=== PATIENT | male | born 1955 | race Caucasian/White ===

== ENCOUNTER 2020-05-11 09:32 | Inpatient (IN) | payer MEDICARE, OTHER, SELFPAY ==
[2020-05-11] VITALS (15 sets, daily range): BP systolic 107–150; BP diastolic 61–78; PULSE 89–100; RESP 11–37; TEMP 36.2–36.6; O2SAT 80–97; BMI 34.5
--- NOTE | ~2020-05-11 | XR_ITS ---
EXAMINATION: XR chest 1V portable EXAM DATE: 05/11/2020 10:25 INDICATION: Shortness of breath, chest tightness. TECHNIQUE: Portable AP frontal chest x-ray was obtained. Comparison is made to prior examination from 06/08/2017. FINDINGS: Mild cardiomegaly. Pulmonary vascular congestion. Bibasilar subsegmental atelectasis. There is indistinct reticulation with a bibasal predominance which may indicate pulmonary edema. No sizabl e pleural effusion. No pneumothorax. Mild bony degenerative changes. IMPRESSION: 1. Findings consistent with mild CHF exacerbation. 2. Bibasilar subsegmental atelectasis. Reviewed, dictated and finalized at location B. ROENTEROLOGY NURSE
--- NOTE | ~2020-05-11 | US_ITS ---
EXAMINATION:US venous doppler LE BI INDICATION:Calf pain and edema TECHNIQUE: Multiple grayscale, color flow and Doppler images of the right and left lower extremity de ep venous systems were obtained and reviewed. COMPARISON: No prior studies for comparison. FINDINGS: The common femoral, superficial femoral and popliteal veins demonstrate normal respiratory variation, augmentation and compressibility. Color flow is also seen within the posterior tibial, pe roneal, greater saphenous and profunda veins. Right peroneal vein not well visualized. IMPRESSION: 1: No lower extremity deep venous thrombosis. Reviewed, dictated and finalized at location A. EDIENT SPECIALIST
--- NOTE | 2020-05-11 10:06 | ECG_ITS ---
Measurements Intervals [place] Rate: 98 P: 58 MO: 165 QRS: 60 QRSD: 93 T: 41 QT: 311 QTc: 397 Interpretive Statements SINUS RHYTHM DELAYED PRECORDIAL R/S TRANSITION BASELINE ARTIFACT- I, II, III, AVR, AVL, AVF, V5-V6 BORDERLINE ECG Electronically Signed On 05-11-2020 10:29:16 [employer]SE BUILDER by Marlon Andrade D.O.
[2020-05-11 10:21] LABS: Hemoglobin 14.8 g/dL (14.0-18.0); Immature Platelet Fraction Pct 7.3 % (0.9-11.2); Mean Corpuscular HGB Conc 30.2 g/dl (32-36); Mean Corpuscular Hemoglobin 27.7 pg (26-34); Mean Corpuscular Volume 91.8 fl (80-100); Mean Platelet Volume 11.6 fl (7.4-10.4); Platelet Count Result 235 k/mm3 (150-375); Red Blood Count 5.34 M/mm3 (4.6-6.20); Red Cell Distribution Width 15.4 % (11.5-14.5); White Blood Count 12.3 K/mm3 (4.5-10.0)
[2020-05-11 10:23] LABS: Alveolar/Arterial O2 Gradient 66.1 mmHg; Base Excess ABG 5.3 mEq/l (+/-2.0); Device NASAL CANNULA; Fractional Inspired Oxygen 28 %; HCO3 ABG 32.2 mEq/l (22.0-26.0); Modified Allen's Test Pass; Oxygen Content ABG 18.7 %vol (16.0-22.0); Oxygen Saturation ABG 92.7 % (95.0-100.0); Oxyhemoglobin 91.6 % THb (90.0-100.0); PO2 ABG 67.5 mmHg (80.0-100.0); PO2 FiO2 Ratio Arterial Blood 2.41 %; Site Drawn LEFT RADIAL; Total Hemoglobin 14.5 g/dL (12.0-18.0); pH ABG 7.377 (7.350-7.450)
[2020-05-11 10:37] LABS: Lymphocytes Absolute Manual 1.59 K/mm3 (1.1-4.5); Monocytes Absolute Manual 0.86 K/mm3 (0.1-0.90); Monocytes Percent Manual 7 % (3-9); Neutrophils Percent Manual 80 % (46-73); Platelet Estimate Adequate (Adequate); Total Cells Counted 100
[2020-05-11 10:38] LABS: Hypochromasia 1+ (NORMAL); Stomatocytes 1+ (NORMAL)
[2020-05-11 10:39] LABS: Ovalocytes 1+ (NORMAL)
[2020-05-11 10:42] LABS: Partial Thromboplastin Time 21.3 SECONDS (22.3-36.8)
[2020-05-11 10:43] LABS: INR 0.8; Prothrombin Time 11.9 Seconds (11.1-14.7)
[2020-05-11 10:44] LABS: Alanine Aminotransferase 18 U/L (4-50); Albumin Level 4.4 g/dL (3.5-5.1); Alkaline Phosphatase 67 U/L (38-126); Anion Gap 8 mmol/L (8-16); Aspartate Amino Transferase 34 U/L (17-59); Bilirubin,Total 0.7 mg/dL (0.2-1.3); Blood Urea Nitrogen 20 mg/dL (9-20); Calcium 9.6 mg/dL (8.4-10.2); Carbon Dioxide 36 mmol/L (22-30); Chloride 97 mmol/L (98-107); Estimated CRCL calculation 107 ml/min; Estimated Glomerular Filt Rate > 60; Glucose 191 mg/dL (75-110); Magnesium 1.8 mg/dL (1.6-2.3); Potassium 5.1 mmol/L (3.4-5.0); Sodium 141 mmol/L (137-145)
[2020-05-11 10:55] LABS: NT Pro B Type Natriuretic Pept 728 PG/ML (5-100); Troponin I 0.031 ng/mL (0.000-0.034)
--- NOTE | 2020-05-11 11:01 | ED.GENADULT ---
HPI - General Adult General Chief complaint: Shortness of Breath/Dyspnea Stated complaint: Low Oxygen x4 days Time Seen by Provider: 05/11/20 10:06 Source: patient, family and old records reviewed Mode of arrival: ambulatory Limitations: no limitations History of Present Illness HPI narrative: Patient is a 64-year-old male who presents from home for evaluation of described COPD exacerbation for the last 2 to 3 days patient notes feeling short of breath with his oxygenation in the seventies and eighties at home worse with minimal activity patient has not been seen for this complaint notes that he has had similar occurrence in the past patient does note productive cough and rhinorrhea and congestion over the last 2 days as well patient denies fever chest pain abdominal pain vomiting diarrhea sick contacts. Patient has been using his inhalers and nebulizer at home with no improvement. On arrival patient tachypneic with hypoxemia does not appear to be distressed or uncomfortable. Patient with history of tobacco abuse and was a former smoker. Patient lives at home with his . Patient on arrival denies any pain Related Data Home Medications Medication Instructions Recorded Confirmed amlodipine 05/11/20 amlodipine 05/11/20 05/11/20 atorvastatin 05/11/20 azithromycin 05/11/20 fluticasone propion-salmeterol INHALATION 05/11/20 fluticasone propion-salmeterol INHALATION 05/11/20 [Advair Diskus] furosemide 05/11/20 metformin mg 05/11/20 prednisone 05/11/20 ramipril mg 05/11/20 Allergies Allergy/AdvReac Type Severity Reaction Status Date / Time naproxen Allergy Unknown Hives / Verified 06/08/17 13:57 Red Face Review of Systems Review of Systems: All systems reviewed & are unremarkable except as noted in HPI and below [facility] Past Medical History Medical History (Updated 05/11/20 @ 12:59 by Agustin Silva PA-C) COPD (chronic obstructive pulmonary disease) Diabetes mellitus type 2 in nonobese Hypertension Social History Social History (Updated 05/11/20 @ 11:03 by Agustin Silva PA-C) Smoking status: Former smoker Exam Narrative: Exam Narrative: GENERAL: Well-appearing, obese, and in no acute distress. HEAD: Normocephalic, atraumatic. EYES: PERRLA and EOMI. ENT: Nares clear, no rhinorrhea or epistaxis. Mucous membranes moist. NECK: Supple. No adenopathy or masses. CHEST: Diminished on auscultation. No respiratory distress. No wheezes rales or rhonchi HEART: Regular rate and rhythm. No murmur heard. Normal peripheral pulses. ABDOMEN: Soft, nontender, nondistended EXTREMITIES: Normal range of motion. No edema. SKIN: Warm, dry, no rash. NEURO: No focal deficits. Alert and oriented x3. Cranial nerves II through XII grossly intact PSYCH: Normal mood and affect. Course Course Emergency Course: Patient is a 64-year-old male who presented with hypoxemia and URI symptoms will be placed in hospital for further evaluation was given Lasix given the congestive findings on chest x-ray coupled with his BMP. Patient resting comfortably in the room in no distress will be swabbed for Covid given his URI symptoms. Patient will also be managed as a COPD exacerbation given his similar occurrence in the past Consultations Consultation #1: Discussed case with hospitalist who has agreed to accept the patient would like the patient to be placed on medical floor Date: 05/11/20 Time: 12:59 Vital Signs Vital signs: Vital Signs Temperature 97.9 F 05/11/20 09:35 Pulse Rate 98 05/11/20 09:35 Respiratory Rate 26 H 05/11/20 09:35 Blood Pressure 112/67 05/11/20 09:35 Pulse Oximetry 80 L 05/11/20 09:35 Temperature 97.9 F 05/11/20 09:35 Pulse Rate 100 05/11/20 12:32 Respiratory Rate 21 H 05/11/20 12:32 Blood Pressure 130/69 05/11/20 12:32 Pulse Oximetry 95 05/11/20 12:32 Medical Decision Making MDM Narrative Medical decision making narrative: Patient evaluated the nahomy
[2020-05-11 11:02] LABS: Add Urine Microscopic? NO; Appearance Urine Clear (Clear); Bilirubin Urine Negative (Negative); Blood Urine Negative (Negative); Color Urine Straw (Yellow); Glucose Urine UA Negative (Negative); Ketones Urine Negative (Negative); Leukocyte Esterase Ur Negative LEU/UL (Negative); Mucus Urine Rare /lpf; Nitrate Urine Negative (Negative); Protein Urine Negative (Negative); RBC Urine 0-2 /hpf (0-2); Specific Grav Ur 1.011 (1.001-1.035); Urobilinogen Urine Negative mg/dL (<2.0); WBC Urine 0-3 /hpf
[2020-05-11] MEDS: FUROSEMIDE INJ 40 MG/4 ML VIAL IV PUSH (11:45)
--- NOTE | 2020-05-11 14:01 | PC.NURSE ---
This patient, Fadi Greenwood, was admitted to [facility] Surg Room 329-01. Patient/family oriented to hospital policies and general routines including ID bracelet, bed and alarms, visiting hours, pain management, procedures, bathroom and other care routines, personal items, smoking policy, room service/diet, and visiting hours. Information on how to activate the Rapid Response Team has been discussed. Patient/Family are encouraged to report perceived risks to care and to ask questions if they do not understand what they are told or what they should do.
--- NOTE | 2020-05-11 15:00 | PM.IMHP ---
H&P: HPI History of Present Illness Date/Time: 05/11/20 15:00 Chief Complaint: Shortness of breath. Narrative: This is a 64-year-old male, former smoker, with COPD, chronic respiratory failure on nocturnal oxygen, type 2 diabetes mellitus, hypertension, and hyperlipidemia who presented to the emergency department earlier today from home with complaints of shortness of breath. He began feeling short of breath about 3 days ago reports progressive dyspnea on lesser and lesser exertion as well as a cough occasionally productive of yellow sputum. This typically happens to him once a year around this time, and he was prescribed a prednisone burst and azithromycin 2 days ago by his primary care provider. Unfortunately he continues to feel poorly and reports wheezing more than usual and despite using his inhalers and nebulizers. Sometime during the middle of the night he awoke suddenly with shortness of breath with reports of an SpO2 in the 70s and 80s at home, prompting his visit to the emergency department today. Chest x-ray done today showed evidence of pulmonary vascular congestion and mild cardiomegaly, and with further questioning he denies having history of congestive heart failure however he does see a form block maker and has a yearly echocardiogram, most recently taken just 2 weeks ago at [facility] in [place]. Prior to last night, he was not experiencing orthopnea or PND. He does have occasional lower extremity edema but nothing significant. He has not had fever, chills, or sweats. No anosmia or dysgeusia. No chest pain or pleuritic pain. He denies history of venous thromboembolism. No calf pain or tenderness. No known exposure to those positive for COVID-19. Review of Systems Review of Systems: Narrative: Twelve systems were reviewed with pertinent positives and negatives as per HPI. No headache. She has he has had some mild sinus congestion. No otalgia or odynophagia. He denies exertional chest pain and pleuritic pain. No nausea, vomiting, or diarrhea. Except as documented, all other systems were reviewed and are negative. [facility] Past Medical History Medical History (Updated 05/11/20 @ 20:41 by Ciara Stoddard PA-C) Anxiety Chronic obstructive pulmonary disease Chronic respiratory failure with hypoxia, on home oxygen therapy Patient wears 2 L nasal cannula at nighttime. Diabetic peripheral neuropathy Former smoker Patient smoked anywhere from 0.5 to 2 packs of cigarettes per day. Hyperlipidemia Hypertension Type 2 diabetes mellitus Surgical History Surgical History (Updated 05/11/20 @ 14:12 by Ciara Stoddard PA-C) History of abdominal surgery As an infant. Patient is a poor historian regarding this surgery but does have a midline abdominal scar. History of colonoscopy with polypectomy Family History Family History Father Acute myocardial infarction, Onset Age: 50 Social History Social History (Updated 05/11/20 @ 20:37 by Ciara Stoddard PA-C) Social History: The patient is and lives with his in [place]. He retired from [employer]. Smoked 0.5 to 2 packs of cigarettes per day for many years and quit about 5 years ago. 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 No illicit substance use. He designates his Arlene as his surrogate decision maker and he wishes to be a full code. Smoking packs per day: 1 Smoking cigarettes per day: 20.0 Smoking status: Former smoker Tobacco type: cigarettes Second hand tobacco smoke exposure: No Alcohol intake: former Substance use: former Gender identity (if verbalized by the patient): Male Sexual Orientation (if Verbalized by the Patient): Straight or Heterosexual Spiritual care concerns: No Meds Home Medications and Allergies Home Medications Medication Instructions Recorded Confirmed
[2020-05-11 17:39] LABS: Potassium 4.8 mmol/L (3.4-5.0)
[2020-05-11 18:38] LABS: Hemoglobin A1C 6.7 % (<5.7)
[2020-05-11] MEDS: INSULIN ASPART (*BKC) 100 UNITS/ML SUB-Q ×2 (19:06→22:35)
[2020-05-11] MEDS: FUROSEMIDE INJ 40 MG/4 ML VIAL 20 MG IV PUSH (19:08)
[2020-05-11 19:09] LABS: Glucose Point of Care 240 (65-105)
--- NOTE | 2020-05-11 20:28 | ECG_ITS ---
Measurements Intervals [place] Rate: 84 P: 55 GA: 174 QRS: 64 QRSD: 94 T: 56 QT: 354 QTc: 420 Interpretive Statements SINUS RHYTHM BASELINE ARTIFACT- I, II, III, AVR, AVF NORMAL ECG Electronically Signed On 05-12-2020 7:08:48 [employer] BARREL FINISHER by Marlon Andrade D.O.
[2020-05-11] MEDS: guaiFENesin 12 HR 600 MG TABCR PO (20:37)
[2020-05-11 21:06] LABS: SARS-CoV-2 RNA PCR Negative
[2020-05-11 21:16] LABS: Glucose Point of Care 284 (65-105)
[2020-05-11] MEDS: metFORMIN HCL 500 MG TABLET 1000 MG PO (22:34)
[2020-05-11] MEDS: FLUTICASONE/SALMETEROL 115-21 MCG INHALER 1 PUFF 2 PUFF INHALATION (22:50)
[2020-05-12] VITALS (17 sets, daily range): BP systolic 110–142; BP diastolic 57–68; PULSE 59–97; RESP 18–20; TEMP 36.5–36.6; O2SAT 86–94
[2020-05-12 00:19] LABS: Glucose Point of Care 101 (65-105)
[2020-05-12 06:16] LABS: Hematocrit 49.5 % (42.0-52.0); Hemoglobin 14.6 g/dL (14.0-18.0); Mean Corpuscular HGB Conc 29.5 g/dl (32-36); Mean Corpuscular Hemoglobin 27.5 pg (26-34); Mean Corpuscular Volume 93.2 fl (80-100); Mean Platelet Volume 9.5 fl (7.4-10.4); Platelet Count Result 249 k/mm3 (150-375); Red Blood Count 5.31 M/mm3 (4.6-6.20); Red Cell Distribution Width 15.3 % (11.5-14.5); White Blood Count 9.4 K/mm3 (4.5-10.0)
[2020-05-12 06:49] LABS: Blood Urea Nitrogen 21 mg/dL (9-20); Calcium 9.3 mg/dL (8.4-10.2); Carbon Dioxide > 40 mmol/L (22-30); Chloride 95 mmol/L (98-107); Estimated CRCL calculation 96 ml/min; Estimated Glomerular Filt Rate > 60; Glucose 105 mg/dL (75-110); Magnesium 1.9 mg/dL (1.6-2.3); Potassium 4.6 mmol/L (3.4-5.0); Sodium 140 mmol/L (137-145)
[2020-05-12] MEDS: ENOXAPARIN 40 MG/0.4 ML SYRINGE SUB-Q (10:16)
[2020-05-12] MEDS: guaiFENesin 12 HR 600 MG TABCR PO ×2 (10:16→21:46)
[2020-05-12] MEDS: predniSONE 20 MG TABLET 40 MG PO (10:16)
[2020-05-12] MEDS: ramipriL 5 MG CAPSULE 20 MG PO (10:18)
[2020-05-12] MEDS: FUROSEMIDE 20 MG TABLET PO (10:18)
[2020-05-12] MEDS: AZITHROMYCIN 250 MG TABLET 500 MG PO (10:18)
[2020-05-12] MEDS: ATORVASTATIN 20 MG TABLET PO (10:19)
[2020-05-12] MEDS: metFORMIN HCL 500 MG TABLET 1000 MG PO (10:19)
[2020-05-12] MEDS: amLODIPine BESYLATE 5 MG TABLET 10 MG PO (10:19)
[2020-05-12 12:16] LABS: Glucose Point of Care 236 (65-105)
[2020-05-12] MEDS: FLUTICASONE/SALMETEROL 115-21 MCG INHALER 1 PUFF 2 PUFF INHALATION ×2 (12:48→21:46)
--- NOTE | 2020-05-12 14:14 | PCRCNOTE ---
HOME O2 EVAL DONE, PT REQUIRES 2 L REST AND 4 L WITH EXERTION. SET UP WITH [facility] AND THEY WILL BRING UP TANK FOR D/C HOME
--- NOTE | 2020-05-12 14:20 | HOMEO2EVAL ---
Home Oxygen Evaluation RC: Home Oxygen (O2) Evaluation Start: 05/11/20 17:15 Freq: ONCE Status: Active Protocol: RPE Activity Type Activity Date Activity User E-Sign Co-Sign Detail Recorded Client Recorded Date Recorded By Document 05/12/20 11:00 [email or web address] [email or web address] 05/12/20 14:20 ELIZA Document 05/12/20 11:03 ELIZA [email or web address] 05/12/20 14:20 ELIZA Document 05/12/20 11:05 ELIZA [email or web address] 05/12/20 14:20 ELIZA Document 05/12/20 11:10 [email or web address] [email or web address] 05/12/20 14:20 ELIZA Document 05/12/20 11:13 ELIZA [email or web address] 05/12/20 14:20 ELIZA Document 05/12/20 11:15 ELIZA [email or web address] 05/12/20 14:20 ELIZA Document 05/12/20 11:25 ELIZA [email or web address] 05/12/20 14:20 ELIZA 05/12/20 05/12/20 05/12/20 11:00 11:03 11:05 Home O2 Evaluation Test Phase Resting Resting Resting Oxygen Delivery Room Air Nasal Cannula Nasal Cannula Oxygen Flow Rate (L/min) 1 2 Pulse Oximetry (90-100 %) 86 L 87 L 91 Home Oxygen Evaluation Comments Treatment Charges O2 Evaluation - Inpatient 05/12/20 05/12/20 05/12/20 11:10 11:13 11:15 Home O2 Evaluation Test Phase Exercise Exercise Exercise Oxygen Delivery Nasal Cannula Nasal Cannula Nasal Cannula Oxygen Flow Rate (L/min) 2 3 4 Pulse Oximetry (90-100 %) 86 L 87 L 90 Home Oxygen Evaluation Comments Treatment Charges 05/12/20 11:25 Home O2 Evaluation Test Phase Resting Oxygen Delivery Nasal Cannula Oxygen Flow Rate (L/min) 2 Pulse Oximetry (90-100 %) 93 Home Oxygen Evaluation Comments PT REQUIRES 2 L REST AND 4 L WITH ACTIVITY Treatment Charges
--- NOTE | 2020-05-12 16:56 | PM.IMPN ---
Progress Note: A&P Assessment and Plan (1) Acute on chronic respiratory failure with hypoxia and hypercapnia: Code(s): J96.21 - Acute and chronic respiratory failure with hypoxia; J96.22 - Acute and chronic respiratory failure with hypercapnia Status: Acute Assessment and Plan: On supplemental oxygen 2 L by NC Systemic steroids Breathing treatments Levofloxacin (2) Acute exacerbation of chronic obstructive airways disease: Code(s): J44.1 - Chronic obstructive pulmonary disease with (acute) exacerbation Status: Acute Assessment and Plan: States that this usually happens once a year as his PCP treats him with Z-pack and oral steroids but did not work this time Changed in sputum quality (3) Former smoker: Code(s): Z87.891 - Personal history of nicotine dependence Status: Acute Assessment and Plan: Quit 4 years ago. (4) Hypertension: Code(s): I10 - Essential (primary) hypertension Status: Acute Assessment and Plan: Continue home meds (5) Diabetic peripheral neuropathy: Code(s): E11.42 - Type 2 diabetes mellitus with diabetic polyneuropathy Status: Inactive Assessment and Plan: Continue home meds (6) Chronic respiratory failure with hypoxia, on home oxygen therapy: Code(s): J96.11 - Chronic respiratory failure with hypoxia; Z99.81 - Dependence on supplemental oxygen Status: Inactive Assessment and Plan: Exacerbated Continue breathing treatments. Subjective Date/time seen: 05/12/20 16:56 I feel better Review of Systems Review of Systems: Narrative: worsening sob. Constitutional: Comments: no fevers, no rigors, no chills. ENT: Comments: no throat pain, no nasal congestion. Cardiovascular: Comments: no pnd, no orthopnea. Respiratory: Comments: change in sputum quality from clear to green. Gastrointestinal: Comments: no n/v/abdominal pain/diarrhea. Musculoskeletal: Comments: no joint enlargement. Integumentary/Breasts: Comments: no rashes Neurologic: Comments: no sensory motor deficit Exam Narrative: Exam Narrative: Sitting by the edge of the bed. Const: General: comfortable, no acute distress, alert, awake and Physically active Nutritional Appearance: well nourished Orientation/consciousness: patient oriented x3 HENMT: Head: normal to inspection and normocephalic Ears: hearing grossly normal bilaterally General nose exam: Normal external nose present Face and sinus: normal facial exam Eyes: General: appearance normal, both eyes and all related structures Pupils: Equal, round and reactive pupils present EOM: EOMs intact bilaterally Neck: Neck: no lymphadenopathy, supple and no JVD Resp: Auscultation: wheezes and diminished lung sounds Cardio: Rate: regular rate Rhythm: regular rhythm GI: GI Palp: Yes Soft to palpation and Yes No hepatosplenomegaly present Skin: Rashes: no rashes Neuro: General: patient oriented x3 and CN's II-XI intact bilaterally Cranial nerves: Yes CN's II-XII intact bilaterally and Yes Equal, round and reactive pupils present Cognition (Neuro): normal cognition Speech: normal speech Gait exam (Neuro): Normal gait present Motor exam (neuro): 5/5 motor strength present throughout Extrem: General: no pedal edema Objective Data Vital Signs Vital Signs: Vital Signs - 24 hr 05/11/20 20:00 05/11/20 21:00 05/12/20 00:00 Temperature 97.1 F L Pulse Rate 91 74 Respiratory Rate 18 Blood Pressure 145/64 H Pulse Oximetry 91 93 05/12/20 04:00 05/12/20 06:00 05/12/20 06:22 Temperature 97.7 F Pulse Rate 97 93 Respiratory Rate 20 Blood Pressure 110/67 Pulse Oximetry 90 90 05/12/20 08:00 05/12/20 11:00 05/12/20 11:03 Temperature Pulse Rate 86 Respiratory Rate Blood Pressure Pulse Oximetry 86 L 87 L 05/12/20 11:05 05/12/20 11:10 05/12/20 11:13 Temperature Pulse Rate Respiratory Rate Blood Pressure
[2020-05-12 17:10] LABS: Glucose Point of Care 160 (65-105)
[2020-05-12] MEDS: methylPREDNISolone SOD SUCC 40 MG VIAL IV PUSH ×2 (18:29→23:56)
[2020-05-12 21:27] LABS: Glucose Point of Care 318 (65-105)
[2020-05-12 21:27] LABS: Glucose Point of Care 189 (65-105)
[2020-05-13] VITALS (8 sets, daily range): BP systolic 123–136; BP diastolic 58–73; PULSE 82–95; RESP 16–20; TEMP 36.4–36.7; O2SAT 87–99
[2020-05-13] MEDS: methylPREDNISolone SOD SUCC 40 MG VIAL IV PUSH ×4 (06:02→23:35)
[2020-05-13] MEDS: amLODIPine BESYLATE 5 MG TABLET 10 MG PO (08:46)
[2020-05-13] MEDS: ATORVASTATIN 20 MG TABLET PO (08:47)
[2020-05-13] MEDS: ramipriL 5 MG CAPSULE 20 MG PO (08:48)
[2020-05-13] MEDS: guaiFENesin 12 HR 600 MG TABCR PO ×2 (08:48→21:05)
[2020-05-13] MEDS: FLUTICASONE/SALMETEROL 115-21 MCG INHALER 1 PUFF 2 PUFF INHALATION ×2 (08:49→21:05)
[2020-05-13] MEDS: ENOXAPARIN 40 MG/0.4 ML SYRINGE SUB-Q (08:49)
[2020-05-13 08:56] LABS: Glucose Point of Care 195 (65-105)
[2020-05-13] MEDS: INSULIN ASPART (*BKC) 100 UNITS/ML SUB-Q ×2 (12:31→17:39)
[2020-05-13 12:41] LABS: Glucose Point of Care 354 (65-105)
--- NOTE | 2020-05-13 16:03 | PM.IMPN ---
Progress Note: A&P Assessment and Plan (1) Acute on chronic respiratory failure with hypoxia and hypercapnia: Code(s): J96.21 - Acute and chronic respiratory failure with hypoxia; J96.22 - Acute and chronic respiratory failure with hypercapnia Status: Acute Assessment and Plan: On supplemental O2 Normally on oxygen at night time Improved Will wean off of Oxygen as needed (2) Acute exacerbation of chronic obstructive airways disease: Code(s): J44.1 - Chronic obstructive pulmonary disease with (acute) exacerbation Status: Acute Assessment and Plan: Systemic steroids Breathing treatments Supplemental O2 (3) Suspected COVID-19 virus infection: Code(s): Z20.822 - Contact with and (suspected) exposure to COVID-19 Status: Acute Assessment and Plan: Ruled out. (4) Former smoker: Code(s): Z87.891 - Personal history of nicotine dependence Status: Acute Assessment and Plan: History of Tobacco use Quit 4 years ago (5) Hypertension: Code(s): I10 - Essential (primary) hypertension Status: Acute Assessment and Plan: Continue to monitor Continue home meds Subjective Date/time seen: 05/13/20 16:03 Patient states that he feels like he usually feels. No events overnight. Review of Systems Review of Systems: Narrative: Patient denies any issues. Constitutional: Comments: no fevers, no rigors, no chills. Cardiovascular: Comments: no chest pain. Respiratory: Comments: some sob. Gastrointestinal: Comments: no n/v/abdominal pain Musculoskeletal: Comments: no joint enlargement Neurologic: Comments: no sensory motor deficit Exam Narrative: Exam Narrative: Sitting by the edge of the bed. Const: General: comfortable, no acute distress, alert, awake and Physically active Nutritional Appearance: average body habitus Orientation/consciousness: patient oriented x3 HENMT: Head: normocephalic Ears: hearing grossly normal bilaterally Face and sinus: normal facial exam Eyes: General: appearance normal, both eyes and all related structures Pupils: Equal, round and reactive pupils present EOM: EOMs intact bilaterally Neck: Neck: no lymphadenopathy, supple and no JVD Resp: Auscultation: clear to auscultation bilaterally and diminished lung sounds Cardio: Jugular venous distension: no JVD Rate: regular rate Rhythm: regular rhythm GI: GI Palp: Yes Soft to palpation and Yes No hepatosplenomegaly present Skin: Wounds: no wounds Neuro: General: patient oriented x3 and CN's II-XI intact bilaterally Cranial nerves: Yes CN's II-XII intact bilaterally and Yes Equal, round and reactive pupils present Cognition (Neuro): normal cognition Motor exam (neuro): 5/5 motor strength present throughout Extrem: General: pedal edema bilaterally (ankle.) Objective Data Vital Signs Vital Signs: Vital Signs - 24 hr 05/12/20 20:00 05/12/20 22:00 05/12/20 22:04 Temperature 97.8 F Pulse Rate 89 Respiratory Rate 20 Blood Pressure 133/68 Pulse Oximetry 94 94 94 05/13/20 06:00 05/13/20 08:39 05/13/20 13:08 Temperature 97.8 F Pulse Rate 91 82 Respiratory Rate 18 16 Blood Pressure 123/73 136/63 Pulse Oximetry 92 99 87 L 05/13/20 13:10 05/13/20 13:17 05/13/20 14:00 Temperature 98.0 F Pulse Rate 95 Respiratory Rate 18 Blood Pressure 132/62 Pulse Oximetry 92 92 99 Intake/Output Intake/Output: Intake & Output 05/10/20 05/11/20 05/12/20 05/13/20 23:59 23:59 23:59 23:59 Intake Total 290 2000 790 Output Total 1000 1700 1400 Balance -710 300 -610 Meds/Results Medications: Active Medications Generic Name Dose Route Start Last Admin Trade Name Freq PRN Reason Stop Dose Admin Acetaminophen 650 mg 05/11/20 13:01 Acetaminophen 325 Mg Tablet PO Q4H PRN Mild Pain (1-3) Albuterol 2.5 mg 05/11/20 21:15 Albuterol Sulfate Neb 2.5 Mg/0.5 Ml Inh INHALATION Q4HRT PRN SOB
[2020-05-13 17:13] LABS: Glucose Point of Care 216 (65-105)
[2020-05-13 21:41] LABS: Glucose Point of Care 320 (65-105)
[2020-05-14] VITALS (7 sets, daily range): BP systolic 106–142; BP diastolic 60–70; PULSE 82–84; RESP 20; TEMP 36.3–36.4; O2SAT 93–100
[2020-05-14] MEDS: methylPREDNISolone SOD SUCC 40 MG VIAL IV PUSH ×3 (05:12→17:36)
[2020-05-14 06:42] LABS: Basophils Percent Auto 0.1 % (0.2-1.2); Hematocrit 45.4 % (42.0-52.0); Hemoglobin 13.6 g/dL (14.0-18.0); Immature Granulocyte Absolute 0.06 K/mm3 (0.00-0.031); Immature Granulocyte Percent A 0.5 % (0-0.5); Lymphocytes Absolute Auto 0.46 K/mm3 (0.9-3.2); Lymphocytes Percent Auto 3.8 % (18.3-44.2); Mean Corpuscular Hemoglobin 26.8 pg (26-34); Mean Corpuscular Volume 89.5 fl (80-100); Mean Platelet Volume 9.8 fl (7.4-10.4); Monocytes Absolute Auto 0.6 K/mm3 (0.1-0.6); Monocytes Percent Auto 4.5 % (2.6-8.5); Neutrophils Absolute Auto 11.1 K/mm3 (1.3-6.7); Neutrophils Percent Auto 91.1 % (45.5-73.1); Platelet Count Result 261 k/mm3 (150-375); Red Blood Count 5.07 M/mm3 (4.6-6.20); Red Cell Distribution Width 14.5 % (11.5-14.5); White Blood Count 12.2 K/mm3 (4.5-10.0)
[2020-05-14 07:02] LABS: Blood Urea Nitrogen 29 mg/dL (9-20); Calcium 8.6 mg/dL (8.4-10.2); Carbon Dioxide > 40 mmol/L (22-30); Chloride 96 mmol/L (98-107); Estimated CRCL calculation 96 ml/min; Estimated Glomerular Filt Rate > 60; Glucose 221 mg/dL (75-110); Potassium 4.9 mmol/L (3.4-5.0); Sodium 137 mmol/L (137-145)
[2020-05-14 08:08] LABS: Glucose Point of Care 194 (65-105)
[2020-05-14] MEDS: guaiFENesin 12 HR 600 MG TABCR PO ×2 (08:12→20:30)
[2020-05-14] MEDS: amLODIPine BESYLATE 5 MG TABLET 10 MG PO (08:12)
[2020-05-14] MEDS: ENOXAPARIN 40 MG/0.4 ML SYRINGE SUB-Q (08:12)
[2020-05-14] MEDS: ATORVASTATIN 20 MG TABLET PO (08:13)
[2020-05-14] MEDS: ramipriL 5 MG CAPSULE 20 MG PO (08:13)
[2020-05-14] MEDS: FLUTICASONE/SALMETEROL 115-21 MCG INHALER 1 PUFF 2 PUFF INHALATION ×2 (08:16→20:32)
[2020-05-14 11:21] LABS: Glucose Point of Care 479 (65-105)
[2020-05-14 11:21] LABS: Glucose Point of Care > 500 (65-105)
[2020-05-14] MEDS: INSULIN ASPART (*BKC) 100 UNITS/ML 6 UNITS SUB-Q (12:10)
[2020-05-14] MEDS: INSULIN ASPART (*BKC) 100 UNITS/ML SUB-Q ×2 (12:10→17:33)
--- NOTE | 2020-05-14 15:00 | PM.IMPN ---
Progress Note: A&P Assessment and Plan (1) Acute exacerbation of chronic obstructive airways disease: Code(s): J44.1 - Chronic obstructive pulmonary disease with (acute) exacerbation Status: Acute Assessment and Plan: Improved Systemic steroids Breathing treatments Levofloxacin (2) Acute on chronic respiratory failure with hypoxia and hypercapnia: Code(s): J96.21 - Acute and chronic respiratory failure with hypoxia; J96.22 - Acute and chronic respiratory failure with hypercapnia Status: Acute Assessment and Plan: Likely secondary to COPD exacerbation. Improved (3) Pulmonary vascular congestion: Code(s): R09.89 - Other specified symptoms and signs involving the circulatory and respiratory systems Status: Acute Assessment and Plan: Gentle diuresis (4) Former smoker: Code(s): Z87.891 - Personal history of nicotine dependence Status: Acute Assessment and Plan: Likely has emphysema (5) Hypertension: Code(s): I10 - Essential (primary) hypertension Status: Acute Assessment and Plan: Continue home meds Continue to monitor Subjective Date/time seen: 05/14/20 15:00 I feel better. Review of Systems Review of Systems: Narrative: Patient denies any complains at this time. No new issues overnight. Constitutional: Comments: no fevers, no rigors, no chills. Cardiovascular: Comments: no chest pain, no orthopnea, leg swelling. Respiratory: Comments: worsening sob. Gastrointestinal: Comments: no n/v/abdominal pain. Musculoskeletal: Comments: no joint pain. Integumentary/Breasts: Comments: no rashes Neurologic: Comments: no sensory motor deficit Exam Narrative: Exam Narrative: Sitting by the edge of the bed. Const: General: cooperative, comfortable, no acute distress, alert, awake and Physically active Nutritional Appearance: average body habitus Orientation/consciousness: patient oriented x3 HENMT: Head: normocephalic Ears: hearing grossly normal bilaterally General nose exam: Normal external nose present Face and sinus: normal facial exam Eyes: General: appearance normal, both eyes and all related structures Pupils: Equal, round and reactive pupils present EOM: EOMs intact bilaterally Neck: Neck: no lymphadenopathy, supple and no JVD Resp: Effort & Inspection: able to speak in complete sentences Auscultation: clear to auscultation bilaterally and diminished lung sounds Cardio: Jugular venous distension: no JVD Rate: regular rate Rhythm: regular rhythm GI: GI Palp: Yes Soft to palpation and Yes No hepatosplenomegaly present Skin: Lesions: no lesions Rashes: no rashes Wounds: no wounds Neuro: General: patient oriented x3 and CN's II-XI intact bilaterally Cranial nerves: Yes CN's II-XII intact bilaterally and Yes Equal, round and reactive pupils present Cognition (Neuro): normal cognition Speech: normal speech Motor exam (neuro): 5/5 motor strength present throughout Extrem: General: edema bilateral (1+) Objective Data Vital Signs Vital Signs: Vital Signs - 24 hr 05/13/20 20:00 05/13/20 22:00 05/14/20 06:00 Temperature 97.6 F 97.5 F L Pulse Rate 83 83 Respiratory Rate 20 20 Blood Pressure 134/58 L 142/60 H Pulse Oximetry 96 96 93 05/14/20 08:15 05/14/20 10:50 05/14/20 14:00 Temperature 97.3 F L Pulse Rate 84 Respiratory Rate 20 Blood Pressure 110/70 Pulse Oximetry 93 95 100 Intake/Output Intake/Output: Intake & Output 05/11/20 05/12/20 05/13/20 05/14/20 23:59 23:59 23:59 23:59 Intake Total 290 2000 1460 990 Output Total 1000 1700 2325 400 Balance -710 300 -865 590 Meds/Results Medications: Active Medications Generic Name Dose Route Start Last Admin Trade Name Freq PRN Reason Stop Dose Admin Acetaminophen 650 mg 05/11/20 13:01 Acetaminophen 325 Mg Tablet PO Q4H PRN Mild Pain (1-3) Albuterol 2.5 mg 05/11/20 21:15 Albuterol Sulfate
[2020-05-14] MEDS: FUROSEMIDE INJ 40 MG/4 ML VIAL IV PUSH (17:35)
[2020-05-14 18:16] LABS: Glucose Point of Care 235 (65-105)
[2020-05-14] MEDS: INSULIN ASPART (*BKC) 100 UNITS/ML 12 UNITS SUB-Q (21:11)
[2020-05-14 21:15] LABS: Glucose Point of Care 414 (65-105)
[2020-05-14 21:54] LABS: Hemoglobin A1C 6.8 % (<5.7)
[2020-05-15] MEDS: methylPREDNISolone SOD SUCC 40 MG VIAL IV PUSH ×2 (01:03→05:39)
[2020-05-15 01:26] LABS: Glucose Point of Care 140 (65-105)
[2020-05-15 06:00] VITALS: BP 131/72; PULSE 90; RESP 16; TEMP 36.2; O2SAT 95
[2020-05-15 08:00] VITALS: O2SAT 95
[2020-05-15] MEDS: ATORVASTATIN 20 MG TABLET PO (08:10)
[2020-05-15] MEDS: guaiFENesin 12 HR 600 MG TABCR PO (08:11)
[2020-05-15] MEDS: FUROSEMIDE INJ 40 MG/4 ML VIAL IV PUSH (08:11)
[2020-05-15] MEDS: amLODIPine BESYLATE 5 MG TABLET 10 MG PO (08:11)
[2020-05-15] MEDS: ENOXAPARIN 40 MG/0.4 ML SYRINGE SUB-Q (08:11)
[2020-05-15] MEDS: ramipriL 5 MG CAPSULE 20 MG PO (08:12)
[2020-05-15 09:28] LABS: Glucose Point of Care 190 (65-105)
--- NOTE | 2020-05-15 10:02 | PM.DS ---
DS: Admitting Diagnosis Admitting Diagnosis Admitting Diagnosis: (1) Acute on chronic respiratory failure with hypoxia and hypercapnia: (2) Pulmonary vascular congestion: (3) Type 2 diabetes mellitus: (4) Hypertension: (5) Hyperlipidemia: (6) Suspected COVID-19 virus infection: DS: Discharge Diagnosis Discharge Diagnosis (1) Acute exacerbation of chronic obstructive airways disease: Code(s): J44.1 - Chronic obstructive pulmonary disease with (acute) exacerbation Status: Acute Assessment and Plan: Resolved (2) Acute on chronic respiratory failure with hypoxia and hypercapnia: Code(s): J96.21 - Acute and chronic respiratory failure with hypoxia; J96.22 - Acute and chronic respiratory failure with hypercapnia Status: Acute Assessment and Plan: Resolved (3) Former smoker: Code(s): Z87.891 - Personal history of nicotine dependence Status: Acute Assessment and Plan: Continue (4) Suspected COVID-19 virus infection: Code(s): Z20.822 - Contact with and (suspected) exposure to COVID-19 Status: Acute Assessment and Plan: Ruled out (5) Hypertension: Code(s): I10 - Essential (primary) hypertension Status: Acute Assessment and Plan: Continue home meds (6) Hyperkalemia: Code(s): E87.5 - Hyperkalemia Status: Acute Assessment and Plan: Resolved DS: Summary Hospital Course Hospital Course: This is a 64-year-old male, former smoker, with COPD, chronic respiratory failure on nocturnal oxygen, type 2 diabetes mellitus, hypertension, and hyperlipidemia who presented to the emergency department from home with complaints of shortness of breath. He began feeling short of breath about 3 days ago reports progressive dyspnea with minimal exertion as well as a cough occasionally productive of yellow sputum. This typically happens to him once a year around this time, and he was prescribed a Z-pack and prednisone by his primary care provider. But did not resolve and continues to have wheezing more than usual and despite using his inhalers and nebulizers. Sometime during the middle of the night he awoke suddenly with shortness of breath with reports of an SpO2 in the 70s and 80s at home, prompting his visit to the emergency department today. Chest x-ray done at presentation showed evidence of pulmonary vascular congestion and mild cardiomegaly, and with further questioning he denies having history of congestive heart failure however he does see a business operations director and has a yearly echocardiogram, most recently taken just 2 weeks prior at [facility] in [place]. He has had pedal edema to the ankles. Patient was placed on systemic steroids, antibiotics and was gently diuresed he did well and was evaluated for home O2 during day time which he qualified for. Patient was discharged home with follow up with his PCP No consults were obtained Status at Discharge Functional status at discharge: independent ambulation Overall status at discharge: patient is back to baseline Time Spent with Patient Time attestation: Total time spent providing and/or coordinating discharge services: Exam Const: General: cooperative, comfortable, no acute distress, well developed, alert, awake and Physically active Nutritional Appearance: average body habitus Orientation/consciousness: patient oriented x3 HENMT: Head: normal to inspection and atraumatic Ears: hearing grossly normal bilaterally General nose exam: Normal external nose present Face and sinus: normal facial exam Eyes: General: appearance normal, both eyes and all related structures Pupils: Equal, round and reactive pupils present EOM: EOMs intact bilaterally Neck: Neck: no lymphadenopathy and no JVD Resp: Effort & Inspection: normal respiratory effort Auscultation: diminished lung sounds Cardio: Jugular venous distension: no JVD Rate: regular rate Rhythm:
--- NOTE | 2020-05-15 10:21 | WPDCDIQUERY2 ---
CDI Query Clarification Request -Pulmonary vascular congestion has been documented -CXR impression: findings c/w mild CHF exacerbation, bibasilar subsegmental atelectasis -Furosemide 40mg IV BID ordered Please clarify if there is a known cause, probably cause for the pulmonary vascular congestion.
== END 2020-05-15 11:05 | disposition home or self-care (01) | DRG 190 ==
LOC: ANHED 12:59 → ANH3MEDSUR 13:52
PROVIDERS: Emergency Medicine Emergency Medical Services; Internal Medicine; Physician Assistant; Admitting Provider Internal Medicine; Emergency Provider Emergency Medicine; Visit Provider Internal Medicine
DX: J44.1 Chronic obstructive pulmonary disease with (acute) exacerbation (principal); J96.21 Acute and chronic respiratory failure with hypoxia; J96.22 Acute and chronic respiratory failure with hypercapnia; I27.20 Pulmonary hypertension, unspecified; Z99.81 Dependence on supplemental oxygen; Z20.822 Contact with and (suspected) exposure to COVID-19; E87.70 Fluid overload, unspecified; I51.7 Cardiomegaly; E78.5 Hyperlipidemia, unspecified; E11.42 Type 2 diabetes mellitus with diabetic polyneuropathy; I10 Essential (primary) hypertension; E87.5 Hyperkalemia; Z87.891 Personal history of nicotine dependence; Z79.899 Other long term (current) drug therapy
CPT/HCPCS: 36415; 36600; 71045; 80048; 80053; 81003; 82805; 82948; 83036; 83735; 83880; 84132; 84484; 85025; 85027; 85055; 85610; 85730; 93005; 93970; 94618; 94640; 94667; 94668; 96372; 96374; 96376; 99285; A9270; C9803; G0378; J1650; J1815; J1940; J2920; J7512; U0003; U0005

== ENCOUNTER 2020-06-23 12:34 | Outpatient (CLI) | payer MEDICARE, OTHER, SELFPAY ==
--- NOTE | ~2020-06-23 | CT_ITS ---
EXAMINATION: CT lung screening DATE: 06/23/2020 13:40 INDICATION: Z87.891 - Personal history of nicotine dependence TECHNIQUE: Computed tomography (CT) of the chest was performed without intravenous contrast. Addition al 3D reconstructions utilizing coronal maximum intensity projection (MIP) were performed. Automated exposure control and iterative reconstruction technique were employed. The dose-length product was 38 1.36 mGy-cm. COMPARISON: None FINDINGS: Linear band of discoid atelectasis/scarring in the anterior segment of the right upper lobe along the minor fissure. Additional mild atelectasis at the posterior sulcus of the right lower lobe. There ar e couple small calcified nodules at the lingula along with calcified mediastinal and left hilar lymph nodes and multiple small hepatic and splenic calcifications, all consistent with old granulomatous d isease. No other suspicious pulmonary nodules, pneumonia or other pulmonary infiltrates, pulmonary ed annabella or pleural effusion. Heart size is normal. No pericardial effusion. Atherosclerotic coronary owen ry calcifications. Dense aortic valve and mitral annular calcifications. No pathologically enlarged t horacic lymphadenopathy. Enlargement of the central pulmonary arteries consistent with pulmonary owen rial hypertension. Extensive atherosclerotic calcification along the normal caliber thoracic and uppe r abdominal aorta and the major branches arising from the aorta and the chest and upper abdomen. Mild scattered degenerative skeletal changes. Partially calcified gallstones at the neck of the otherwise normal gallbladder. IMPRESSION: 1. . Lung-RADS category 1: Negative. Continue annual screening with noncontrast low-dose chest CT in 12 months. Reviewed, dictated and finalized at location B.
[2020-06-23 13:00] VITALS: PULSE 90; O2SAT 91
[2020-06-23 13:05] VITALS: PULSE 130; O2SAT 86
[2020-06-23 13:07] VITALS: PULSE 133; O2SAT 87
[2020-06-23 13:10] VITALS: O2SAT 90
[2020-06-23 13:15] VITALS: PULSE 90; O2SAT 92
--- NOTE | 2020-06-23 13:41 | HOMEO2EVAL ---
Home Oxygen Evaluation RC: Home Oxygen (O2) Evaluation Start: 06/23/20 13:33 Freq: Status: Active Protocol: RPE Activity Type Activity Date Activity User E-Sign Co-Sign Detail Recorded Client Recorded Date Recorded By Document 06/23/20 13:00 ELIZA [email or web address] 06/23/20 13:40 ELIZA Document 06/23/20 13:05 ELIZA [email or web address] 06/23/20 13:40 ELIZA Document 06/23/20 13:07 ELIZA [email or web address] 06/23/20 13:40 ELIZA Document 06/23/20 13:10 ELIZA [id number] 06/23/20 13:40 ELIZA Document 06/23/20 13:15 ELIZA [email or web address] 06/23/20 13:40 ELIZA 06/23/20 06/23/20 06/23/20 13:00 13:05 13:07 Home O2 Evaluation Test Phase Resting Exercise Exercise Oxygen Delivery Room Air Room Air Nasal Cannula Oxygen Flow Rate (L/min) 1 Pulse Oximetry (90-100 %) 91 86 L 87 L Pulse Rate (60-100 beats/min) 90 130 H 133 H Ambulation Distance (feet) Home Oxygen Evaluation Comments Treatment Charges O2 Evaluation - Outpatient 06/23/20 06/23/20 13:10 13:15 Home O2 Evaluation Test Phase Exercise Resting Oxygen Delivery Nasal Cannula Room Air Oxygen Flow Rate (L/min) 2 Pulse Oximetry (90-100 %) 90 92 Pulse Rate (60-100 beats/min) 90 Ambulation Distance (feet) 400 Home Oxygen Evaluation Comments HOME O2 NEEDED AT 2 L WITH EXERTION Treatment Charges
--- NOTE | 2020-06-23 13:45 | PCRCNOTE ---
HOME O2 EVAL COMPLETED. FAXED TO OFFICE STAFF
== END 2020-06-23 12:35 | disposition home or self-care (01) ==
PROVIDERS: Visit Provider Internal Medicine Pulmonary Disease
DX: Z12.2 Encounter for screening for malignant neoplasm of respiratory organs (principal); Z87.891 Personal history of nicotine dependence
CPT/HCPCS: 71271; 94618

== ENCOUNTER 2020-08-06 10:25 | Inpatient (IN) | payer MEDICARE, OTHER, SELFPAY ==
[2020-08-06] VITALS (18 sets, daily range): BP systolic 88–116; BP diastolic 52–70; PULSE 80–116; RESP 15–28; TEMP 36.3–36.7; O2SAT 90–99; BMI 32.9
--- NOTE | ~2020-08-06 | US_ITS ---
EXAMINATION: US art doppler w press LE BI DATE: 08/07/2020 15:53 INDICATION: Claudication. TECHNIQUE: Segmental pressures and plethysmographic and Doppler waveforms of the brachial and lower e xtremity arteries were obtained. COMPARISON: None. FINDINGS: Right and left brachial artery pressures of 129 mm Hg and 138 mm Hg, respectively, are concordant (no rmal difference <= 30 mmHg). The right high-thigh pressure index could not be measured due to inability to cuff occlude the arteri es (normal > 1.2). The right ankle-brachial index (JERSON) is 0.63 (normal >= 0.9-1.0). The right great toe-brachial index (TBI) is 0.56 (normal >= 0.65). Arterial Doppler waveforms are biphasic from commo n femoral artery to the ankle. The left high-thigh pressure index could not be measured due to inability to cuff occlude the arterie s. The left JERSON is 0.85. The left TBI is 0.68. Arterial Doppler waveforms are biphasic from common f emoral artery to the ankle. IMPRESSION: 1. Moderately decreased right JERSON and mildly decreased left JERSON, consistent with arterial occlusive d isease. Reviewed, dictated and finalized at location A. IMPRESSION: 1. Moderately decreased right JERSON and mildly decreased left JERSON, consistent wit h arterial occlusive disease.
--- NOTE | ~2020-08-06 | XR_ITS ---
EXAMINATION: XR chest 1V portable INDICATION: Cough and pneumonia TECHNIQUE: Portable AP chest at 1300 hours COMPARISON: 08/06/2020 FINDINGS: Patchy opacities persist in the right mid and lower lung zones with slight interval improve ment. There is no pleural effusion or pneumothorax. The cardiomediastinal silhouette is normal. IMPRESSION: 1. Persistent but improved opacities of the right mid and lower lung zones, consistent with resolving pneumonia. Reviewed, dictated and finalized at location A. IMPRESSION: 1. Persistent but improved opacities of the right mid and lower lung zones, con sistent with resolving pneumonia.
--- NOTE | ~2020-08-06 | CT_ITS ---
EXAMINATION: CTA chest PE protocol DATE: 08/06/2020 12:06 INDICATION: Hypoxia TECHNIQUE: Computed tomography angiography (CTA) of the chest was performed with 100 mL Omnipaque-350 intravenous contrast timed to evaluate the pulmonary arteries. Coronal maximum intensity projection 3D-reconstructions were created by the technologist. Automated exposure control and iterative reconst ruction technique were employed. Exam dose: 1020.98 mGy-cm total exam DLP. COMPARISON: 06/23/2020 CT lung screening portable AP chest FINDINGS: There is diagnostic contrast enhancement of the pulmonary arteries and no evidence of pulmo nary embolism. There is thoracic aortic and great vessel and extensive coronary artery calcification. No thoracic ao rtic aneurysm. There are hilar and mediastinal calcified nodes and numerous hepatic and splenic calcified granulomas , consistent with old granulomatous disease. No hilar or mediastinal mass lesion or lymphadenopathy. Trace pericardial fluid. No pleural effusion. There are patchy right upper, middle and lower lobe infiltrates and minimal atelectasis at the left l joi base. IMPRESSION: Patchy right upper, middle and lower lobe infiltrates suggesting pneumonia Minimal atelectasis at the left lower lob No evidence of pulmonary embolism Old granulomatous disease Reviewed, dictated and finalized at Location A. Reviewed, dictated and finalized at location A. IMPRESSION: Patchy right upper, middle and lower lobe infiltrates suggesting p neumonia Minimal atelectasis at the left lower lob No evidence of pulmonary embolism Old granulomatous disease
--- NOTE | ~2020-08-06 | XR_ITS ---
XR chest 1V portable DATE: 08/06/2020 11:01 INDICATION: Shortness of breath TECHNIQUE: Portable AP chest on 08/06/2020 1105 hours COMPARISON: 06/23/2020 CT lung screening 05/11/2020 portable AP chest FINDINGS: Limited single portable rotated chest radiograph. There are patchy infiltrates in the right mid and both lower lung zones, right greater than left. No pleural effusion or pneumothorax is evident. Calcified subcarinal nodes consistent with old granuloma tous disease. Heart size appears within normal range. Aortic calcification. Diffuse osteopenia. IMPRESSION: Patchy right mid and bilateral lower lung infiltrates, suggesting pneumonia or aspiration pneumonitis Reviewed, dictated and finalized at location A. IMPRESSION: Patchy right mid and bilateral lower lung infiltrates, suggesting p neumonia or aspiration pneumonitis
--- NOTE | 2020-08-06 10:41 | ECG_ITS ---
Measurements Intervals Swiss Rate: 104 P: -39 IA: 124 QRS: 60 QRSD: 94 T: 61 QT: 309 QTc: 407 Interpretive Statements SINUS TACHYCARDIA POSSIBLE LEFT ATRIAL ENLARGEMENT ST ELEVATIONN IN ANT/INF LEADS- PROBABLY EARLY REPOLARIZATION BASELINE ARTIFACT- I, II, III, AVR, AVL, AVF, V2-V6 BORDERLINE ECG Electronically Signed On 08-06-2020 19:27:07 CDT by Marlon Andrade D.O.
[2020-08-06 10:59] LABS: Basophils Absolute Auto 0.1 K/mm3 (0.0-0.1); Basophils Percent Auto 0.3 % (0.2-1.2); Eosinophils Percent Auto 0.2 % (0-4.4); Hematocrit 45.1 % (42.0-52.0); Immature Granulocyte Absolute 0.12 K/mm3 (0.00-0.031); Immature Granulocyte Percent A 0.6 % (0-0.5); Lymphocytes Absolute Auto 1.03 K/mm3 (0.9-3.2); Mean Corpuscular Hemoglobin 27.7 pg (26-34); Mean Corpuscular Volume 89.1 fl (80-100); Mean Platelet Volume 10.1 fl (7.4-10.4); Monocytes Absolute Auto 1.7 K/mm3 (0.1-0.6); Monocytes Percent Auto 8.2 % (2.6-8.5); Neutrophils Absolute Auto 17.6 K/mm3 (1.3-6.7); Neutrophils Percent Auto 85.7 % (45.5-73.1); Platelet Count Result 262 k/mm3 (150-375); Red Blood Count 5.06 M/mm3 (4.6-6.20); Red Cell Distribution Width 14.5 % (11.5-14.5); White Blood Count 20.6 K/mm3 (4.5-10.0)
[2020-08-06 11:09] LABS: Anion Gap 9 mmol/L (8-16); Blood Urea Nitrogen 24 mg/dL (9-20); Calcium 10.1 mg/dL (8.4-10.2); Carbon Dioxide 31 mmol/L (22-30); Chloride 98 mmol/L (98-107); Estimated CRCL calculation 77 ml/min; Estimated Glomerular Filt Rate > 60; Glucose 244 mg/dL (75-110); Potassium 4.7 mmol/L (3.4-5.0); Sodium 138 mmol/L (137-145)
[2020-08-06 11:10] LABS: Lactic Acid Reflex 3.1 mmol/L (0.7-2.1)
[2020-08-06 11:14] LABS: Ovalocytes 1+ (NORMAL); Platelet Estimate Adequate (Adequate)
--- NOTE | 2020-08-06 11:47 | ED.GENADULT ---
HPI - General Adult General Chief complaint: Shortness of Breath/Dyspnea Stated complaint: sob Time Seen by Provider: 08/06/20 10:44 Source: patient Mode of arrival: ambulatory Limitations: no limitations History of Present Illness HPI narrative: Patient presents for evaluation of shortness of breath. States he woke from sleep with o'clock this morning to use a restroom. Upon getting back to bed he checked his saturations on room air with a reading in the 70s. He states that his heart rate was in the 110s to 120s at that time. He has underlying COPD and wears 4 L of oxygen per nasal cannula at home, always during the day and sometimes at night. Denies any fever, chills, chest pain, cough, left leg swelling. He has an underlying hx of DM, HTN, hyperlipidemia, COPD, and anxiety. He reports some pain in right calf, which is not new. Initially he denied history of DVT/PE but later states that he had a clot in RLE. He states he has never been anticoagulated. No recent sick contacts. No hx of COVID. He has not received COVID vaccination. Related Data Home Medications Medication Instructions Recorded Confirmed amlodipine 10 mg PO DAILY 05/11/20 06/14/20 atorvastatin 20 mg DAILY 05/11/20 06/14/20 fluticasone propion-salmeterol 2 inh INHALATION DAILY 05/11/20 06/14/20 [Advair Diskus] furosemide 20 mg DAILY 05/11/20 06/14/20 ipratropium-albuterol 3 ml INHALATION Q4H PRN 05/11/20 06/14/20 metformin 1,000 mg PO BID 05/11/20 06/14/20 ramipril 20 mg PO DAILY 05/11/20 06/14/20 aspirin 81 mg PO EVERY OTHER DAY 08/06/20 Allergies Allergy/AdvReac Type Severity Reaction Status Date / Time naproxen Allergy Unknown Hives / Verified 08/06/20 10:40 Red Face Review of Systems Review of Systems: Narrative: CONSTITUTIONAL: Denies fever, chills, or sweats. EYES: Denies visual changes, redness, or discharge. ENT: Denies rhinorrhea, congestion, sore throat, or otalgia. CARDIOVASCULAR: Denies chest pain, palpitations, or edema. RESPIRATORY: Report SOB. Denies cough. GASTROINTESTINAL: Denies abdominal pain, nausea, vomiting, or diarrhea. GENITOURINARY: Denies dysuria or hematuria. SKIN: Denies rash or itching. MUSCULOSKELETAL: Denies back pain, joint pain, or myalgia. NEUROLOGIC: Denies headache, numbness, dizziness, or weakness. PSYCHIATRIC: Denies anxiety or depression. [facility] Past Medical History Medical History Anxiety Chronic obstructive pulmonary disease Chronic respiratory failure with hypoxia, on home oxygen therapy Patient wears 2 L nasal cannula at nighttime. Diabetic peripheral neuropathy Former smoker Patient smoked anywhere from 0.5 to 2 packs of cigarettes per day. Hyperlipidemia Hypertension Type 2 diabetes mellitus Surgical History Surgical History History of abdominal surgery As an infant. Patient is a poor historian regarding this surgery but does have a midline abdominal scar. History of colonoscopy with polypectomy Family History Family History Father Acute myocardial infarction, Onset Age: 50 Social History Social History Social History: The patient is and lives with his in [place]. He retired from [employer]. Smoked 0.5 to 2 packs of cigarettes per day for many years and quit about 5 years ago. 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 No illicit substance use. He designates his Arlene as his surrogate decision maker and he wishes to be a full code. Smoking packs per day: 1 Smoking cigarettes per day: 20.0 Smoking status: Former smoker Tobacco type: cigarettes Second hand tobacco smoke exposure: No Alcohol intake: former Substance use: former Gende
[2020-08-06 12:00] LABS: Alanine Aminotransferase 18 U/L (4-50); Albumin Level 4.6 g/dL (3.5-5.1); Alkaline Phosphatase 69 U/L (38-126); Aspartate Amino Transferase 32 U/L (17-59); Bilirubin,Total 0.6 mg/dL (0.2-1.3)
[2020-08-06 12:05] LABS: INR 0.9; Prothrombin Time 12.8 Seconds (11.1-14.7)
[2020-08-06] MEDS: AMPICILLIN SULB 3 GM/NS 100 ML 3 GM/100 ML VIAL IVPB (12:07)
[2020-08-06] MEDS: SODIUM CHLORIDE 0.9% IV 1,000 ML 999 ML IV CONT ×2 (12:07→13:20)
[2020-08-06 12:13] LABS: NT Pro B Type Natriuretic Pept 425 pg/mL (5-100); Troponin I < 0.012 ng/mL (0.000-0.034)
[2020-08-06 13:34] LABS: Lactic Acid Reflex 1.7 mmol/L (0.7-2.1)
[2020-08-06 13:47] LABS: Troponin I < 0.012 ng/mL (0.000-0.034)
[2020-08-06 13:56] LABS: Reflex Lactic Acid Yes or No Add Lactic
[2020-08-06 14:06] LABS: Alveolar/Arterial O2 Gradient 118.5 mmHg; Base Excess ABG 3.4 mEq/l (+/-2.0); Device NASAL CANNULA; Fractional Inspired Oxygen 36 %; HCO3 ABG 29.9 mEq/l (22.0-26.0); Oxygen Content ABG 18.6 %vol (16.0-22.0); Oxygen Saturation ABG 94.8 % (95.0-100.0); Oxyhemoglobin 94.4 % THb (90.0-100.0); PCO2 ABG 53.1 mmHg (35.0-45.0); PO2 ABG 76.6 mmHg (80.0-100.0); PO2 FiO2 Ratio Arterial Blood 2.13 %; Site Drawn LEFT BRACHIAL; pH ABG 7.368 (7.350-7.450)
--- NOTE | 2020-08-06 16:11 | ADMGEN ---
This patient, Fadi Greenwood, was admitted to IMU Room 211-01. Patient/family oriented to hospital policies and general routines including ID bracelet, bed and alarms, visiting hours, pain management, procedures, bathroom and other care routines, personal items, smoking policy, room service/diet, and visiting hours. Information on how to activate the Rapid Response Team has been discussed. Patient/Family are encouraged to report perceived risks to care and to ask questions if they do not understand what they are told or what they should do.
--- NOTE | 2020-08-06 16:20 | PM.IMHP ---
H&P: HPI History of Present Illness Date/Time: 08/06/20 18:45 Chief Complaint: Shortness of breath. Narrative: This is a 64-year-old male, former smoker, with COPD, chronic respiratory failure on oxygen, type 2 diabetes mellitus, hypertension, and hyperlipidemia who presented to the emergency department earlier today from home with complaints of shortness of breath. He was in his usual state of health when he went to bed last night and when he got out of bed to use the bathroom early this morning he developed sudden onset of shortness of breath when walking back to his bedroom. He does remove his oxygen when he ambulates to the bathroom but he never has shortness of breath like he had today. His rescue inhaler and a nebulizer provided him with no relief and when a similar instance occurred while once again getting up to go to the bathroom, he decided to come in for evaluation. Chest x-ray and chest CTA showed findings of patchy infiltrates suspicious for pneumonia or even aspiration pneumonitis. There was no evidence of pulmonary embolism. With further questioning he denies dysphagia and concerns for aspiration. No recent episodes of emesis. No fever, chills, sweats, cold or flu symptoms, chest pain, pleuritic pain, palpitations, orthopnea, PND, or significant lower extremity edema. No diarrhea. He denies sick contacts and exposure to those positive for COVID-19. He has not been vaccinated for COVID-19 yet. At the time my evaluation he tells me he feels great and he has no complaints. Review of Systems Review of Systems: Narrative: Twelve systems were reviewed with pertinent positives and negatives as per HPI. He denies lightheadedness and dizziness. No syncope or near syncope. He believes his diabetes is fairly well controlled. No blurry vision, polydipsia, or polyuria. Weight has remained stable. He denies sleep apnea however it has been documented in his chart and he does not use a CPAP. The patient has claudication in his right leg when walking on his treadmill and saw a vascular surgeon a couple of years ago and was told he has ?minimal blockage in of vessel? and he has not been re-evaluated since. Except as documented, all other systems were reviewed and are negative. [facility] Past Medical History Medical History (Updated 08/06/20 @ 16:34 by Ciara Stoddard PA-C) Anxiety Chronic obstructive pulmonary disease Chronic respiratory failure with hypoxia, on home oxygen therapy Patient wears 4 L nasal cannula during the day. Diabetic peripheral neuropathy Former smoker Patient smoked anywhere from 0.5 to 2 packs of cigarettes per day. Hyperlipidemia Hypertension Type 2 diabetes mellitus Hemoglobin A1c was 6.8% on 05/14/2020. Surgical History Surgical History History of abdominal surgery As an . Patient is a poor historian regarding this surgery but does have a midline abdominal scar. History of colonoscopy with polypectomy Family History Family History Father Acute myocardial infarction, Onset Age: 50 Social History Social History (Updated 08/06/20 @ 16:30 by Ciara Stoddard PA-C) Social History: The patient is and lives with his in [place]. Retired from [employer]. He smoked 0.5 to 2 packs of cigarettes per day for many years and quit about 5 years ago. 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 No illicit substance use. He designates his Arlene as his surrogate decision maker and he wishes to be a full code. Meds Home Medications and Allergies Home Medications Medication Instructions Recorded Confirmed Type amlodipine 10 mg PO DAILY 05/11/20 08/06/20 History atorvastatin 20 mg DAILY 05/11/20 08/06/20 History fluticasone propion-salmeterol 2 inh INHALATION DAILY 05/11/20 08/06/20 History
[2020-08-06 16:24] LABS: Glucose Point of Care 116 (65-105)
[2020-08-06 17:29] LABS: Troponin I < 0.012 ng/mL (0.000-0.034)
[2020-08-06 17:36] LABS: Hemoglobin A1C 7.3 % (<5.7)
[2020-08-06] MEDS: SODIUM CHLORIDE 0.9% IV 1,000 ML 75 ML IV CONT (17:41)
[2020-08-06] MEDS: IPRATROPIUM BR 0.02% INH SOLN 0.5 MG/2.5 ML VIAL INHALATION (20:47)
[2020-08-06] MEDS: ALBUTEROL SULFATE NEB 2.5 MG/0.5 ML INH 5 MG INHALATION (20:47)
[2020-08-06 21:35] LABS: Glucose Point of Care 102 (65-105)
[2020-08-06] MEDS: SODIUM CHLORIDE 0.9% IV 1,000 ML 500 ML IV CONT (23:46)
[2020-08-07] VITALS (24 sets, daily range): BP systolic 85–158; BP diastolic 51–73; PULSE 82–104; RESP 12–22; TEMP 35.6–36.3; O2SAT 91–97
[2020-08-07] MEDS: IPRATROPIUM BR 0.02% INH SOLN 0.5 MG/2.5 ML VIAL INHALATION ×4 (02:14→20:39)
[2020-08-07] MEDS: ALBUTEROL SULFATE NEB 2.5 MG/0.5 ML INH 5 MG INHALATION ×4 (02:14→20:39)
[2020-08-07 04:59] LABS: Hematocrit 38.8 % (42.0-52.0); Hemoglobin 11.7 g/dL (14.0-18.0); Mean Corpuscular HGB Conc 30.2 g/dl (32-36); Mean Corpuscular Hemoglobin 27.7 pg (26-34); Mean Corpuscular Volume 91.7 fl (80-100); Platelet Count Result 204 k/mm3 (150-375); Red Blood Count 4.23 M/mm3 (4.6-6.20); Red Cell Distribution Width 14.8 % (11.5-14.5); White Blood Count 10.4 K/mm3 (4.5-10.0)
[2020-08-07 05:38] LABS: Anion Gap 2 mmol/L (8-16); Blood Urea Nitrogen 16 mg/dL (9-20); Calcium 8.6 mg/dL (8.4-10.2); Carbon Dioxide 35 mmol/L (22-30); Chloride 104 mmol/L (98-107); Estimated CRCL calculation 95 ml/min; Estimated Glomerular Filt Rate > 60; Glucose 133 mg/dL (75-110); Magnesium 1.5 mg/dL (1.6-2.3); Potassium 3.8 mmol/L (3.4-5.0); Sodium 141 mmol/L (137-145)
[2020-08-07] MEDS: FLUTICASONE/SALMETEROL 115-21 MCG (*SP) INHALER 2 PUFF INHALATION ×2 (08:00→20:42)
[2020-08-07 08:06] LABS: Glucose Point of Care 136 (65-105)
[2020-08-07] MEDS: FLUTICASONE/SALMETEROL 115-21 MCG INHALER 1 PUFF 2 PUFF INHALATION (08:09)
[2020-08-07] MEDS: ENOXAPARIN 40 MG/0.4 ML SYRINGE SUB-Q (08:26)
[2020-08-07] MEDS: ASPIRIN 81 MG ENTERIC TABLET PO (08:26)
[2020-08-07] MEDS: ATORVASTATIN 20 MG TABLET BY MOUTH (08:26)
[2020-08-07] MEDS: MAGNESIUM SULF 2 GM/WATER 50ML 2 GM/50 ML BAG IVPB (10:20)
[2020-08-07 11:51] LABS: Glucose Point of Care 182 (65-105)
[2020-08-07 13:55] LABS: SARS-CoV-2 RNA PCR Negative
--- NOTE | 2020-08-07 17:31 | PM.IMPN ---
Progress Note: A&P Assessment and Plan (1) Sepsis: Qualifiers: Sepsis acute organ dysfunction status: without acute organ dysfunction Sepsis type: sepsis due to unspecified organism Qualified Code(s): A41.9 - Sepsis, unspecified organism Code(s): A41.9 - Sepsis, unspecified organism Status: Acute Assessment and Plan: Upon arrival patient was tachycardia and tachypnic with elevated white counts, possibly source of infection pneumonia, however lactic acid is normal, continue to monitor 08/07/20 17:31 patient is 64-year-old male with history of COPD and chronic respiratory failure on home oxygen 4 L per nasal cannula apparently patient woke up to go to the bathroom was not wearing his oxygen and check pulse ox and was read 70% at room air patient presented emergency depart for further evaluation, patient had a CTA of the chest was negative for PE, showed Patchy right upper, middle and lower lobe infiltrates suggesting pneumonia Minimal atelectasis at the left lower lob concerning for aspiration pneumonia patient is being treated with the Unasyn and azithromycin, there is also concern the patient may have COVID-19 was isolated and tested but it is negative, currently patient states is feeling much better denies any cough shortness of breath fever or chills, will continue present management will have a PT OT evaluate the further recommendation to follow. (2) Community acquired pneumonia: Qualifiers: Laterality: unspecified laterality Qualified Code(s): J18.9 - Pneumonia, unspecified organism Code(s): J18.9 - Pneumonia, unspecified organism Status: Acute Assessment and Plan: Plan is above (3) Chronic respiratory failure with hypoxia, on home oxygen therapy: Code(s): J96.11 - Chronic respiratory failure with hypoxia; Z99.81 - Dependence on supplemental oxygen Status: Chronic Assessment and Plan: will continue home regimen and monitor (4) Chronic obstructive pulmonary disease: Code(s): J44.9 - Chronic obstructive pulmonary disease, unspecified Status: Chronic Assessment and Plan: Patient with history of chronic COPD will continue home regimen and monitor (5) Type 2 diabetes mellitus: Code(s): E11.9 - Type 2 diabetes mellitus without complications Status: Chronic Assessment and Plan: Will continue home regimen and monitor with sliding scale (6) Person under investigation for COVID-19: Code(s): Z20.822 - Contact with and (suspected) exposure to COVID-19 Status: Acute Additional Plan The patient presents today with pretty sudden onset shortness of breath while ambulating from the bathroom although he was not wearing his oxygen at that time. Imaging today shows findings of pneumonia, possible aspiration pneumonitis according to the radiology read however less likely by history. Technically he meets sepsis criteria with elevated lactic acid level, leukocytosis, and hypotension. He received IV fluid boluses with normalization of his lactic acid level. Blood cultures have been obtained and are pending. Blood pressures initially improved with IV fluids but reportedly dropped again however I am wondering if he may have subclavian steal given his exam findings and I will ask the nurses to check blood pressures in both arms to evaluate for possible discrepancy. He has been started on antibiotics for community-acquired pneumonia. At this time he will remain in isolation pending SARS-CoV-2 by PCR. He has very mild expiratory wheezing which I think is probably pretty common for him and he does not appear to have an acute COPD exacerbation at this time thus will hold on steroids for now. Initiate sliding scale insulin, Accu-Cheks, and hypoglycemic protocol. Check hemoglobin A1c. His home medications will be reviewed and resumed as appropriate. Subjective Date/time seen: 08/07/20 17:31 patient is 64-year-old male with history of CO
[2020-08-07 20:20] LABS: Glucose Point of Care 175 (65-105)
[2020-08-08] VITALS (23 sets, daily range): BP systolic 132–141; BP diastolic 55–74; PULSE 72–114; RESP 14–22; TEMP 35.9–36.4; O2SAT 92–99
[2020-08-08] MEDS: IPRATROPIUM BR 0.02% INH SOLN 0.5 MG/2.5 ML VIAL INHALATION ×4 (02:22→22:04)
[2020-08-08] MEDS: ALBUTEROL SULFATE NEB 2.5 MG/0.5 ML INH 5 MG INHALATION ×4 (02:22→22:03)
[2020-08-08 04:17] LABS: Glucose Point of Care 109 (65-105)
[2020-08-08 05:10] LABS: Basophils Percent Auto 0.5 % (0.2-1.2); Eosinophils Absolute Auto 0.2 K/mm3 (0-0.3); Eosinophils Percent Auto 2.2 % (0-4.4); Hematocrit 38.3 % (42.0-52.0); Hemoglobin 11.5 g/dL (14.0-18.0); Immature Granulocyte Absolute 0.04 K/mm3 (0.00-0.031); Immature Granulocyte Percent A 0.5 % (0-0.5); Lymphocytes Absolute Auto 1.31 K/mm3 (0.9-3.2); Lymphocytes Percent Auto 16.3 % (18.3-44.2); Mean Corpuscular Hemoglobin 27.6 pg (26-34); Mean Corpuscular Volume 91.8 fl (80-100); Monocytes Absolute Auto 0.9 K/mm3 (0.1-0.6); Monocytes Percent Auto 10.9 % (2.6-8.5); Neutrophils Absolute Auto 5.6 K/mm3 (1.3-6.7); Neutrophils Percent Auto 69.6 % (45.5-73.1); Platelet Count Result 207 k/mm3 (150-375); Red Blood Count 4.17 M/mm3 (4.6-6.20); Red Cell Distribution Width 14.8 % (11.5-14.5); White Blood Count 8.1 K/mm3 (4.5-10.0)
[2020-08-08 05:27] LABS: Alanine Aminotransferase 13 U/L (4-50); Albumin Level 3.8 g/dL (3.5-5.1); Alkaline Phosphatase 54 U/L (38-126); Anion Gap 2 mmol/L (8-16); Aspartate Amino Transferase 25 U/L (17-59); Bilirubin,Total 0.3 mg/dL (0.2-1.3); Blood Urea Nitrogen 11 mg/dL (9-20); CRP 4.8 mg/dL (<1.0); Carbon Dioxide 36 mmol/L (22-30); Chloride 103 mmol/L (98-107); Estimated CRCL calculation 120 ml/min; Estimated Glomerular Filt Rate > 60; Glucose 129 mg/dL (75-110); Magnesium 1.6 mg/dL (1.6-2.3); Potassium 4.2 mmol/L (3.4-5.0); Sodium 141 mmol/L (137-145)
[2020-08-08] MEDS: FLUTICASONE/SALMETEROL 115-21 MCG (*SP) INHALER 2 PUFF INHALATION ×2 (07:56→22:04)
[2020-08-08 08:09] LABS: Glucose Point of Care 114 (65-105)
[2020-08-08] MEDS: ENOXAPARIN 40 MG/0.4 ML SYRINGE SUB-Q (08:13)
[2020-08-08] MEDS: ATORVASTATIN 20 MG TABLET BY MOUTH (08:14)
[2020-08-08] MEDS: MAGNESIUM OXIDE 400 MG TABLET PO (08:14)
[2020-08-08 12:03] LABS: Glucose Point of Care 169 (65-105)
--- NOTE | 2020-08-08 15:04 | PM.IMPN ---
Progress Note: A&P Assessment and Plan (1) Sepsis: Qualifiers: Sepsis acute organ dysfunction status: without acute organ dysfunction Sepsis type: sepsis due to unspecified organism Qualified Code(s): A41.9 - Sepsis, unspecified organism Code(s): A41.9 - Sepsis, unspecified organism Status: Acute Assessment and Plan: Upon arrival patient was tachycardia and tachypnic with elevated white counts, possibly source of infection pneumonia, however lactic acid is normal, continue to monitor 08/08/20 15:04 patient is 64-year-old male with history of COPD and chronic respiratory failure on home oxygen 4 L per nasal cannula apparently patient woke up to go to the bathroom was not wearing his oxygen and check pulse ox and was read 70% at room air patient presented emergency depart for further evaluation, patient had a CTA of the chest was negative for PE, showed Patchy right upper, middle and lower lobe infiltrates suggesting pneumonia Minimal atelectasis at the left lower lob concerning for aspiration pneumonia patient is being treated with the Unasyn and azithromycin, there is also concern the patient may have COVID-19 was isolated and tested but it is negative, currently patient states is feeling much better denies any cough shortness of breath fever or chills, will continue present management will have a PT OT evaluate the further recommendation to follow. 08/08 patient still complains of shortness of breath and cough and requiring oxygen, no fever or chills, will continue present management with azithromycin and Rocephin, sputum and blood culture so far no growth, repeat chest x-ray tomorrow and reassess and further recommendation to (2) Community acquired pneumonia: Qualifiers: Laterality: unspecified laterality Qualified Code(s): J18.9 - Pneumonia, unspecified organism Code(s): J18.9 - Pneumonia, unspecified organism Status: Acute Assessment and Plan: Plan is above (3) Chronic respiratory failure with hypoxia, on home oxygen therapy: Code(s): J96.11 - Chronic respiratory failure with hypoxia; Z99.81 - Dependence on supplemental oxygen Status: Chronic Assessment and Plan: will continue home regimen and monitor (4) Chronic obstructive pulmonary disease: Code(s): J44.9 - Chronic obstructive pulmonary disease, unspecified Status: Chronic Assessment and Plan: Patient with history of chronic COPD will continue home regimen and monitor (5) Type 2 diabetes mellitus: Code(s): E11.9 - Type 2 diabetes mellitus without complications Status: Chronic Assessment and Plan: Will continue home regimen and monitor with sliding scale (6) Person under investigation for COVID-19: Code(s): Z20.822 - Contact with and (suspected) exposure to COVID-19 Status: Acute Additional Plan The patient presents today with pretty sudden onset shortness of breath while ambulating from the bathroom although he was not wearing his oxygen at that time. Imaging today shows findings of pneumonia, possible aspiration pneumonitis according to the radiology read however less likely by history. Technically he meets sepsis criteria with elevated lactic acid level, leukocytosis, and hypotension. He received IV fluid boluses with normalization of his lactic acid level. Blood cultures have been obtained and are pending. Blood pressures initially improved with IV fluids but reportedly dropped again however I am wondering if he may have subclavian steal given his exam findings and I will ask the nurses to check blood pressures in both arms to evaluate for possible discrepancy. He has been started on antibiotics for community-acquired pneumonia. At this time he will remain in isolation pending SARS-CoV-2 by PCR. He has very mild expiratory wheezing which I think is probably pretty common for him and he does not appear to have an acute COPD exacerbation at this time thus w
[2020-08-08 16:12] LABS: Glucose Point of Care 105 (65-105)
[2020-08-08 19:55] LABS: Glucose Point of Care 133 (65-105)
[2020-08-09] VITALS (26 sets, daily range): BP systolic 131–146; BP diastolic 56–74; PULSE 80–108; RESP 16–22; TEMP 36.2–36.5; O2SAT 90–98
[2020-08-09] MEDS: ALBUTEROL SULFATE NEB 2.5 MG/0.5 ML INH 5 MG INHALATION ×4 (03:05→20:16)
[2020-08-09] MEDS: IPRATROPIUM BR 0.02% INH SOLN 0.5 MG/2.5 ML VIAL INHALATION ×4 (03:05→20:17)
[2020-08-09 05:00] LABS: Basophils Percent Auto 0.4 % (0.2-1.2); Eosinophils Absolute Auto 0.3 K/mm3 (0-0.3); Eosinophils Percent Auto 3.1 % (0-4.4); Hematocrit 37.6 % (42.0-52.0); Hemoglobin 11.7 g/dL (14.0-18.0); Immature Granulocyte Absolute 0.04 K/mm3 (0.00-0.031); Immature Granulocyte Percent A 0.4 % (0-0.5); Lymphocytes Absolute Auto 1.34 K/mm3 (0.9-3.2); Lymphocytes Percent Auto 14.7 % (18.3-44.2); Mean Corpuscular HGB Conc 31.1 g/dl (32-36); Mean Corpuscular Hemoglobin 27.5 pg (26-34); Mean Corpuscular Volume 88.5 fl (80-100); Mean Platelet Volume 9.8 fl (7.4-10.4); Monocytes Absolute Auto 1.1 K/mm3 (0.1-0.6); Monocytes Percent Auto 11.9 % (2.6-8.5); Neutrophils Absolute Auto 6.4 K/mm3 (1.3-6.7); Neutrophils Percent Auto 69.5 % (45.5-73.1); Platelet Count Result 219 k/mm3 (150-375); Red Blood Count 4.25 M/mm3 (4.6-6.20); Red Cell Distribution Width 14.6 % (11.5-14.5); White Blood Count 9.1 K/mm3 (4.5-10.0)
[2020-08-09 05:17] LABS: Alanine Aminotransferase 15 U/L (4-50); Albumin Level 3.8 g/dL (3.5-5.1); Alkaline Phosphatase 60 U/L (38-126); Anion Gap 1 mmol/L (8-16); Aspartate Amino Transferase 23 U/L (17-59); Bilirubin,Total 0.4 mg/dL (0.2-1.3); Blood Urea Nitrogen 9 mg/dL (9-20); Calcium 9.1 mg/dL (8.4-10.2); Carbon Dioxide 36 mmol/L (22-30); Chloride 102 mmol/L (98-107); Estimated CRCL calculation 106 ml/min; Estimated Glomerular Filt Rate > 60; Glucose 119 mg/dL (75-110); Potassium 4.4 mmol/L (3.4-5.0); Sodium 139 mmol/L (137-145)
[2020-08-09 07:51] LABS: Glucose Point of Care 115 (65-105)
[2020-08-09] MEDS: FLUTICASONE/SALMETEROL 115-21 MCG (*SP) INHALER 2 PUFF INHALATION ×2 (08:20→20:16)
[2020-08-09] MEDS: ATORVASTATIN 20 MG TABLET BY MOUTH (08:24)
[2020-08-09] MEDS: ASPIRIN 81 MG ENTERIC TABLET PO (08:24)
[2020-08-09] MEDS: ENOXAPARIN 40 MG/0.4 ML SYRINGE SUB-Q (08:24)
[2020-08-09] MEDS: MAGNESIUM OXIDE 400 MG TABLET PO (08:24)
--- NOTE | 2020-08-09 11:58 | PM.IMPN ---
Progress Note: A&P Assessment and Plan (1) Sepsis: Qualifiers: Sepsis acute organ dysfunction status: without acute organ dysfunction Sepsis type: sepsis due to unspecified organism Qualified Code(s): A41.9 - Sepsis, unspecified organism Code(s): A41.9 - Sepsis, unspecified organism Status: Acute (2) Community acquired pneumonia: Qualifiers: Laterality: unspecified laterality Qualified Code(s): J18.9 - Pneumonia, unspecified organism Code(s): J18.9 - Pneumonia, unspecified organism Status: Acute (3) Chronic respiratory failure with hypoxia, on home oxygen therapy: Code(s): J96.11 - Chronic respiratory failure with hypoxia; Z99.81 - Dependence on supplemental oxygen Status: Chronic (4) Chronic obstructive pulmonary disease: Code(s): J44.9 - Chronic obstructive pulmonary disease, unspecified Status: Chronic (5) Type 2 diabetes mellitus: Code(s): E11.9 - Type 2 diabetes mellitus without complications Status: Chronic (6) Person under investigation for COVID-19: Code(s): Z20.822 - Contact with and (suspected) exposure to COVID-19 Status: Acute Additional Plan 07/07/20 The patient presents today with pretty sudden onset shortness of breath while ambulating from the bathroom although he was not wearing his oxygen at that time. Imaging today shows findings of pneumonia, possible aspiration pneumonitis according to the radiology read however less likely by history. Technically he meets sepsis criteria with elevated lactic acid level, leukocytosis, and hypotension. He received IV fluid boluses with normalization of his lactic acid level. Blood cultures have been obtained and are pending. Blood pressures initially improved with IV fluids but reportedly dropped again however I am wondering if he may have subclavian steal given his exam findings and I will ask the nurses to check blood pressures in both arms to evaluate for possible discrepancy. He has been started on antibiotics for community-acquired pneumonia. At this time he will remain in isolation pending SARS-CoV-2 by PCR. He has very mild expiratory wheezing which I think is probably pretty common for him and he does not appear to have an acute COPD exacerbation at this time thus will hold on steroids for now. Initiate sliding scale insulin, Accu-Cheks, and hypoglycemic protocol. Check hemoglobin A1c. His home medications will be reviewed and resumed as appropriate. 08/07/20 15:04 patient is 64-year-old male with history of COPD and chronic respiratory failure on home oxygen 4 L per nasal cannula apparently patient woke up to go to the bathroom was not wearing his oxygen and check pulse ox and was read 70% at room air patient presented emergency depart for further evaluation, patient had a CTA of the chest was negative for PE, showed Patchy right upper, middle and lower lobe infiltrates suggesting pneumonia Minimal atelectasis at the left lower lob concerning for aspiration pneumonia patient is being treated with the Unasyn and azithromycin, there is also concern the patient may have COVID-19 was isolated and tested but it is negative, currently patient states is feeling much better denies any cough shortness of breath fever or chills, will continue present management will have a PT OT evaluate the further recommendation to follow. 08/08 patient still complains of shortness of breath and cough and requiring oxygen, no fever or chills, will continue present management with azithromycin and Rocephin, sputum and blood culture so far no growth, repeat chest x-ray tomorrow and reassess and further recommendation to continue to monitor 08/09/20 patient noted to be hypoxic without awareness. He is placed back on 2 L nasal cannula. Baseline is 4 L only at night. I have ordered a repeat chest x-ray to ensure that no new findings are present. Physical exam findings are without wheezing rhonchi or rales. cont cu
[2020-08-09 12:20] LABS: Glucose Point of Care 116 (65-105)
[2020-08-09 16:09] LABS: Glucose Point of Care 110 (65-105)
[2020-08-09 19:32] LABS: Glucose Point of Care 225 (65-105)
[2020-08-09 23:58] LABS: Pneumococcal Antigen Urine Not Detected (Not Detected)
[2020-08-10] VITALS (21 sets, daily range): BP systolic 126–138; BP diastolic 67–71; PULSE 77–97; RESP 18–22; TEMP 35.3–36.3; O2SAT 87–96
[2020-08-10] MEDS: ALBUTEROL SULFATE NEB 2.5 MG/0.5 ML INH 5 MG INHALATION ×3 (01:59→13:43)
[2020-08-10] MEDS: IPRATROPIUM BR 0.02% INH SOLN 0.5 MG/2.5 ML VIAL INHALATION ×3 (01:59→13:43)
[2020-08-10 04:23] LABS: Legionella pneumophila Ag Ur Not Detected (Not Detected)
[2020-08-10 05:19] LABS: Basophils Absolute Auto 0.1 K/mm3 (0.0-0.1); Basophils Percent Auto 0.6 % (0.2-1.2); Eosinophils Absolute Auto 0.2 K/mm3 (0-0.3); Eosinophils Percent Auto 2.8 % (0-4.4); Hematocrit 38.6 % (42.0-52.0); Hemoglobin 11.9 g/dL (14.0-18.0); Immature Granulocyte Absolute 0.03 K/mm3 (0.00-0.031); Immature Granulocyte Percent A 0.3 % (0-0.5); Lymphocytes Absolute Auto 1.58 K/mm3 (0.9-3.2); Lymphocytes Percent Auto 18.4 % (18.3-44.2); Mean Corpuscular HGB Conc 30.8 g/dl (32-36); Mean Corpuscular Hemoglobin 27.4 pg (26-34); Mean Corpuscular Volume 88.7 fl (80-100); Mean Platelet Volume 10.1 fl (7.4-10.4); Monocytes Absolute Auto 1.1 K/mm3 (0.1-0.6); Monocytes Percent Auto 12.3 % (2.6-8.5); Neutrophils Absolute Auto 5.7 K/mm3 (1.3-6.7); Neutrophils Percent Auto 65.6 % (45.5-73.1); Platelet Count Result 250 k/mm3 (150-375); Red Blood Count 4.35 M/mm3 (4.6-6.20); Red Cell Distribution Width 14.5 % (11.5-14.5); White Blood Count 8.6 K/mm3 (4.5-10.0)
[2020-08-10 05:41] LABS: Alanine Aminotransferase 16 U/L (4-50); Albumin Level 3.9 g/dL (3.5-5.1); Alkaline Phosphatase 66 U/L (38-126); Anion Gap 2 mmol/L (8-16); Aspartate Amino Transferase 23 U/L (17-59); Bilirubin,Total 0.4 mg/dL (0.2-1.3); Blood Urea Nitrogen 11 mg/dL (9-20); Calcium 9.4 mg/dL (8.4-10.2); Carbon Dioxide 37 mmol/L (22-30); Chloride 101 mmol/L (98-107); Estimated CRCL calculation 107 ml/min; Estimated Glomerular Filt Rate > 60; Glucose 109 mg/dL (75-110); Magnesium 1.7 mg/dL (1.6-2.3); Potassium 4.4 mmol/L (3.4-5.0); Sodium 140 mmol/L (137-145)
[2020-08-10 07:48] LABS: Glucose Point of Care 104 (65-105)
[2020-08-10] MEDS: FLUTICASONE/SALMETEROL 115-21 MCG (*SP) INHALER 2 PUFF INHALATION (08:17)
[2020-08-10] MEDS: MAGNESIUM OXIDE 400 MG TABLET PO (09:31)
[2020-08-10] MEDS: ramipriL 5 MG CAPSULE 20 MG PO (09:31)
[2020-08-10] MEDS: amLODIPine BESYLATE 5 MG TABLET 10 MG PO (09:31)
[2020-08-10] MEDS: ENOXAPARIN 40 MG/0.4 ML SYRINGE SUB-Q (09:31)
[2020-08-10] MEDS: ATORVASTATIN 20 MG TABLET BY MOUTH (09:32)
[2020-08-10] MEDS: FUROSEMIDE 20 MG TABLET BY MOUTH (09:32)
[2020-08-10 11:49] LABS: Glucose Point of Care 121 (65-105)
--- NOTE | 2020-08-10 13:08 | PM.DS ---
DS: Admitting Diagnosis Admitting Diagnosis Admitting Diagnosis: (1) Sepsis: Qualifiers: Sepsis acute organ dysfunction status: without acute organ dysfunction Sepsis type: sepsis due to unspecified organism Qualified Code(s): A41.9 - Sepsis, unspecified organism Code(s): A41.9 - Sepsis, unspecified organism Status: Acute (2) Community acquired pneumonia: Qualifiers: Laterality: unspecified laterality Qualified Code(s): J18.9 - Pneumonia, unspecified organism Code(s): J18.9 - Pneumonia, unspecified organism Status: Acute (3) Chronic respiratory failure with hypoxia, on home oxygen therapy: Code(s): J96.11 - Chronic respiratory failure with hypoxia; Z99.81 - Dependence on supplemental oxygen Status: Chronic (4) Chronic obstructive pulmonary disease: Code(s): J44.9 - Chronic obstructive pulmonary disease, unspecified Status: Chronic (5) Type 2 diabetes mellitus: Code(s): E11.9 - Type 2 diabetes mellitus without complications Status: Chronic (6) Person under investigation for COVID-19: Code(s): Z20.822 - Contact with and (suspected) exposure to COVID-19 Status: Acute DS: Discharge Diagnosis Discharge Diagnosis (1) Person under investigation for COVID-19: Code(s): Z20.822 - Contact with and (suspected) exposure to COVID-19 Status: Acute (2) Type 2 diabetes mellitus: Code(s): E11.9 - Type 2 diabetes mellitus without complications Status: Chronic (3) Chronic obstructive pulmonary disease: Code(s): J44.9 - Chronic obstructive pulmonary disease, unspecified Status: Chronic (4) Chronic respiratory failure with hypoxia, on home oxygen therapy: Code(s): J96.11 - Chronic respiratory failure with hypoxia; Z99.81 - Dependence on supplemental oxygen Status: Chronic (5) Sepsis: Qualifiers: Sepsis acute organ dysfunction status: without acute organ dysfunction Sepsis type: sepsis due to unspecified organism Qualified Code(s): A41.9 - Sepsis, unspecified organism Code(s): A41.9 - Sepsis, unspecified organism Status: Acute (6) Community acquired pneumonia: Qualifiers: Laterality: unspecified laterality Qualified Code(s): J18.9 - Pneumonia, unspecified organism Code(s): J18.9 - Pneumonia, unspecified organism Status: Acute (7) Acute and chronic respiratory failure with hypoxia: Code(s): J96.21 - Acute and chronic respiratory failure with hypoxia Status: Acute (8) Sleep apnea, unspecified: Code(s): G47.30 - Sleep apnea, unspecified Status: Acute (9) COPD (chronic obstructive pulmonary disease): Code(s): J44.9 - Chronic obstructive pulmonary disease, unspecified Status: Acute (10) Hypertension: Code(s): I10 - Essential (primary) hypertension Status: Acute DS: Summary Hospital Course Reason for hospitalization: [facility] – [place] Hospital Course: 07/07/20 The patient presents today with pretty sudden onset shortness of breath while ambulating from the bathroom although he was not wearing his oxygen at that time. Imaging today shows findings of pneumonia, possible aspiration pneumonitis according to the radiology read however less likely by history. Technically he meets sepsis criteria with elevated lactic acid level, leukocytosis, and hypotension. He received IV fluid boluses with normalization of his lactic acid level. Blood cultures have been obtained and are pending. Blood pressures initially improved with IV fluids but reportedly dropped again however I am wondering if he may have subclavian steal given his exam findings and I will ask the nurses to check blood pressures in both arms to evaluate for possible discrepancy. He has been started on antibiotics for community-acquired pneumonia. At this time he will remain in isolation pending SARS-CoV-2 by PCR. He has very mild expiratory wheezing which I think
[2020-08-10 16:11] LABS: Glucose Point of Care 107 (65-105)
--- NOTE | 2020-08-10 16:15 | HOMEO2EVAL ---
Evaluation was performed at [facility] Home Oxygen Evaluation RC: Home Oxygen (O2) Evaluation Start: 08/10/20 13:14 Freq: ONCE Status: Active Protocol: RPE Activity Type Activity Date Activity User E-Sign Co-Sign Detail Recorded Client Recorded Date Recorded By Document 08/10/20 15:45 ELIZA [email or web address] 08/10/20 16:15 ELIZA Document 08/10/20 15:48 ELIZA [email or web address] 08/10/20 16:15 ELIZA Document 08/10/20 15:50 ELIZA [email or web address] 08/10/20 16:15 ELIZA Document 08/10/20 15:51 ELIZA [email or web address] 08/10/20 16:15 ELIZA Document 08/10/20 15:52 ELIZA [email or web address] 08/10/20 16:15 ELIZA Document 08/10/20 16:00 ELIZA [email or web address] 08/10/20 16:15 ELIZA 08/10/20 08/10/20 08/10/20 15:45 15:48 15:50 Home O2 Evaluation Test Phase Resting Resting Exercise Oxygen Delivery Room Air Nasal Cannula Nasal Cannula Oxygen Flow Rate (L/min) 1 1 Pulse Oximetry (90-100 %) 87 L 90 87 L Home Oxygen Evaluation Comments Treatment Charges O2 Evaluation - Inpatient 08/10/20 08/10/20 08/10/20 15:51 15:52 16:00 Home O2 Evaluation Test Phase Exercise Exercise Resting Oxygen Delivery Nasal Cannula Nasal Cannula Nasal Cannula Oxygen Flow Rate (L/min) 2 3 1 Pulse Oximetry (90-100 %) 87 L 92 90 Home Oxygen Evaluation Comments PT REQUIRES 1 L RESTING AND 3 L WITH ACTIVITY Treatment Charges
--- NOTE | 2020-08-10 16:16 | PCRCNOTE ---
HOME O2 EVAL DONE, PT REQUIRES 1 L AT REST AND 3 L WITH ACTIVITY, PT HAS HOME O2 WITH [facility], WILL BRING UP [facility] FOR TRANSPORT HOME, I WILL FAX EVAL OVER FOR UPDATE TO [facility]. RN AWARE
== END 2020-08-10 16:54 | disposition home or self-care (01) | DRG 871 ==
LOC: ANHED 14:49 → ANHIMU 08-07 13:08
PROVIDERS: Emergency Medicine; Family Medicine; Physician Assistant; Admitting Provider Internal Medicine; Emergency Provider Nurse Practitioner; PCP Family Medicine; Visit Provider Hospitalist
DX: A41.9 Sepsis, unspecified organism (principal); J18.9 Pneumonia, unspecified organism; J69.0 Pneumonitis due to inhalation of food and vomit; J96.21 Acute and chronic respiratory failure with hypoxia; J44.0 Chronic obstructive pulmonary disease with (acute) lower respiratory infection; Z20.822 Contact with and (suspected) exposure to COVID-19; I10 Essential (primary) hypertension; E78.5 Hyperlipidemia, unspecified; E11.42 Type 2 diabetes mellitus with diabetic polyneuropathy; F41.9 Anxiety disorder, unspecified; G47.30 Sleep apnea, unspecified; Z99.81 Dependence on supplemental oxygen; Z87.891 Personal history of nicotine dependence; E66.9 Obesity, unspecified; Z68.34 Body mass index [BMI] 34.0-34.9, adult
CPT/HCPCS: 36415; 36600; 71045; 71275; 80048; 80053; 80076; 82805; 82948; 83036; 83605; 83735; 83880; 84484; 85025; 85027; 85610; 85730; 86140; 87040; 87449; 87899; 93005; 93923; 94618; 94640; 96361; 96365; 97161; 97165; 99285; A9270; C9803; J0295; J0456; J0696; J1650; J3475; J7030; Q9967; U0003; U0005

== ENCOUNTER → 2020-10-12 08:53 | Outpatient (CLI) | payer MEDICARE, OTHER, SELFPAY ==
--- NOTE | 2020-10-30 10:28 | WPDSLEEPSTUD ---
Sleep Study Date of Study: 10/12/20 Ordering Provider: Tone Sanchez MD Interpreting Physician: Anusha Stern MD Sleep Study Type: Split Polysomnogram Height: 1.83 m Weight: 111.584 kg Body Mass Index: 33.3 Neck Circumference (inches): 19 [place]: 6 Reason for Sleep Study Nocturnal hypoxemia on O2 at 6L/min, COPD and chronic hypoxemic respiratory failure He uses oxygen 1 L at rest, 3 L with activity and 6 L with sleep Sleep History Fadi Greenwood is a 64 year old man with COPD on home O2. He denies typical symptoms of sleep apnea. He indicates that he does not awaken from sleep feeling short of breath, does not awaken at night with heartburn, belching or coughing. He denies snoring and says that other people do not complain that he snores loudly. He does not have trouble sleep with a cold, does not wake up gasping for breath at night, does not have breathing problems at night observed by others. He denies sweating excessively at night or noticing his heart pounding or beating irregularly at night. He does not fall asleep during the day, he does not fall asleep involuntarily and does not fall asleep while driving. He does not have loss of muscle tone was strong emotion. He does not have daytime difficulties due to excessive sleepiness. He does not feel paralyzed on waking or falling asleep and does not have vivid dreamlike scenes upon awakening or falling asleep. He does not feel afraid to go to sleep. He does not have nightmares. He does not remember his dreams. He occasionally has racing thoughts. He does not feel sad or depressed. He occasionally has anxiety. He does not have muscular tension. He denies noticing parts of his body jerking. He does not kick at night. He does not have crawling or aching feelings in his legs or any kind of leg pain at night. He denies morning jaw pain. He does not grind his teeth during sleep. He is not bothered by pain during the day or awakened by pain during the night. He occasionally wakes up feeling stiff in the morning with sore achy muscles and pain in the neck and spine. He has memory problems. Normal bedtime is 11:00 p.m. falling asleep within 15-30 minutes typically waking up 5 times during the night to urinate. He is able to return to sleep in 1-2 minutes. His normal wake up time is 6:00 a.m.. This is the same schedule on weekends. He estimates getting 5 hours of sleep at night. He takes naps in the afternoon or evening. A short 10 or 15 minute nap may be refreshing. Habits: Former smoker quit cigarettes years ago. No caffeine. Alcohol: drank beer in the past, and used marijuana 21 years ago. [facility] Past Medical History Medical History Anxiety Chronic obstructive pulmonary disease Chronic respiratory failure with hypoxia, on home oxygen therapy Patient wears 4 L nasal cannula during the day. Diabetic peripheral neuropathy Former smoker Patient smoked anywhere from 0.5 to 2 packs of cigarettes per day. Hyperlipidemia Hypertension Type 2 diabetes mellitus Hemoglobin A1c was 6.8% on 05/14/2020. Surgical History Surgical History History of abdominal surgery As an infant. Patient is a poor historian regarding this surgery but does have a midline abdominal scar. History of colonoscopy with polypectomy Family History Family History Father Acute myocardial infarction, Onset Age: 50 Social History Social History Social History: The patient is and lives with his in [place]. Retired from [employer]. He smoked 0.5 to 2 packs of cigarettes per day for many years and quit about 5 years ago. 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 No illicit substance use. He designates his Charlene
[2020-10-30 12:03] VITALS: BMI 33.3
== END ==
PROVIDERS: Visit Provider Internal Medicine Pulmonary Disease
DX: G47.30 Sleep apnea, unspecified (principal); G47.33 Obstructive sleep apnea (adult) (pediatric)
CPT/HCPCS: 95811

== ENCOUNTER 2020-12-31 08:55 | Emergency (ER) | payer MEDICARE, OTHER, SELFPAY ==
[2020-12-31] VITALS (26 sets, daily range): BP systolic 120–166; BP diastolic 49–74; PULSE 67–94; RESP 10–24; TEMP 36.7; O2SAT 88–99
--- NOTE | ~2020-12-31 | XR_ITS ---
EXAMINATION: XR chest 1V portable EXAM DATE: 12/31/2020 09:41 INDICATION: Left-sided chest pain. TECHNIQUE: Portable AP frontal chest x-ray was obtained. There is no prior study for comparison. FINDINGS: Again there is bibasilar airspace disease, which is nonspecific. Could be mild atelectasis, edema or pneumonia. Clinical correlation. Mild hyperinflation. Cardiomediastinal silhouette is bharath l. There is aortic arteriosclerosis. There is no pneumothorax suspected. There are no pleural effusio ns. Osseous IMPRESSION: Bibasilar opacities, atelectasis, edema and/or pneumonia. Reviewed, dictated and finalized at location A.
--- NOTE | 2020-12-31 09:04 | ECG_ITS ---
Measurements Intervals [place] Rate: 87 P: 67 NH: 169 QRS: 59 QRSD: 98 T: 58 QT: 325 QTc: 392 Interpretive Statements SINUS RHYTHM BASELINE ARTIFACT- I, II, III, AVR, AVL, AVF, V4-V6 NORMAL ECG Electronically Signed On 12-31-2020 11:14:30 CDT by Marlon Andrade D.O.
[2020-12-31] MEDS: ALBUTEROL SULFATE NEB 2.5 MG/0.5 ML INH 5 MG INHALATION ×2 (09:05→09:10)
[2020-12-31] MEDS: IPRATROPIUM BR 0.02% INH SOLN 0.5 MG/2.5 ML VIAL INHALATION ×2 (09:05→09:10)
--- NOTE | 2020-12-31 09:27 | ED.SOB ---
HPI - SOB/Dyspnea General Chief Complaint: Shortness of Breath/Dyspnea Stated Complaint: sob Time Seen by Provider: 12/31/20 08:58 History of Present Illness HPI Narrative: Patient presents with shortness of breath. Reports he was making out with his 2 days ago he noted he was short of breath rested because there did well for the rest of the day to his usual activity yesterday was feeling well this morning when he woke up to use the restroom he was short of breath walking to the restroom. He was concerned so he came to the ER for evaluation. He denies any focal areas of pain such as chest pain or abdominal pain. He has not really appreciated any new or different cough denies any fevers, nausea, vomiting, lightheadedness Related Data Home Medications Medication Instructions Recorded Confirmed amlodipine 10 mg PO DAILY 05/11/20 12/05/20 atorvastatin 20 mg DAILY 05/11/20 12/05/20 furosemide 20 mg DAILY 05/11/20 12/05/20 ipratropium-albuterol 3 ml INHALATION Q4H PRN 05/11/20 12/05/20 metformin 1,000 mg PO BID 05/11/20 12/05/20 ramipril 20 mg PO DAILY 05/11/20 12/05/20 aspirin 81 mg PO EVERY OTHER DAY 08/06/20 12/05/20 multivitamin 1 tablet PO DAILY 08/14/20 12/05/20 pyridoxine (vitamin B6) 250 mg 250 mg PO DAILY 08/14/20 12/05/20 tablet Allergies Allergy/AdvReac Type Severity Reaction Status Date / Time naproxen Allergy Unknown Hives / Verified 12/31/20 09:19 Red Face Review of Systems Review of Systems: CONSTITUTIONAL: Denies fever, chills, or sweats. EYES: Denies visual changes, redness, or discharge. ENT: Denies rhinorrhea, congestion, sore throat, or otalgia. CARDIOVASCULAR: Denies chest pain, palpitations, or edema. RESPIRATORY: Reports shortness of breath GASTROINTESTINAL: Denies abdominal pain, nausea, vomiting, or diarrhea. GENITOURINARY: Denies dysuria or hematuria. SKIN: Denies rash or itching. MUSCULOSKELETAL: Denies back pain, joint pain, or myalgia. NEUROLOGIC: Denies headache, numbness, dizziness, or weakness. PSYCHIATRIC: Denies anxiety or depression. All systems reviewed & are unremarkable except as noted in HPI and below PMFSH Past Medical History Medical History Anxiety Chronic obstructive pulmonary disease Chronic respiratory failure with hypoxia, on home oxygen therapy Patient wears 4 L nasal cannula during the day. Diabetic peripheral neuropathy Former smoker Patient smoked anywhere from 0.5 to 2 packs of cigarettes per day. Hyperlipidemia Hypertension Type 2 diabetes mellitus Hemoglobin A1c was 6.8% on 05/14/2020. Surgical History Surgical History History of abdominal surgery As an infant. Patient is a poor historian regarding this surgery but does have a midline abdominal scar. History of colonoscopy with polypectomy Family History Family History Father Acute myocardial infarction, Onset Age: 50 Social History Social History Social History: The patient is and lives with his in [place]. Retired from [employer]. He smoked 0.5 to 2 packs of cigarettes per day for many years and quit about 5 years ago. 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 No illicit substance use. He designates his Arlene as his surrogate decision maker and he wishes to be a full code. Smoking status: Former smoker Sexual Orientation (if Verbalized by the Patient): Straight or Heterosexual Exam Narrative: GENERAL: Well-appearing, well-nourished, and in no acute distress. HEAD: Normocephalic, atraumatic. EYES: PERRLA and EOMI. ENT: Nares clear, no rhinorrhea or epistaxis. Mucous membranes moist. NECK: Supple. No masses. No JVD CHEST: Diminished aeration in all lung nguyen with mi
[2020-12-31] MEDS: methylPREDNISolone SOD SUCC 125 MG VIAL IV PUSH (09:45)
[2020-12-31 09:55] LABS: Basophils Absolute Auto 0.1 K/mm3 (0.0-0.1); Basophils Percent Auto 0.3 % (0.2-1.2); Eosinophils Percent Auto 0.2 % (0-4.4); Hematocrit 41.1 % (42.0-52.0); Hemoglobin 12.9 g/dL (14.0-18.0); Immature Granulocyte Absolute 0.26 K/mm3 (0.00-0.031); Immature Granulocyte Percent A 1.4 % (0-0.5); Lymphocytes Absolute Auto 3.02 K/mm3 (0.9-3.2); Lymphocytes Percent Auto 15.7 % (18.3-44.2); Mean Corpuscular HGB Conc 31.4 g/dl (32-36); Mean Corpuscular Hemoglobin 28.9 pg (26-34); Mean Corpuscular Volume 92.2 fl (80-100); Mean Platelet Volume 9.7 fl (7.4-10.4); Monocytes Absolute Auto 1.7 K/mm3 (0.1-0.6); Monocytes Percent Auto 8.6 % (2.6-8.5); Neutrophils Absolute Auto 14.2 K/mm3 (1.3-6.7); Neutrophils Percent Auto 73.8 % (45.5-73.1); Platelet Count Result 309 k/mm3 (150-375); Red Blood Count 4.46 M/mm3 (4.6-6.20); Red Cell Distribution Width 13.1 % (11.5-14.5); White Blood Count 19.2 K/mm3 (4.5-10.0)
[2020-12-31 10:07] LABS: Alanine Aminotransferase 15 U/L (4-50); Albumin Level 4.4 g/dL (3.5-5.1); Alkaline Phosphatase 78 U/L (38-126); Anion Gap 6 mmol/L (8-16); Aspartate Amino Transferase 24 U/L (17-59); Bilirubin,Total 0.3 mg/dL (0.2-1.3); Blood Urea Nitrogen 28 mg/dL (9-20); Calcium 9.8 mg/dL (8.4-10.2); Carbon Dioxide 36 mmol/L (22-30); Chloride 100 mmol/L (98-107); Estimated CRCL calculation 92 ml/min; Estimated Glomerular Filt Rate > 60; Glucose 174 mg/dL (65-110); Sodium 142 mmol/L (137-145)
[2020-12-31 10:18] LABS: Troponin I < 0.012 ng/mL (0.000-0.034)
== END 2020-12-31 11:58 | disposition home or self-care (01) ==
PROVIDERS: Emergency Provider Emergency Medicine
DX: J96.11 Chronic respiratory failure with hypoxia (principal); J44.1 Chronic obstructive pulmonary disease with (acute) exacerbation; F41.9 Anxiety disorder, unspecified; E11.42 Type 2 diabetes mellitus with diabetic polyneuropathy; E78.5 Hyperlipidemia, unspecified; I10 Essential (primary) hypertension; Z99.81 Dependence on supplemental oxygen; Z87.891 Personal history of nicotine dependence
CPT/HCPCS: 36415; 71045; 80053; 84484; 85025; 93005; 94640; 96374; 99284; J2930

== ENCOUNTER 2021-05-23 18:27 | Inpatient (IN) | payer MEDICARE, OTHER, SELFPAY ==
--- NOTE | ~2021-05-23 | XR_ITS ---
EXAMINATION: XR chest 1V portable DATE: 05/23/2021 20:14 INDICATION: Shortness of breath and hypoxia TECHNIQUE: frontal view of the chest was obtained. COMPARISON: Chest radiograph dated 12/31/2020 FINDINGS: Opacities in the bilateral lower lung zones with some improvement since the prior study, unclear whet her there was intervening resolution. No pleural effusion or pneumothorax. The cardiomediastinal silh ouette is normal. Atherosclerotic aorta. IMPRESSION: 1. Opacities in bilateral lower lung zones which could represent atelectasis/scarring or pneumonia. Reviewed, dictated and finalized at location A. SCALER IMPRESSION: 1. Opacities in bilateral lower lung zones which could represent atelectasis/sc arring or pneumonia.
--- NOTE | ~2021-05-23 | XR_ITS ---
EXAMINATION: XR chest 2V DATE: 05/27/2021 16:07 INDICATION: Pneumonia TECHNIQUE: PA and lateral views of the chest were obtained. COMPARISON: Chest radiograph dated 05/23/2021 FINDINGS: Kinsinger opacities at the bilateral lower lung zones which appear primarily linear/streaky which wou ld favor atelectasis/scarring over pneumonia. No pulmonary edema, pleural effusion or pneumothorax. T he cardiomediastinal silhouette is normal. Calcified subcarinal lymph nodes consistent with old granu lomatous disease. Atherosclerotic aorta. IMPRESSION: 1. Linear/streaky opacities at the bilateral lower lung zones and favor atelectasis over pneumonia. Reviewed, dictated and finalized at location A. RITIES SETTLEMENT PROCESSOR IMPRESSION: 1. Linear/streaky opacities at the bilateral lower lung zones and favor atelect asis over pneumonia.
[2021-05-23 18:35] VITALS: BP 180/67; PULSE 110; RESP 22; TEMP 37.2; O2SAT 90
[2021-05-23 20:06] VITALS: BP 174/75; PULSE 110; RESP 22; O2SAT 96
--- NOTE | 2021-05-23 20:06 | ECG_ITS ---
Measurements Intervals [place] Rate: 106 P: -1 SC: 125 QRS: 63 QRSD: 97 T: 36 QT: 306 QTc: 406 Interpretive Statements SINUS TACHYCARDIA DELAYED PRECORDIAL R/S TRANSITION BASELINE ARTIFACT- I, II, III, AVR, AVL, AVF, V4-V6 ABNORMAL ECG Electronically Signed On 05-23-2021 21:12:49 CARDIAC CATH RN by Marlon Andrade D.O.
[2021-05-23 20:07] VITALS: O2SAT 96
--- NOTE | 2021-05-23 20:26 | ED.GENADULT ---
HPI - General Adult General Chief complaint: Shortness of Breath/Dyspnea Stated complaint: low 02 Time Seen by Provider: 05/23/21 19:56 History of Present Illness HPI narrative: 65-year-old male with history of COPD and oxygen requirement presents to the emergency department complaining of worsening shortness of breath. Patient states that he was walking outside when he smelled a strange smell and noticed that he started having some shortness of breath. Patient did check his pulse ox after resting for 10 minutes and noticed it was at 75% ORA. Patient is normally on 8 L of oxygen at nighttime, 2 L with activity and 1 L at rest. Patient states at baseline he does not normally need o2 and with activity still saturates in the low 90s. Today patient was 75% on room air, 90% at rest on 4 L. Patient does have a recent admission for a COPD exacerbation. Patient denies any chest pain. Patient is vaccinated and is COVID. Patient has not yet had COVID. Related Data Home Medications Medication Instructions Recorded Confirmed amlodipine 10 mg PO DAILY 05/11/20 04/10/21 atorvastatin 20 mg DAILY 05/11/20 04/10/21 furosemide 20 mg DAILY 05/11/20 04/10/21 metformin 1,000 mg PO BID 05/11/20 04/10/21 ramipril 20 mg PO DAILY 05/11/20 04/10/21 aspirin 81 mg PO EVERY OTHER DAY 08/06/20 04/10/21 multivitamin 1 tablet PO DAILY 08/14/20 04/10/21 pyridoxine (vitamin B6) 250 mg 250 mg PO DAILY 08/14/20 04/10/21 tablet Allergies Allergy/AdvReac Type Severity Reaction Status Date / Time naproxen Allergy Unknown Hives / Verified 04/10/21 14:12 Red Face Review of Systems Review of Systems: CONSTITUTIONAL: Denies fever, chills, or sweats. EYES: Denies visual changes, redness, or discharge. ENT: Denies rhinorrhea, congestion, sore throat, or otalgia. CARDIOVASCULAR: Denies chest pain, palpitations, or edema. RESPIRATORY: Worsening shortness of breath GASTROINTESTINAL: Denies abdominal pain, nausea, vomiting, or diarrhea. GENITOURINARY: Denies dysuria or hematuria. SKIN: Denies rash or itching. MUSCULOSKELETAL: Denies back pain, joint pain, or myalgia. NEUROLOGIC: Denies headache, numbness, or weakness. PSYCHIATRIC: Denies anxiety or depression. [facility] Past Medical History Medical History Anxiety Chronic obstructive pulmonary disease Chronic respiratory failure with hypoxia, on home oxygen therapy Patient wears 4 L nasal cannula during the day. Diabetic peripheral neuropathy Former smoker Patient smoked anywhere from 0.5 to 2 packs of cigarettes per day. Hyperlipidemia Hypertension Type 2 diabetes mellitus Hemoglobin A1c was 6.8% on 05/14/2020. Surgical History Surgical History History of abdominal surgery As an infant. Patient is a poor historian regarding this surgery but does have a midline abdominal scar. History of colonoscopy with polypectomy Family History Family History Father Acute myocardial infarction, Onset Age: 50 Social History Social History Social History: The patient is and lives with his in [place]. Retired from [employer]. He smoked 0.5 to 2 packs of cigarettes per day for many years and quit about 5 years ago. 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 No illicit substance use. He designates his Arlene as his surrogate decision maker and he wishes to be a full code. Smoking status: Former smoker Sexual Orientation (if Verbalized by the Patient): Straight or Heterosexual Exam Narrative: APPEARANCE: Well appearing, no pain, no distress, well-nourished. HEAD: normocephalic, atraumatic. EYES: PERRLA/EOMI, conjunctivae clear. NECK: Supple. No adenopathy, no masses. RESPIRATORY: Airway patent, re
[2021-05-23 20:49] LABS: Basophils Absolute Auto 0.1 K/mm3 (0.0-0.1); Basophils Percent Auto 0.3 % (0.2-1.2); Eosinophils Absolute Auto 0.1 K/mm3 (0-0.3); Eosinophils Percent Auto 0.6 % (0-4.4); Hematocrit 44.8 % (42.0-52.0); Immature Granulocyte Absolute 0.06 K/mm3 (0.00-0.031); Immature Granulocyte Percent A 0.3 % (0-0.5); Lymphocytes Absolute Auto 1.29 K/mm3 (0.9-3.2); Lymphocytes Percent Auto 7.3 % (18.3-44.2); Mean Corpuscular HGB Conc 31.3 g/dl (32-36); Mean Corpuscular Hemoglobin 28.2 pg (26-34); Mean Corpuscular Volume 90.1 fl (80-100); Mean Platelet Volume 9.6 fl (7.4-10.4); Monocytes Absolute Auto 1.6 K/mm3 (0.1-0.6); Monocytes Percent Auto 8.8 % (2.6-8.5); Neutrophils Absolute Auto 14.6 K/mm3 (1.3-6.7); Neutrophils Percent Auto 82.7 % (45.5-73.1); Platelet Count Result 269 k/mm3 (150-375); Red Blood Count 4.97 M/mm3 (4.6-6.20); Red Cell Distribution Width 13.4 % (11.5-14.5); White Blood Count 17.6 K/mm3 (4.5-10.0)
[2021-05-23 20:52] VITALS: O2SAT 97
[2021-05-23 21:10] LABS: Alanine Aminotransferase 16 U/L (4-50); Albumin Level 4.7 g/dL (3.5-5.1); Alkaline Phosphatase 82 U/L (38-126); Anion Gap 14 mmol/L (8-16); Aspartate Amino Transferase 24 U/L (17-59); Bilirubin,Total 0.3 mg/dL (0.2-1.3); Blood Urea Nitrogen 32 mg/dL (9-20); Calcium 10.1 mg/dL (8.4-10.2); Carbon Dioxide 29 mmol/L (22-30); Chloride 101 mmol/L (98-107); Estimated CRCL calculation 71 ml/min; Estimated Glomerular Filt Rate > 60; Glucose 194 mg/dL (65-110); Potassium 4.7 mmol/L (3.4-5.0); Sodium 144 mmol/L (137-145)
[2021-05-23 21:22] LABS: NT Pro B Type Natriuretic Pept 276 pg/mL (5-100); Troponin I < 0.012 ng/mL (0.000-0.034)
[2021-05-23 21:34] LABS: SARS-CoV-2 RNA PCR Negative
[2021-05-23 22:33] VITALS: BP 154/67; PULSE 97; RESP 21; O2SAT 96
[2021-05-23] MEDS: methylPREDNISolone SOD SUCC 125 MG VIAL IV PUSH (22:35)
--- NOTE | 2021-05-23 22:38 | PM.IMHP ---
H&P: HPI History of Present Illness Date/Time: 05/23/21 22:38 Chief Complaint: Shortness of breath Narrative: This is a 65-year-old male with past medical history significant for COPD/emphysema, former tobacco user, chronic hypoxic respiratory failure on supplemental oxygen at home, type 2 diabetes mellitus. Patient presents to the emergency room due to acute onset of shortness of breath according to the patient he has been his usual state of health has been actively exercising in the morning when he suddenly developed shortness of breath and was feeling off he checks his oxygen saturation and was indicating 75%, patient denies any cough he had wheezing a early on, no sputum production, no fevers, no rigors ,no chills, no chest pain, no PND ,no orthopnea, no leg swelling, no ankle swelling. Preliminary workup was significant for white cell count of 17,000, chest x-ray shows some infiltrates. Patient was placed on supplemental oxygen at the time of my visit patient was saturating 96%. Review of Systems Constitutional: Constitutional: Denies chills, Denies fatigue, Denies fever(s), Denies malaise, Denies night sweats, Denies poor appetite and Denies weakness Eyes: Eyes: Denies change in vision ENT: Denies dysphagia, Denies vertigo, Denies dizziness, Denies nasal congestion, Denies nasal discharge, Denies nasal obstruction and Denies odynophagia Cardiovascular: Cardiovascular: Denies chest pain, Denies pedal edema, Denies leg edema, Denies lightheadedness, Denies radiating jaw, neck or arm pain, Denies palpitations, Denies dyspnea on exertion, Denies orthopnea and Denies paroxysmal nocturnal dyspnea Respiratory: Respiratory: Denies change in phlegm color, Denies excessive phlegm production, Reports dyspnea and Reports wheezing Gastrointestinal: Gastrointestinal: Denies abdominal pain, Denies diarrhea, Denies nausea and Denies vomiting Genitourinary: Genitourinary: Reports no additional male genitourinary complaints and Reports as per HPI Musculoskeletal: Musculoskeletal: Denies arthralgias, Denies joint swelling and Denies limited range of motion Integumentary/Breasts: Skin/Breast: Denies rash Neurologic: Denies dizziness, Denies focal weakness, Denies radicular pain and Denies Sensory deficit (Neuro) Psychiatric: Psychiatric: Reports no additional psychiatric complaints and Reports as per HPI Endocrine: Endocrine: Denies cold intolerance, Denies excessive sweating, Denies heat intolerance, Denies polyphagia, Denies polydipsia, Denies polyuria and Denies palpitations Hematologic/Lymphatic: Hematologic/Lymphatic: Reports no additional hematologic/lymphatic complaints and Reports as per HPI Allergic/Immunologic: Allergic/Immunologic: Reports no additional allergic/immunologic complaints and Reports as per HPI [facility] Past Medical History Medical History Anxiety Chronic obstructive pulmonary disease Chronic respiratory failure with hypoxia, on home oxygen therapy Patient wears 4 L nasal cannula during the day. Diabetic peripheral neuropathy Former smoker Patient smoked anywhere from 0.5 to 2 packs of cigarettes per day. Hyperlipidemia Hypertension Type 2 diabetes mellitus Hemoglobin A1c was 6.8% on 05/14/2020. Surgical History Surgical History History of abdominal surgery As an . Patient is a poor historian regarding this surgery but does have a midline abdominal scar. History of colonoscopy with polypectomy Family History Family History Father Acute myocardial infarction, Onset Age: 50 Social History Social History Social History: The patient is and lives with his in [place]. Retired from [employer]. He smoked 0.5 to 2 packs of cigarettes per day for many years and quit a
[2021-05-23 23:43] VITALS: BP 159/82; PULSE 97; RESP 20; O2SAT 98
[2021-05-24] VITALS (22 sets, daily range): BP systolic 114–156; BP diastolic 53–80; PULSE 78–104; RESP 16–22; TEMP 35.9–36.6; O2SAT 91–99; BMI 34.2
[2021-05-24] MEDS: ALBUTEROL SULFATE NEB 2.5 MG/0.5 ML INH 5 MG INHALATION ×2 (03:14→08:30)
--- NOTE | 2021-05-24 03:29 | ADMGEN ---
This patient, Fadi Greenwood, was admitted to [facility] Surg Room 311-01. Patient/family oriented to hospital policies and general routines including ID bracelet, bed and alarms, visiting hours, pain management, procedures, bathroom and other care routines, personal items, smoking policy, room service/diet, and visiting hours. Information on how to activate the Rapid Response Team has been discussed. Patient/Family are encouraged to report perceived risks to care and to ask questions if they do not understand what they are told or what they should do.
[2021-05-24] MEDS: methylPREDNISolone SOD SUCC 125 MG VIAL 60 MG IV PUSH ×3 (06:00→17:30)
[2021-05-24] MEDS: IPRATROPIUM BR 0.02% INH SOLN 0.5 MG/2.5 ML VIAL INHALATION ×4 (08:30→19:53)
[2021-05-24] MEDS: FLUTICASONE/UMECLIDIN/VILANTER 200-62.5-25 MCG ELLIPTA 1 PUFF INHALATION (08:34)
--- NOTE | 2021-05-24 09:29 | ECG_ITS ---
Measurements Intervals [place] Rate: 98 P: -13 [place]: 140 QRS: 57 QRSD: 104 T: 54 QT: 335 QTc: 428 Interpretive Statements SINUS RHYTHM POSSIBLE LEFT ATRIAL ENLARGEMENT BASELINE ARTIFACT- I, II, III BORDERLINE ECG Electronically Signed On 05-24-2021 12:15:32 COST RECOVERY TECHNICIAN by Marlon Andrade D.O.
[2021-05-24] MEDS: MULTIVITAMINS THERAPEUTIC TAB (*BKC) 1 TABLET PO (09:38)
[2021-05-24] MEDS: ASPIRIN 81 MG ENTERIC TABLET PO (09:38)
[2021-05-24] MEDS: PYRIDOXINE HCL 50 MG TABLET 250 MG PO (09:38)
[2021-05-24] MEDS: ATORVASTATIN 20 MG TABLET PO (09:38)
[2021-05-24] MEDS: amLODIPine BESYLATE 5 MG TABLET 10 MG PO (09:38)
[2021-05-24] MEDS: ENOXAPARIN 40 MG/0.4 ML SYRINGE SUB-Q (09:43)
[2021-05-24 09:59] LABS: Hemoglobin A1C 6.7 % (<5.7)
[2021-05-24 10:08] LABS: Glucose Point of Care 374 mg/dl (65-105)
[2021-05-24 10:13] LABS: Troponin I < 0.012 ng/mL (0.000-0.034)
[2021-05-24 11:55] LABS: Glucose Point of Care 396 mg/dl (65-105)
[2021-05-24] MEDS: ramipriL 5 MG CAPSULE 20 MG PO (12:11)
[2021-05-24] MEDS: INSULIN ASPART (*BKC) 100 UNITS/ML SUB-Q ×2 (12:12→17:30)
[2021-05-24] MEDS: ALBUTEROL SULFATE NEB 2.5 MG/0.5 ML INH INHALATION ×3 (13:03→19:53)
--- NOTE | 2021-05-24 14:36 | PM.IMPN ---
Progress Note: A&P Assessment and Plan (1) Chronic respiratory failure with hypoxia, on home oxygen therapy: Code(s): J96.11 - Chronic respiratory failure with hypoxia; Z99.81 - Dependence on supplemental oxygen Status: Chronic Assessment and Plan: Admit to regular medical floor Breathing treatments q.4 hours Systemic steroids Continue oxygen supplementation for oxygen saturation in between 90-94% Continue to monitor 05/24/2021 interval history patient with history of COPD emphysema presented with a shortness of breath secondary to exacerbation of COPD concerning for pneumonia patient is being treated with methylprednisone, DuoNeb, azithromycin and ceftriaxone. patient states feeling better compared to when he arrived not a short of breath, patient with history of diabetes will resume home medication and monitor with sliding scale, will have PT OT evaluate the patient and further recommendation to follow. (2) Obstructive sleep apnea: Code(s): G47.33 - Obstructive sleep apnea (adult) (pediatric) Status: Acute Assessment and Plan: Patient wears a L at nighttime by nasal cannula (3) Acute and chronic respiratory failure with hypoxia: Code(s): J96.21 - Acute and chronic respiratory failure with hypoxia Status: Acute Assessment and Plan: As above (4) Acute hypoxemic respiratory failure: Code(s): J96.01 - Acute respiratory failure with hypoxia Status: Acute Assessment and Plan: Likely secondary to COPD exacerbation Continue oxygen supplement Subjective Date/time seen: 05/24/21 14:36 Chief Complaint: Shortness of breath HPI-Narrative: This is a 65-year-old male with past medical history significant for COPD/emphysema, former tobacco user, chronic hypoxic respiratory failure on supplemental oxygen at home, type 2 diabetes mellitus. Patient presents to the emergency room due to acute onset of shortness of breath according to the patient he has been his usual state of health has been actively exercising in the morning when he suddenly developed shortness of breath and was feeling off he checks his oxygen saturation and was indicating 75%, patient denies any cough he had wheezing a early on, no sputum production, no fevers, no rigors ,no chills, no chest pain, no PND ,no orthopnea, no leg swelling, no ankle swelling. Preliminary workup was significant for white cell count of 17,000, chest x-ray shows some infiltrates. Patient was placed on supplemental oxygen at the time of my visit patient was saturating 96%. 05/24/2021 interval history patient with history of COPD emphysema presented with a shortness of breath secondary to exacerbation of COPD concerning for pneumonia patient is being treated with methylprednisone, DuoNeb, azithromycin and ceftriaxone. patient states feeling better compared to when he arrived not a short of breath, patient with history of diabetes will resume home medication and monitor with sliding scale, will have PT OT evaluate the patient and further recommendation to follow. Review of Systems Review of Systems: All systems reviewed & are unremarkable except as noted in HPI and below Exam Narrative: moderately obese Patient is comfortable, NAD HEENT: eyes are clear and none icteric LUNGS: bilateral fair entry with wheezing and rhonchi HEART: RR S1S2 ABD: distended Lower extremities: no edema SKIN: nonjaundiced Neuro: grossly intact. Objective Data Vital Signs Vital Signs: Vital Signs - 24 hr 05/23/21 18:35 05/23/21 20:06 05/23/21 20:07 Temperature 98.9 F Pulse Rate 110 H 110 H Respiratory Rate 22 H 22 H Blood Pressure 180/67 H 174/75 H Pulse Oximetry 90 96 96 05/23/21 20:52 05/23/21 22:33 05/23/21 23:43 Temperature Pulse Rate 97 97 Respiratory Rate 21 H 20 Blood Pressure 154/67 H 159/82 H Pulse Oximetry 97 96 98 05/24/21 01:21 05/24/21 02:05 05/24/21 02:25 Temperature 97.5 F L 97 F L 97.9 F Pu
--- NOTE | 2021-05-24 15:02 | PC.NURSE ---
At 0930, the patient requested to speak with me. Upon entering the room, the patient stated that he just doesn't feel right. The patient stated that he was experiencing chest discomfort and right arm numbness. The patient's vitals were as follows, 97.3 temp, 104 heart rate, 18 respirations, 99% on 1L, and 139/58 blood pressure. I called Dr. Whittaker and obtained orders for a STAT EKG, and troponin. Dr. Whittaker stated that he will come and assess the patient.
[2021-05-24 16:49] LABS: Glucose Point of Care 278 mg/dl (65-105)
[2021-05-24] MEDS: metFORMIN HCL 500 MG TABLET 1000 MG PO (17:31)
[2021-05-24 20:14] LABS: Glucose Point of Care 226 mg/dl (65-105)
[2021-05-24] MEDS: INSULIN GLARGINE (*BKC) 100 UNITS/ML 17 UNITS SUB-Q (20:16)
[2021-05-25] VITALS (20 sets, daily range): BP systolic 114–133; BP diastolic 46–69; PULSE 50–93; RESP 18–20; TEMP 35.9–36.6; O2SAT 92–100
[2021-05-25] MEDS: IPRATROPIUM BR 0.02% INH SOLN 0.5 MG/2.5 ML VIAL INHALATION ×6 (00:17→19:05)
[2021-05-25] MEDS: ALBUTEROL SULFATE NEB 2.5 MG/0.5 ML INH INHALATION ×6 (00:17→19:06)
[2021-05-25] MEDS: methylPREDNISolone SOD SUCC 125 MG VIAL 60 MG IV PUSH ×5 (00:29→23:38)
[2021-05-25 06:18] LABS: Hematocrit 39.8 % (42.0-52.0); Hemoglobin 12.3 g/dL (14.0-18.0); Mean Corpuscular HGB Conc 30.9 g/dl (32-36); Mean Corpuscular Volume 90.7 fl (80-100); Platelet Count Result 249 k/mm3 (150-375); Red Blood Count 4.39 M/mm3 (4.6-6.20); Red Cell Distribution Width 13.4 % (11.5-14.5); White Blood Count 16.9 K/mm3 (4.5-10.0)
[2021-05-25 06:27] LABS: Anion Gap 10 mmol/L (8-16); Blood Urea Nitrogen 39 mg/dL (9-20); Calcium 9.2 mg/dL (8.4-10.2); Carbon Dioxide 26 mmol/L (22-30); Chloride 101 mmol/L (98-107); Estimated CRCL calculation 94 ml/min; Estimated Glomerular Filt Rate > 60; Glucose 213 mg/dL (65-110); Potassium 4.9 mmol/L (3.4-5.0); Sodium 137 mmol/L (137-145)
[2021-05-25 08:06] LABS: Glucose Point of Care 217 mg/dl (65-105)
[2021-05-25] MEDS: FLUTICASONE/UMECLIDIN/VILANTER 200-62.5-25 MCG ELLIPTA 1 PUFF INHALATION (08:15)
[2021-05-25] MEDS: INSULIN ASPART (*BKC) 100 UNITS/ML SUB-Q ×2 (09:56→12:18)
[2021-05-25] MEDS: ATORVASTATIN 20 MG TABLET PO (09:57)
[2021-05-25] MEDS: ENOXAPARIN 40 MG/0.4 ML SYRINGE SUB-Q (09:58)
[2021-05-25] MEDS: MULTIVITAMINS THERAPEUTIC TAB (*BKC) 1 TABLET PO (09:58)
[2021-05-25] MEDS: metFORMIN HCL 500 MG TABLET 1000 MG PO ×2 (09:58→17:09)
[2021-05-25] MEDS: PYRIDOXINE HCL 50 MG TABLET 250 MG PO (09:58)
[2021-05-25] MEDS: ramipriL 5 MG CAPSULE 20 MG PO (09:58)
[2021-05-25] MEDS: amLODIPine BESYLATE 5 MG TABLET 10 MG PO (09:58)
[2021-05-25 12:02] LABS: Glucose Point of Care 326 mg/dl (65-105)
--- NOTE | 2021-05-25 15:15 | PM.IMPN ---
Progress Note: A&P Assessment and Plan (1) Chronic respiratory failure with hypoxia, on home oxygen therapy: Code(s): J96.11 - Chronic respiratory failure with hypoxia; Z99.81 - Dependence on supplemental oxygen Status: Chronic Assessment and Plan: Admit to regular medical floor Breathing treatments q.4 hours Systemic steroids Continue oxygen supplementation for oxygen saturation in between 90-94% Continue to monitor 05/24/2021 interval history patient with history of COPD emphysema presented with a shortness of breath secondary to exacerbation of COPD concerning for pneumonia patient is being treated with methylprednisone, DuoNeb, azithromycin and ceftriaxone. patient states feeling better compared to when he arrived not a short of breath, patient with history of diabetes will resume home medication and monitor with sliding scale, will have PT OT evaluate the patient and further recommendation to follow. 05/25/2021 interval history patient with history of COPD emphysema presented with a shortness of breath secondary to exacerbation of COPD concerning for pneumonia patient is being treated with methylprednisone, DuoNeb, azithromycin and ceftriaxone. patient stats during day he does not any oxygen at home however patient is 2L at rest edith with activities, will CPM, plan is to wean patient off oxygen, will taper methylprednisone. patient states feeling better compared to when he arrived not a short of breath, patient with history of diabetes will resume home medication and monitor with sliding scale, will have PT OT evaluate the patient and further recommendation to follow. (2) Obstructive sleep apnea: Code(s): G47.33 - Obstructive sleep apnea (adult) (pediatric) Status: Acute Assessment and Plan: Patient wears a L at nighttime by nasal cannula (3) Acute and chronic respiratory failure with hypoxia: Code(s): J96.21 - Acute and chronic respiratory failure with hypoxia Status: Acute Assessment and Plan: As above (4) Acute hypoxemic respiratory failure: Code(s): J96.01 - Acute respiratory failure with hypoxia Status: Acute Assessment and Plan: Likely secondary to COPD exacerbation Continue oxygen supplement Subjective Date/time seen: 05/25/21 15:15 05/25/2021 interval history patient with history of COPD emphysema presented with a shortness of breath secondary to exacerbation of COPD concerning for pneumonia patient is being treated with methylprednisone, DuoNeb, azithromycin and ceftriaxone. patient stats during day he does not any oxygen at home however patient is 2L at rest edith with activities, will CPM, plan is to wean patient off oxygen, will taper methylprednisone. patient states feeling better compared to when he arrived not a short of breath, patient with history of diabetes will resume home medication and monitor with sliding scale, will have PT OT evaluate the patient and further recommendation to follow. Review of Systems Review of Systems: All systems reviewed & are unremarkable except as noted in HPI and below Exam Narrative: moderately obese Patient is comfortable, NAD HEENT: eyes are clear and none icteric LUNGS: bilateral fair entry with wheezing and rhonchi HEART: RR S1S2 ABD: distended Lower extremities: no edema SKIN: nonjaundiced Neuro: grossly intact. Objective Data Vital Signs Vital Signs: Vital Signs - 24 hr 05/24/21 15:40 05/24/21 15:49 05/24/21 16:00 Temperature 97.5 F L Pulse Rate 80 82 83 Respiratory Rate 18 18 18 Blood Pressure 126/63 Pulse Oximetry 96 05/24/21 19:54 05/24/21 19:58 05/24/21 20:00 Temperature 96.9 F L Pulse Rate 82 82 91 Respiratory Rate 18 16 Blood Pressure 114/55 L Pulse Oximetry 96 97 05/24/21 20:03 05/25/21 00:00 05/25/21 00:17 Temperature 97.8 F Pulse Rate 81 89 88 Respiratory Rate 18 18 18 Blood Pressure 114/46 L Pulse Oximetry 100 05/25/21 00:2
--- NOTE | 2021-05-25 15:46 | WPDCDIQUERY2 ---
CDI Query Clarification Request -Pneumonia documented by EDP -05/23 CXR impression: Opacities in bilateral lower lung zones which could represent atelectasis/scarring or pneumonia -WBC on arrival 17.6 - shortness of breath secondary to exacerbation of COPD concerning for pneumonia documented in progress notes -Rocephin and Zithromax IV given once in ED Please clarify if pneumonia has been ruled in, ruled out, or unable to determine. <Mee Porter RN - Last Filed: 05/25/21 15:51> Clarified Diagnosis (1) Pneumonia: Qualifiers: Laterality: bilateral Lung location: lower lobe of lung Pneumonia type: due to unspecified organism Qualified Code(s): J18.9 - Pneumonia, unspecified organism <Mee Porter RN - Last Filed: 05/25/21 15:51> Code(s): J18.9 - Pneumonia, unspecified organism <Mee Porter RN - Last Filed: 05/25/21 15:51> Status: Acute <Mee Porter RN - Last Filed: 05/25/21 15:51> Assessment and Plan: patient with cough and shortness of breath chest x-ray showing concerning for pneumonia, patient with pneumonia was treated with Rocephin and azithromycin <Darling Whittaker MD - Last Filed: 06/09/21 15:19>
[2021-05-25 17:07] LABS: Glucose Point of Care 135 mg/dl (65-105)
[2021-05-25] MEDS: INSULIN GLARGINE (*BKC) 100 UNITS/ML 17 UNITS SUB-Q (21:10)
[2021-05-25 22:15] LABS: Glucose Point of Care 270 mg/dl (65-105)
[2021-05-26] VITALS (17 sets, daily range): BP systolic 110–144; BP diastolic 48–77; PULSE 56–105; RESP 16–20; TEMP 36.1–36.6; O2SAT 92–100
[2021-05-26] MEDS: ALBUTEROL SULFATE NEB 2.5 MG/0.5 ML INH INHALATION ×6 (00:12→19:20)
[2021-05-26] MEDS: IPRATROPIUM BR 0.02% INH SOLN 0.5 MG/2.5 ML VIAL INHALATION ×6 (00:12→19:20)
[2021-05-26] MEDS: methylPREDNISolone SOD SUCC 125 MG VIAL 60 MG IV PUSH ×3 (06:25→17:18)
[2021-05-26 06:56] LABS: Hematocrit 41.6 % (42.0-52.0); Hemoglobin 12.6 g/dL (14.0-18.0); Mean Corpuscular HGB Conc 30.3 g/dl (32-36); Mean Corpuscular Hemoglobin 28.1 pg (26-34); Mean Corpuscular Volume 92.7 fl (80-100); Mean Platelet Volume 10.2 fl (7.4-10.4); Platelet Count Result 264 k/mm3 (150-375); Red Blood Count 4.49 M/mm3 (4.6-6.20); Red Cell Distribution Width 13.6 % (11.5-14.5); White Blood Count 18.7 K/mm3 (4.5-10.0)
[2021-05-26 07:11] LABS: Anion Gap 12 mmol/L (8-16); Blood Urea Nitrogen 43 mg/dL (9-20); Calcium 9.3 mg/dL (8.4-10.2); Carbon Dioxide 28 mmol/L (22-30); Chloride 99 mmol/L (98-107); Estimated CRCL calculation 78 ml/min; Estimated Glomerular Filt Rate > 60; Glucose 211 mg/dL (65-110); Potassium 4.9 mmol/L (3.4-5.0); Sodium 139 mmol/L (137-145)
[2021-05-26 07:37] LABS: Glucose Point of Care 210 mg/dl (65-105)
[2021-05-26] MEDS: PYRIDOXINE HCL 50 MG TABLET 250 MG PO (08:12)
[2021-05-26] MEDS: amLODIPine BESYLATE 5 MG TABLET 10 MG PO (08:12)
[2021-05-26] MEDS: ramipriL 5 MG CAPSULE 20 MG PO (08:12)
[2021-05-26] MEDS: ATORVASTATIN 20 MG TABLET PO (08:12)
[2021-05-26] MEDS: metFORMIN HCL 500 MG TABLET 1000 MG PO ×2 (08:13→17:18)
[2021-05-26] MEDS: INSULIN ASPART (*BKC) 100 UNITS/ML SUB-Q ×3 (08:13→17:19)
[2021-05-26] MEDS: ASPIRIN 81 MG ENTERIC TABLET PO (08:13)
[2021-05-26] MEDS: MULTIVITAMINS THERAPEUTIC TAB (*BKC) 1 TABLET PO (08:13)
[2021-05-26] MEDS: FLUTICASONE/UMECLIDIN/VILANTER 200-62.5-25 MCG ELLIPTA 1 PUFF INHALATION (08:21)
[2021-05-26] MEDS: ENOXAPARIN 40 MG/0.4 ML SYRINGE SUB-Q (11:01)
[2021-05-26 11:45] LABS: Glucose Point of Care 268 mg/dl (65-105)
--- NOTE | 2021-05-26 12:42 | PM.IMPN ---
Progress Note: A&P Assessment and Plan (1) Chronic respiratory failure with hypoxia, on home oxygen therapy: Code(s): J96.11 - Chronic respiratory failure with hypoxia; Z99.81 - Dependence on supplemental oxygen Status: Chronic Assessment and Plan: Admit to regular medical floor Breathing treatments q.4 hours Systemic steroids Continue oxygen supplementation for oxygen saturation in between 90-94% Continue to monitor 05/24/2021 interval history patient with history of COPD emphysema presented with a shortness of breath secondary to exacerbation of COPD concerning for pneumonia patient is being treated with methylprednisone, DuoNeb, azithromycin and ceftriaxone. patient states feeling better compared to when he arrived not a short of breath, patient with history of diabetes will resume home medication and monitor with sliding scale, will have PT OT evaluate the patient and further recommendation to follow. 05/25/2021 interval history patient with history of COPD emphysema presented with a shortness of breath secondary to exacerbation of COPD concerning for pneumonia patient is being treated with methylprednisone, DuoNeb, azithromycin and ceftriaxone. patient stats during day he does not any oxygen at home however patient is 2L at rest edith with activities, will CPM, plan is to wean patient off oxygen, will taper methylprednisone. patient states feeling better compared to when he arrived not a short of breath, patient with history of diabetes will resume home medication and monitor with sliding scale, will have PT OT evaluate the patient and further recommendation to follow. 05/26/2021 interval history patient with history of COPD emphysema presented with a shortness of breath secondary to exacerbation of COPD concerning for pneumonia patient is being treated with methylprednisone, DuoNeb, azithromycin and ceftriaxone. patient stats during day he does not use any oxygen at home however he was requring 4L with activities at home, patient is on 2L at rest and at night, will CPM, plan is to wean patient off oxygen, will taper methylprednisone. patient states feeling better compared to when he arrived not a short of breath, will order CXR, patient with history of diabetes will resume home medication and monitor with sliding scale, will have PT OT evaluate the patient and further recommendation to follow. (2) Obstructive sleep apnea: Code(s): G47.33 - Obstructive sleep apnea (adult) (pediatric) Status: Acute Assessment and Plan: Patient wears a L at nighttime by nasal cannula (3) Acute and chronic respiratory failure with hypoxia: Code(s): J96.21 - Acute and chronic respiratory failure with hypoxia Status: Acute Assessment and Plan: As above (4) Acute hypoxemic respiratory failure: Code(s): J96.01 - Acute respiratory failure with hypoxia Status: Acute Assessment and Plan: Likely secondary to COPD exacerbation Continue oxygen supplement Subjective Date/time seen: 05/26/21 12:42 05/24/2021 interval history patient with history of COPD emphysema presented with a shortness of breath secondary to exacerbation of COPD concerning for pneumonia patient is being treated with methylprednisone, DuoNeb, azithromycin and ceftriaxone. patient states feeling better compared to when he arrived not a short of breath, patient with history of diabetes will resume home medication and monitor with sliding scale, will have PT OT evaluate the patient and further recommendation to follow. 05/25/2021 interval history patient with history of COPD emphysema presented with a shortness of breath secondary to exacerbation of COPD concerning for pneumonia patient is being treated with methylprednisone, DuoNeb, azithromycin and ceftriaxone. patient stats during day he does not any oxygen at home however patient is 2L at rest edith with activities, will CPM, plan is to wean patient off oxygen, w
[2021-05-26 16:43] LABS: Glucose Point of Care 282 mg/dl (65-105)
[2021-05-26 20:36] LABS: Glucose Point of Care 204 mg/dl (65-105)
[2021-05-26] MEDS: INSULIN GLARGINE (*BKC) 100 UNITS/ML 17 UNITS SUB-Q (21:06)
[2021-05-27] VITALS (16 sets, daily range): BP systolic 129–143; BP diastolic 60–66; PULSE 79–99; RESP 16–20; TEMP 36.3–36.5; O2SAT 93–98
[2021-05-27] MEDS: methylPREDNISolone SOD SUCC 125 MG VIAL 60 MG IV PUSH ×5 (00:04→23:03)
[2021-05-27] MEDS: IPRATROPIUM BR 0.02% INH SOLN 0.5 MG/2.5 ML VIAL INHALATION ×6 (00:31→19:03)
[2021-05-27] MEDS: ALBUTEROL SULFATE NEB 2.5 MG/0.5 ML INH INHALATION ×6 (00:31→19:03)
[2021-05-27 06:26] LABS: Hematocrit 41.7 % (42.0-52.0); Hemoglobin 13.2 g/dL (14.0-18.0); Mean Corpuscular HGB Conc 31.7 g/dl (32-36); Mean Corpuscular Hemoglobin 28.1 pg (26-34); Mean Corpuscular Volume 88.7 fl (80-100); Mean Platelet Volume 9.9 fl (7.4-10.4); Platelet Count Result 295 k/mm3 (150-375); Red Cell Distribution Width 13.5 % (11.5-14.5); White Blood Count 16.5 K/mm3 (4.5-10.0)
[2021-05-27 06:53] LABS: Anion Gap 7 mmol/L (8-16); Blood Urea Nitrogen 37 mg/dL (9-20); Calcium 9.5 mg/dL (8.4-10.2); Carbon Dioxide 32 mmol/L (22-30); Chloride 100 mmol/L (98-107); Estimated CRCL calculation 85 ml/min; Estimated Glomerular Filt Rate > 60; Glucose 183 mg/dL (65-110); Potassium 5.4 mmol/L (3.4-5.0); Sodium 139 mmol/L (137-145)
[2021-05-27 08:14] LABS: Glucose Point of Care 154 mg/dl (65-105)
[2021-05-27] MEDS: FLUTICASONE/UMECLIDIN/VILANTER 200-62.5-25 MCG ELLIPTA 1 PUFF INHALATION (08:36)
[2021-05-27] MEDS: PYRIDOXINE HCL 50 MG TABLET 250 MG PO (08:46)
[2021-05-27] MEDS: metFORMIN HCL 500 MG TABLET 1000 MG PO ×2 (08:46→17:41)
[2021-05-27] MEDS: ATORVASTATIN 20 MG TABLET PO (08:46)
[2021-05-27] MEDS: MULTIVITAMINS THERAPEUTIC TAB (*BKC) 1 TABLET PO (08:46)
[2021-05-27] MEDS: amLODIPine BESYLATE 5 MG TABLET 10 MG PO (08:46)
[2021-05-27] MEDS: ENOXAPARIN 40 MG/0.4 ML SYRINGE SUB-Q (08:46)
[2021-05-27] MEDS: ramipriL 5 MG CAPSULE 20 MG PO (08:47)
[2021-05-27] MEDS: FUROSEMIDE INJ 40 MG/4 ML VIAL IV PUSH (09:40)
--- NOTE | 2021-05-27 11:32 | PM.IMPN ---
Progress Note: A&P Assessment and Plan (1) Chronic respiratory failure with hypoxia, on home oxygen therapy: Code(s): J96.11 - Chronic respiratory failure with hypoxia; Z99.81 - Dependence on supplemental oxygen Status: Chronic Assessment and Plan: Admit to regular medical floor Breathing treatments q.4 hours Systemic steroids Continue oxygen supplementation for oxygen saturation in between 90-94% Continue to monitor 05/24/2021 interval history patient with history of COPD emphysema presented with a shortness of breath secondary to exacerbation of COPD concerning for pneumonia patient is being treated with methylprednisone, DuoNeb, azithromycin and ceftriaxone. patient states feeling better compared to when he arrived not a short of breath, patient with history of diabetes will resume home medication and monitor with sliding scale, will have PT OT evaluate the patient and further recommendation to follow. 05/25/2021 interval history patient with history of COPD emphysema presented with a shortness of breath secondary to exacerbation of COPD concerning for pneumonia patient is being treated with methylprednisone, DuoNeb, azithromycin and ceftriaxone. patient stats during day he does not any oxygen at home however patient is 2L at rest edith with activities, will CPM, plan is to wean patient off oxygen, will taper methylprednisone. patient states feeling better compared to when he arrived not a short of breath, patient with history of diabetes will resume home medication and monitor with sliding scale, will have PT OT evaluate the patient and further recommendation to follow. 05/26/2021 interval history patient with history of COPD emphysema presented with a shortness of breath secondary to exacerbation of COPD concerning for pneumonia patient is being treated with methylprednisone, DuoNeb, azithromycin and ceftriaxone. patient stats during day he does not use any oxygen at home however he was requring 4L with activities at home, patient is on 2L at rest and at night, will CPM, plan is to wean patient off oxygen, will taper methylprednisone. patient states feeling better compared to when he arrived not a short of breath, will order CXR, patient with history of diabetes will resume home medication and monitor with sliding scale, will have PT OT evaluate the patient and further recommendation to follow. 05/27/2021 interval history patient with history of COPD emphysema presented with a shortness of breath secondary to exacerbation of COPD concerning for pneumonia patient is being treated with methylprednisone, DuoNeb, azithromycin and ceftriaxone. patient stats during day he does not use any oxygen at home however he was requring 4L with activities at home, patient is on 2L at rest and at night, will CPM, plan is to wean patient off oxygen, will taper methylprednisone. patient states feeling better compared to when he arrived not a short of breath, however c/o swelling of his legs and his potassium is elevated, will give lasix 40mg IV, will order CXR, patient with history of diabetes will resume home medication and monitor with sliding scale, will have PT OT evaluate the patient and further recommendation to follow. (2) Obstructive sleep apnea: Code(s): G47.33 - Obstructive sleep apnea (adult) (pediatric) Status: Acute Assessment and Plan: Patient wears a L at nighttime by nasal cannula (3) Acute and chronic respiratory failure with hypoxia: Code(s): J96.21 - Acute and chronic respiratory failure with hypoxia Status: Acute Assessment and Plan: As above (4) Acute hypoxemic respiratory failure: Code(s): J96.01 - Acute respiratory failure with hypoxia Status: Acute Assessment and Plan: Likely secondary to COPD exacerbation Continue oxygen supplement Subjective Date/time seen: 05/27/21 11:32 05/27/2021 interval history patient with history of COPD emphysema pres
[2021-05-27 11:49] LABS: Glucose Point of Care 333 mg/dl (65-105)
[2021-05-27] MEDS: INSULIN ASPART (*BKC) 100 UNITS/ML SUB-Q ×2 (11:54→17:41)
[2021-05-27 16:46] LABS: Glucose Point of Care 264 mg/dl (65-105)
[2021-05-27] MEDS: INSULIN GLARGINE (*BKC) 100 UNITS/ML 17 UNITS SUB-Q (20:57)
[2021-05-27 21:03] LABS: Glucose Point of Care 240 mg/dl (65-105)
[2021-05-28] VITALS (16 sets, daily range): BP systolic 136–141; BP diastolic 48–67; PULSE 81–114; RESP 18–20; TEMP 36–36.3; O2SAT 86–100
[2021-05-28] MEDS: IPRATROPIUM BR 0.02% INH SOLN 0.5 MG/2.5 ML VIAL INHALATION ×3 (00:44→08:22)
[2021-05-28] MEDS: ALBUTEROL SULFATE NEB 2.5 MG/0.5 ML INH INHALATION ×3 (00:44→08:22)
[2021-05-28] MEDS: methylPREDNISolone SOD SUCC 125 MG VIAL 60 MG IV PUSH ×2 (05:10→11:25)
[2021-05-28 06:39] LABS: Hematocrit 40.7 % (42.0-52.0); Hemoglobin 12.6 g/dL (14.0-18.0); Mean Corpuscular Hemoglobin 27.3 pg (26-34); Mean Corpuscular Volume 88.1 fl (80-100); Platelet Count Result 283 k/mm3 (150-375); Red Blood Count 4.62 M/mm3 (4.6-6.20); Red Cell Distribution Width 13.4 % (11.5-14.5); White Blood Count 12.1 K/mm3 (4.5-10.0)
[2021-05-28 06:50] LABS: Anion Gap 6 mmol/L (8-16); Blood Urea Nitrogen 33 mg/dL (9-20); Carbon Dioxide 31 mmol/L (22-30); Chloride 100 mmol/L (98-107); Estimated CRCL calculation 85 ml/min; Estimated Glomerular Filt Rate > 60; Glucose 211 mg/dL (65-110); Potassium 4.9 mmol/L (3.4-5.0); Sodium 137 mmol/L (137-145)
[2021-05-28 07:41] LABS: Glucose Point of Care 217 mg/dl (65-105)
[2021-05-28] MEDS: INSULIN ASPART (*BKC) 100 UNITS/ML SUB-Q ×2 (08:03→11:55)
[2021-05-28] MEDS: ramipriL 5 MG CAPSULE 20 MG PO (08:05)
[2021-05-28] MEDS: MULTIVITAMINS THERAPEUTIC TAB (*BKC) 1 TABLET PO (08:05)
[2021-05-28] MEDS: metFORMIN HCL 500 MG TABLET 1000 MG PO (08:05)
[2021-05-28] MEDS: PYRIDOXINE HCL 50 MG TABLET 250 MG PO (08:06)
[2021-05-28] MEDS: amLODIPine BESYLATE 5 MG TABLET 10 MG PO (08:06)
[2021-05-28] MEDS: ATORVASTATIN 20 MG TABLET PO (08:06)
[2021-05-28] MEDS: ENOXAPARIN 40 MG/0.4 ML SYRINGE SUB-Q (08:07)
[2021-05-28] MEDS: ASPIRIN 81 MG ENTERIC TABLET PO (08:07)
[2021-05-28] MEDS: FLUTICASONE/UMECLIDIN/VILANTER 200-62.5-25 MCG ELLIPTA 1 PUFF INHALATION (08:23)
[2021-05-28] MEDS: FUROSEMIDE INJ 40 MG/4 ML VIAL IV PUSH (09:40)
--- NOTE | 2021-05-28 11:38 | PM.DS ---
DS: Admitting Diagnosis Discharge Date 05/28/2021 Admitting Diagnosis Shortness of breath DS: Discharge Diagnosis Discharge Diagnosis (1) Chronic respiratory failure with hypoxia, on home oxygen therapy: Code(s): J96.11 - Chronic respiratory failure with hypoxia; Z99.81 - Dependence on supplemental oxygen Status: Chronic Assessment and Plan: Admit to regular medical floor Breathing treatments q.4 hours Systemic steroids Continue oxygen supplementation for oxygen saturation in between 90-94% Continue to monitor 05/24/2021 interval history patient with history of COPD emphysema presented with a shortness of breath secondary to exacerbation of COPD concerning for pneumonia patient is being treated with methylprednisone, DuoNeb, azithromycin and ceftriaxone. patient states feeling better compared to when he arrived not a short of breath, patient with history of diabetes will resume home medication and monitor with sliding scale, will have PT OT evaluate the patient and further recommendation to follow. 05/25/2021 interval history patient with history of COPD emphysema presented with a shortness of breath secondary to exacerbation of COPD concerning for pneumonia patient is being treated with methylprednisone, DuoNeb, azithromycin and ceftriaxone. patient stats during day he does not any oxygen at home however patient is 2L at rest edith with activities, will CPM, plan is to wean patient off oxygen, will taper methylprednisone. patient states feeling better compared to when he arrived not a short of breath, patient with history of diabetes will resume home medication and monitor with sliding scale, will have PT OT evaluate the patient and further recommendation to follow. 05/26/2021 interval history patient with history of COPD emphysema presented with a shortness of breath secondary to exacerbation of COPD concerning for pneumonia patient is being treated with methylprednisone, DuoNeb, azithromycin and ceftriaxone. patient stats during day he does not use any oxygen at home however he was requring 4L with activities at home, patient is on 2L at rest and at night, will CPM, plan is to wean patient off oxygen, will taper methylprednisone. patient states feeling better compared to when he arrived not a short of breath, will order CXR, patient with history of diabetes will resume home medication and monitor with sliding scale, will have PT OT evaluate the patient and further recommendation to follow. 05/27/2021 interval history patient with history of COPD emphysema presented with a shortness of breath secondary to exacerbation of COPD concerning for pneumonia patient is being treated with methylprednisone, DuoNeb, azithromycin and ceftriaxone. patient stats during day he does not use any oxygen at home however he was requring 4L with activities at home, patient is on 2L at rest and at night, will CPM, plan is to wean patient off oxygen, will taper methylprednisone. patient states feeling better compared to when he arrived not a short of breath, however c/o swelling of his legs and his potassium is elevated, will give lasix 40mg IV, will order CXR, patient with history of diabetes will resume home medication and monitor with sliding scale, will have PT OT evaluate the patient and further recommendation to follow. (2) Obstructive sleep apnea: Code(s): G47.33 - Obstructive sleep apnea (adult) (pediatric) Status: Acute Assessment and Plan: Patient wears a L at nighttime by nasal cannula (3) Acute and chronic respiratory failure with hypoxia: Code(s): J96.21 - Acute and chronic respiratory failure with hypoxia Status: Acute Assessment and Plan: As above (4) Acute hypoxemic respiratory failure: Code(s): J96.01 - Acute respiratory failure with hypoxia Status: Acute Assessment and Plan: Likely secondary to COPD exacerbation Continue oxygen supplement DS: Summary Ho
[2021-05-28 11:48] LABS: Glucose Point of Care 326 mg/dl (65-105)
--- NOTE | 2021-05-28 12:45 | HOMEO2EVAL ---
Evaluation was performed at [facility] Home Oxygen Evaluation RC: Home Oxygen (O2) Evaluation Start: 05/28/21 08:27 Freq: ONCE Status: Active Protocol: RPE Activity Type Activity Date Activity User E-Sign Co-Sign Detail Recorded Client Recorded Date Recorded By Document 05/28/21 11:00 DJO [email or web address] 05/28/21 12:44 DJO Document 05/28/21 11:05 [email or web address] [email or web address] 05/28/21 12:44 DJO Document 05/28/21 11:10 [email or web address] [email or web address] 05/28/21 12:44 DJO Document 05/28/21 11:15 [email or web address] [email or web address] 05/28/21 12:44 DJO Document 05/28/21 11:25 [email or web address] [email or web address] 05/28/21 12:44 DJO 05/28/21 05/28/21 05/28/21 11:00 11:05 11:10 Home O2 Evaluation Test Phase Resting Exercise Exercise Oxygen Delivery Room Air Room Air Nasal Cannula Oxygen Flow Rate (L/min) 1 Pulse Oximetry (90-100 %) 92 86 L 88 L Pulse Rate (60-100 beats/min) 93 112 H 114 H Activity Tolerance Ambulation Distance (feet) Ambulation Distance (meters) Treatment Charges O2 Evaluation - Inpatient 05/28/21 05/28/21 11:15 11:25 Home O2 Evaluation Test Phase Exercise Resting Oxygen Delivery Nasal Cannula Room Air Oxygen Flow Rate (L/min) 2 Pulse Oximetry (90-100 %) 90 92 Pulse Rate (60-100 beats/min) 114 H 94 Activity Tolerance Good Ambulation Distance (feet) 750 Ambulation Distance (meters) 228.58 Treatment Charges
--- NOTE | 2021-05-28 12:45 | PCRCNOTE ---
HOME O2 EVAL COMPLETE, ROOM AIR REST, 2 LITERS WITH ACTIVITY. NO CHANGE FROM HOME SETTING. PT'S TO BRING IN TANK FOR DISCHARGE.
== END 2021-05-28 12:45 | disposition home or self-care (01) | DRG 190 ==
LOC: ANHED 22:38 → ANH3MEDSUR 05-24 12:46
PROVIDERS: Admitting Provider Internal Medicine; Emergency Provider Emergency Medicine; Visit Provider Family Medicine
DX: J44.1 Chronic obstructive pulmonary disease with (acute) exacerbation (principal); J18.9 Pneumonia, unspecified organism; J96.21 Acute and chronic respiratory failure with hypoxia; J44.0 Chronic obstructive pulmonary disease with (acute) lower respiratory infection; Z20.822 Contact with and (suspected) exposure to COVID-19; E11.42 Type 2 diabetes mellitus with diabetic polyneuropathy; G47.33 Obstructive sleep apnea (adult) (pediatric); E78.5 Hyperlipidemia, unspecified; I10 Essential (primary) hypertension; E66.9 Obesity, unspecified; Z68.34 Body mass index [BMI] 34.0-34.9, adult; Z99.81 Dependence on supplemental oxygen; Z87.891 Personal history of nicotine dependence; Z79.82 Long term (current) use of aspirin; Z79.84 Long term (current) use of oral hypoglycemic drugs
CPT/HCPCS: 36415; 71045; 71046; 80048; 80053; 82948; 83036; 83880; 84484; 85025; 85027; 87040; 93005; 94618; 94640; 96374; 97161; 97165; 99285; A9270; C9803; J0456; J0696; J1650; J1815; J1940; J2930; U0003; U0005

== ENCOUNTER 2021-08-02 02:27 | Inpatient (IN) | payer MEDICARE, OTHER, SELFPAY ==
[2021-08-02] VITALS (26 sets, daily range): BP systolic 113–140; BP diastolic 54–75; PULSE 90–120; RESP 14–22; TEMP 36.4–36.9; O2SAT 91–99
--- NOTE | ~2021-08-02 | XR_ITS ---
EXAMINATION: XR chest 1V portable DATE: 08/02/2021 03:14 INDICATION: Shortness of breath. TECHNIQUE: A single frontal view of the chest was obtained. COMPARISON: Chest 2 views 05/27/2021, CT 06/18/2021 FINDINGS: The patient is rotated to his right. There are airspace opacities in right mid and lower paula ng zones and left lower lung zone. No pleural effusion or pneumothorax. The heart size is normal. IMPRESSION: 1. Airspace opacities at right mid and lower lung zones and left lower lung zone, consistent with pul monary edema versus pneumonia. Reviewed, dictated and finalized at location [facility]. IMPRESSION: 1. Airspace opacities at right mid and lower lung zones and left lower lung zon e, consistent with pulmonary edema versus pneumonia.
--- NOTE | ~2021-08-02 | CT_ITS ---
EXAMINATION: CTA chest PE protocol DATE: 08/02/2021 12:57 INDICATION: Elevated d-dimer TECHNIQUE: Computed tomography angiography (CTA) of the chest was performed with 100 mL Omnipaque-350 intravenous contrast timed to evaluate the pulmonary arteries. Coronal maximum intensity projection 3D-reconstructions were created by the technologist. Automated exposure control and iterative reconst ruction technique were employed. Exam dose: 1116.95 mGy-cm total exam DLP. COMPARISON: August 02, 2021 portable AP chest FINDINGS: There is diagnostic contrast enhancement of the pulmonary arteries and no evidence of pulmo nary embolism. Normal heart size. No pericardial or pleural effusion. There is thoracic aortic and extensive coronary artery and great vessel calcifications. No thoracic a ortic aneurysm. There is prominent calcification at the aortic valve. Mitral annular calcifications. Calcified left hilar and subcarinal nodes and calcified hepatic and splenic granulomas, consistent wi th old granulomatous disease. No hilar or mediastinal mass lesion or lymphadenopathy. There is patchy right upper lobe and lesser focal atelectasis in the left upper lobe infiltrate. Ther e is one focal area of consolidation or possible mass measuring 7 x 9 mm in the right upper lobe (ser ies 4 image 46); follow-up imaging is recommended to ensure clearing of this area in order to exclude any lung mass lesion. There is bilateral predominantly dependent lower lobe atelectasis. Normal morphology of the adrenal glands. There is extensive calcification of the abdominal aorta and renal arteries as well as prominent calci fication at the origin the celiac artery and extensive superior mesenteric artery calcification. Degenerative spurring of the thoracic spine. No suspicious osteolytic or osteoblastic lesions are not ed. IMPRESSION: No evidence of pulmonary embolism Patchy bilateral upper lobe infiltrates, right greater than left Focal 7 x 9 mm area of probable consolidation in the lateral right upper lobe versus less likely pulm onary mass lesion. Continued follow-up is recommended to ensure clearing in order to exclude any lung mass lesion. Bilateral lower lobe atelectasis Extensive thoracic and abdominal aortic, great vessel and coronary atherosclerosis Reviewed, dictated and finalized at [facility]. Reviewed, dictated and finalized at location [facility]. IMPRESSION: No evidence of pulmonary embolism Patchy bilateral upper lobe infiltrates, right greater than left Focal 7 x 9 mm area of probable consolidation in the lateral right upper lobe v ersus less likely pulmonary mass lesion. Continued follow-up is recommended to ensure clearing in order to exclude any lung mass lesion. Bilateral lower lobe atelectasis Extensive thoracic and abdominal aortic, great vessel and coronary atherosclero sis
--- NOTE | 2021-08-02 02:33 | ECG_ITS ---
Measurements Intervals [place] Rate: 115 P: 35 ME: 163 QRS: 50 QRSD: 93 T: 51 QT: 307 QTc: 426 Interpretive Statements SINUS TACHYCARDIA WITH OCCASIONAL SUPRAVENTRICULAR PREMATURE COMPLEXES MILD ST DEPRESSION IN THE LATERAL LEADS COMPARED TO ECG 05/24/2021 09:51:[address] CHANGE NOW PRESENT Electronically Signed On 08-02-2021 20:48:40 CDT by Susana Bautista M.D.
[2021-08-02 02:52] LABS: Basophils Absolute Auto 0.1 K/mm3 (0.0-0.1); Basophils Percent Auto 0.4 % (0.2-1.2); Eosinophils Absolute Auto 0.2 K/mm3 (0-0.3); Eosinophils Percent Auto 1.3 % (0-4.4); Hematocrit 40.1 % (42.0-52.0); Hemoglobin 11.7 g/dL (14.0-18.0); Immature Granulocyte Absolute 0.05 K/mm3 (0.00-0.031); Immature Granulocyte Percent A 0.4 % (0-0.5); Lymphocytes Percent Auto 13.6 % (18.3-44.2); Mean Corpuscular HGB Conc 29.2 g/dl (32-36); Mean Corpuscular Hemoglobin 28.1 pg (26-34); Mean Corpuscular Volume 96.4 fl (80-100); Monocytes Absolute Auto 1.8 K/mm3 (0.1-0.6); Monocytes Percent Auto 14.9 % (2.6-8.5); Neutrophils Absolute Auto 8.2 K/mm3 (1.3-6.7); Neutrophils Percent Auto 69.4 % (45.5-73.1); Platelet Count Result 312 k/mm3 (150-375); Red Blood Count 4.16 M/mm3 (4.6-6.20); Red Cell Distribution Width 13.8 % (11.5-14.5); White Blood Count 11.8 K/mm3 (4.5-10.0)
[2021-08-02 02:56] LABS: Alveolar/Arterial O2 Gradient 178.7 mmHg; Fractional Inspired Oxygen 44 %; HCO3 ABG 27.8 mEq/l (22.0-26.0); Modified Allen's Test Pass; Oxygen Content ABG 16.7 %vol (16.0-22.0); Oxygen Saturation ABG 93.6 % (95.0-100.0); Oxyhemoglobin 93.4 % THb (90.0-100.0); PCO2 ABG 53.9 mmHg (35.0-45.0); PO2 ABG 73.6 mmHg (80.0-100.0); PO2 FiO2 Ratio Arterial Blood 1.67 %; Site Drawn RIGHT RADIAL; Total Hemoglobin 12.7 g/dL (12.0-18.0); pH ABG 7.331 (7.350-7.450)
[2021-08-02 02:57] LABS: Device NASAL CANNULA
[2021-08-02 03:21] LABS: Troponin I 0.045 ng/mL (0.000-0.034)
[2021-08-02] MEDS: FUROSEMIDE INJ 40 MG/4 ML VIAL IV PUSH (03:40)
[2021-08-02 03:47] LABS: Alanine Aminotransferase 14 U/L (4-50); Alkaline Phosphatase 81 U/L (38-126); Anion Gap 8 mmol/L (8-16); Aspartate Amino Transferase 22 U/L (17-59); Bilirubin,Total 0.5 mg/dL (0.2-1.3); Blood Urea Nitrogen 21 mg/dL (9-20); Calcium 8.8 mg/dL (8.4-10.2); Carbon Dioxide 31 mmol/L (22-30); Chloride 99 mmol/L (98-107); Estimated CRCL calculation 93 ml/min; Estimated Glomerular Filt Rate > 60; Glucose 216 mg/dL (65-110); Potassium 4.3 mmol/L (3.4-5.0); Sodium 138 mmol/L (137-145)
[2021-08-02 03:56] LABS: NT Pro B Type Natriuretic Pept 608 pg/mL (5-100)
--- NOTE | 2021-08-02 03:58 | ED.SOB ---
HPI - SOB/Dyspnea General Chief Complaint: Shortness of Breath/Dyspnea Stated Complaint: difficulty breathing since yesterday Time Seen by Provider: 08/02/21 02:31 Source: patient Mode of arrival: EMS Limitations: no limitations History of Present Illness HPI Narrative: 64-year-old with a history of COPD on 7 L of home O2, diabetes, hypertension, obstructive sleep apnea here with complaints of shortness of breath for last 3 to 4 days. Patient states this evening his symptoms got worse. He states he has occasional cough which is nonproductive. No history of fever or chills. He denies any chest pain. No history of nausea or vomiting or abdominal pain. MD elicited complaint: shortness of breath and cough Pertinent past history: COPD Onset (ago): day(s) (3) Timing: constant Severity: moderate Exacerbating factors: nothing Relieving factors: oxygen and bronchodilators Known history of: COPD Associated symptoms: denies other symptoms Treatment prior to arrival: none Related Data Home oxygen amount: other (7 lts) Home Medications Medication Instructions Recorded Confirmed ramipril [Altace] 20 mg PO DAILY 05/11/20 06/27/21 aspirin 81 mg PO EVERY OTHER DAY 08/06/20 06/27/21 multivitamin 100 tablet PO DAILY 08/14/20 06/27/21 pyridoxine (vitamin B6) 250 mg 250 mg PO DAILY 08/14/20 06/27/21 tablet albuterol sulfate [ProAir HFA] 2 inh INHALATION Q4H PRN 05/24/21 06/27/21 amlodipine 08/02/21 atorvastatin 08/02/21 [id number] INHALATION 08/02/21 [Trelegy Ellipta] furosemide 08/02/21 ipratropium bromide 08/02/21 metformin mg 08/02/21 Allergies Allergy/AdvReac Type Severity Reaction Status Date / Time naproxen Allergy Unknown Hives / Verified 08/02/21 02:46 Red Face Review of Systems Review of Systems: All systems reviewed & are unremarkable except as noted in HPI and below Constitutional: Constitutional: Reports no additional constitutional complaints Eyes: Eyes: Reports no additional eye complaints ENT: Reports system reviewed and no additional complaints, except as documented Cardiovascular: Cardiovascular: Reports no additional cardiovascular complaints Respiratory: Respiratory: Reports as per HPI Gastrointestinal: Gastrointestinal: Reports no additional gastrointestinal complaints Musculoskeletal: Musculoskeletal: Reports no additional musculoskeletal complaints Integumentary/Breasts: Skin/Breast: Reports system reviewed and no additional complaints, except as docu Neurologic: Reports system reviewed and no additional complaints, except as documented PMFSH Past Medical History Medical History Anxiety Chronic obstructive pulmonary disease Chronic respiratory failure with hypoxia, on home oxygen therapy Patient wears 4 L nasal cannula during the day. Diabetic peripheral neuropathy Former smoker Patient smoked anywhere from 0.5 to 2 packs of cigarettes per day. Hyperlipidemia Hypertension Type 2 diabetes mellitus Hemoglobin A1c was 6.8% on 05/14/2020. Surgical History Surgical History History of abdominal surgery As an . Patient is a poor historian regarding this surgery but does have a midline abdominal scar. History of colonoscopy with polypectomy Family History Family History Father Acute myocardial infarction, Onset Age: 50 Social History Social History Social History: The patient is and lives with his in [place]. Retired from [employer]. He smoked 0.5 to 2 packs of cigarettes per day for many years and quit about 5 years ago. 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 No illicit substance use. He designates his Arlene as his surrogate decision maker a
[2021-08-02 04:15] LABS: SARS-CoV-2 RNA PCR Negative
--- NOTE | 2021-08-02 05:35 | ADMGEN ---
This patient, Fadi Greenwood, was admitted to IMU Room 206-01 at 0520 08/02/2021. Patient/family oriented to hospital policies and general routines including ID bracelet, bed and alarms, visiting hours, pain management, procedures, bathroom and other care routines, personal items, smoking policy, room service/diet, and visiting hours. Information on how to activate the Rapid Response Team has been discussed. Patient/Family are encouraged to report perceived risks to care and to ask questions if they do not understand what they are told or what they should do.
[2021-08-02] MEDS: methylPREDNISolone SOD SUCC 125 MG VIAL 60 MG IV PUSH (05:57)
[2021-08-02 07:55] LABS: Troponin I 0.702 ng/mL (0.000-0.034)
[2021-08-02] MEDS: ALBUTEROL SULFATE NEB 2.5 MG/0.5 ML INH 5 MG INHALATION (08:40)
[2021-08-02] MEDS: IPRATROPIUM BR 0.02% INH SOLN 0.5 MG/2.5 ML VIAL INHALATION ×4 (08:40→20:48)
--- NOTE | 2021-08-02 09:06 | ECHO_ITS ---
Patient Info Name: Fadi Greenwood Age: 65 years : 1955 Gender: Male Ht: 72 in Wt: 246 lbs BSA: 2.41 m2 HR: 103 bpm BP: 131 / 66 mmHg Heart Rhythm: Sinus Rhythm Exam Date: 08/02/2021 9:52 AM Exam Location: [facility] Patient Status: Inpatient Admit Date: 08/02/2021 Staff Ordering Physician: Tone Sanchez MD Cyber Incident Handler: Avinash Burnham, KENNEDY, RT Attending Provider: Haley Mcdowell MD Referring Physician: Daniel CHARLES; Exam Type: CA echo dop bubble study w con Study Info Indications J96.20 - Acute and chronic respiratory failure, unspecified whether with hypoxia or hypercapnia Complete two-dimentional, color flow and Doppler transthoracic echocardiogram is performed with agitated saline and with contrast to opacify the left ventricle and to improve the delineation of the left ventricle endocardial borders. Summary 1. Ventricular size with [id number] concentric hypertrophy. Overall good left ventricular systolic function with estimated ejection fraction is 60-65%. However, the apex, apical inferior and apical anterior segments were mildly hypokinetic with moderate hypokinesis of the mid and distal septum. Grade 2 diastolic dysfunction was noted. 2. Left atrial chamber dimension is moderately enlarged. 3. The otic valve is heavily calcified. There is severe aortic valve stenosis with a peak velocity of 408 cm/s, mean gradient of 38 mmHg, and aortic valve area of 1.0 cm2. 4. There is severe mitral annular calcification thickened mitral valve and moderate mitral valve stenosis with a mean gradient of 12 mmHg and mitral valve area 1.6 cm2. Mild to moderate mitral regurgitation is present as well. 5. There is mild tricuspid valve regurgitation. 6. Severe pulmonary hypertension, estimated pulmonary arterial systolic pressure is 65 mmHg. 7. Dilated inferior vena cava with >50% collapse upon inspiration consistent with normal right atrial pressure, 15 mmHg. 8. The Sinus of Valsalvaborderline dilated, 3.9 cm.. 9. The atrial septum appears intact. Bubble study is negative during normal respiration and Valsalva for intracardiac shunting. 10. Normal sinus rhythm. Left Ventricle Left ventricular chamber dimension is normal. Left ventricular systolic function is normal, estimated at 60-65%. There is mildly increased left ventricular wall thickness. Left ventricular septal wall motion is normal. The left ventricular diastolic function is grade II diastolic dysfunction. Right Ventricle Right ventricular chamber dimension is normal. Right ventricular systolic function is normal. Left Atria Left atrial chamber dimension is moderately enlarged. Right Atria Right atrial chamber dimension is normal. Aortic Valve The aortic valve is trileaflet. There is no aortic valve sclerosis. The otic valve is heavily calcified. There is severe aortic valve stenosis with a peak velocity of 408 cm/s, mean gradient of 38 mmHg, and aortic valve area of 1.0 cm2. There is no aortic valve regurgitation. There is severe aortic valve calcification. Pulmonic Valve The pulmonic valve is normal. There is no pulmonic valve stenosis. There is no pulmonic regurgitation. Mitral Valve The mitral valve has normal leaflets. There is severe mitral annular calcification thickened mitral valve and moderate mitral valve stenosis with a mean gradient of 12 mmHg and mitral valve area 1.6 cm2. Mild to moderate mitral regurgitation is present as well. There is mild to moderate mitral valve regurgitation. The mi
--- NOTE | 2021-08-02 09:45 | PM.CNPUL ---
Assessment and Plan Assessment and plan (1) Acute exacerbation of chronic obstructive airways disease: Code(s): J44.1 - Chronic obstructive pulmonary disease with (acute) exacerbation Status: Acute Assessment and Plan: Gold group D COPD (49 PY, quit 2018, no PFT in last 10 years as syncope with PFTs 10 years ago), chronic hypoxemic and hypercarbic respiratory failure on room air at rest, 2 L with activity and 8 L at night was unable to tolerate any CPAP or BiPAP mask for his hypercarbic respiratory failure maintained on triple inhalers and unable to afford daliresp. currently patient comes in with 2 day history of increasing shortness of breath, fatigue, worsening hypoxemia, increasing need for short-acting beta agonists rescue and waking up early this morning with severe shortness of breath, gasping for air and worsening hypoxemia that improved when EMS treated him with a nebulizer and the ED treated him with bronchodilators, Lasix and steroids. Of note patient has a positive troponin. I will continue treating this for COPD exacerbation and will decrease his Solu-Medrol from 60 Q 6-40 q.6. I will continue albuterol nebulizers 2.5 mg q.4 hours and ipratropium nebulizers 0.5 mg q.4 hours. Currently he has no wheezing. Regarding concurrent issues that may be causing his shortness of breath he has a positive D-dimer at 3.84 and I will proceed with a CT angiogram of the chest as long as there is no plan for cardiac catheterization today given his positive troponins. I am awaiting a call back from the cardiology team. I will send blood cultures x2. I have sent a sputum for Gram stain and culture, is COVID RT PCR study is negative. He has had worsening cough with minimal phlegm production since his last outpatient exacerbation in which he was treated with Levaquin and previous exacerbations this year which he was treated with azithromycin. He was admitted to the hospital in May and I will initiate treatment for resistant organisms with vancomycin and Zosyn for now. (2) Acute on chronic respiratory failure with hypoxia and hypercapnia: Code(s): J96.21 - Acute and chronic respiratory failure with hypoxia; J96.22 - Acute and chronic respiratory failure with hypercapnia Status: Acute Assessment and Plan: patient has chronic hypercarbic and hypoxemic respiratory failure from his COPD. The patient would benefit from noninvasive ventilation but he states he cannot tolerate CPAP or BiPAP mask. I have talked to him multiple times in the clinic about this. Will again talked to him to see if we could try desensitization while he is in the hospital to see if he could tolerate a positive airway pressure therapy. Currently patient is on 5 L nasal cannula with saturations 97%. (3) Obstructive sleep apnea: Code(s): G47.33 - Obstructive sleep apnea (adult) (pediatric) Status: Acute Assessment and Plan: patient has untreated obstructive sleep apnea. Split night sleep study on 10/12/2020 demonstrating an AHI of 50.6. CPAP titration was increased to 9 and he still had obstructive events and the recommendation was to send him home with CPAP 10 with 2 L bleed in and follow his AHI on the download. He can't tolerate CPAP. (4) Elevated troponin I level: Code(s): R77.8 - Other specified abnormalities of plasma proteins Status: Acute Assessment and Plan: patient's troponin have increased from 0.045 to 0.702 to 1.320. Clinically he is stable and has had no chest pain throughout this episode. I have called cardiology and waiting for a call back regarding there evaluation. His BNP was elevated at 608 and he was given Lasix 40 in the emergency department and said he urinated once. No evidence of fluid overload on my exam currently. he sees an outpatient cardiology team at [facility] telephone [phone] and were trying to get the last 2 office visits notes. He was being geovanna
[2021-08-02 09:49] LABS: D Dimer 3.84 ug/mL (<0.48)
[2021-08-02 09:58] LABS: Glucose Point of Care 418 mg/dl (65-105)
[2021-08-02] MEDS: INSULIN ASPART (*BKC) 100 UNITS/ML SUB-Q ×2 (10:01→17:16)
[2021-08-02] MEDS: ASPIRIN 81 MG CHEWABLE TABLET PO (10:05)
--- NOTE | 2021-08-02 10:16 | PM.CNCAR ---
Assessment and Plan Assessment and plan (1) Elevated troponin: Code(s): R77.8 - Other specified abnormalities of plasma proteins Status: Acute Assessment and Plan: Unclear if the patient has elevated troponins are secondary to a NSTEMI/ACS event, or a type 2 IN secondary to respiratory failure. No typical anginal chest pain and a few days of shortness of breath and cough argue toward a COPD exacerbation. On the other hand he was not particularly hypoxic and his ABGs were not particularly bad in the emergency room. Does have some slight ST depression on his EKG. No known coronary disease. He is feeling better now. Discussed approach with Dr. Sanchez. Dr. Sanchez will proceed with a CTA of the chest as he is suspicious of pulmonary emboli Will obtain more records from [facility] Ischemia evaluation tomorrow; unsure if that will be a cardiac catheterization or Estefany at this point Repeat EKG Heparin drip in the meantime Echo pending (2) Acute on chronic respiratory failure with hypoxia and hypercapnia: Code(s): J96.21 - Acute and chronic respiratory failure with hypoxia; J96.22 - Acute and chronic respiratory failure with hypercapnia Status: Acute Assessment and Plan: Long history of COPD on home O2, Evaluated by Dr. Sanchez (3) Aortic stenosis: Code(s): I35.0 - Nonrheumatic aortic (valve) stenosis Status: Acute Assessment and Plan: Moderate to severe aortic stenosis in April 2021. (4) Mitral stenosis: Code(s): I05.0 - Rheumatic mitral stenosis Status: Acute Assessment and Plan: May have some mitral stenosis; echo pending History of Present Illness History of Present Illness Consult date/time: 08/02/21 10:16 Requesting physician: Hero Boateng MD Consult reason: Other (elev troponin) Reason For Visit: copd, chf Narrative: Fadi Greenwood is a 65 y.o. WM whom I was asked to see for my advice and opinion regarding his elevated troponins, in consultation.4 days. The patient has a history of COPD on home O2, diabetes, hypertension, untreated sleep apnea. He has had of 2 days of increasing shortness of breath and cough. No PND orthopnea, no recent edema. He went to bed short of breath and woke up extremely short of breath, thinking he was going to . He increased his oxygen to 9, took 2 shots of albuterol, called EMS. He rec'd nebs and steroids in the field and came to the emergency room. His O2 sats were in the low 90s, and his ABG was not much different from his prior ABGs though he had tachycardia. He was described as not being any acute distress with fairly clear lung sounds on admission to the ER. He denies any chest pain pressure tightness or discomfort the neck jaw or shoulders. Troponins were 0.045, 0.70 and 1.3. ProBNP was 608. Chest x-ray as below. The patient can not tell me much about his cardiac history. He is followed by Dr. Emmett Singh for his aortic stenosis and diastolic heart failure. Last seen 03/2021, stable and feeling well.Echo fr [facility] 04/2021 showed mod to severe aortic stenosis, peak AV velocity 3.6 m/sec, mean grad 28 mmHg, valve area 0.8 cm2. Mild to moderate mitral stenosis. He also sees Dr. Zeus Acevedo for his peripheral vascular disease. No known heart failure, heart attack. Review of Systems Constitutional: Constitutional: Reports fatigue Eyes: Eyes: Reports no additional eye complaints ENT: Denies epistaxis Cardiovascular: Cardiovascular: Denies chest pain and Reports pedal edema (occasionally) Respiratory: Respiratory: Reports chest congestion, Reports cough, Reports dyspnea, Reports dyspnea on exertion and Reports wheezing Gastrointestinal: Gastrointestinal: Denies abdominal pain and Reports hematochezia Genitourinary: Genitourinary: Denies hematuria Musculoskeletal: Musculoskeletal: Reports no additional musculoskeletal complaints Integumentary/Breasts: Skin/Breast: Denies rash Neurologic: Denies c
[2021-08-02] MEDS: PERFLUTREN LIPID MICROSPHERES 1.5 ML VIAL DILUTED TO 10 ML TOTAL VOLUME IV PUSH (10:56)
--- NOTE | 2021-08-02 10:57 | IVDEFINITY ---
Prior to administration of IV Definity the patient was educated on the risks and benefits of the imaging enhancing agent including potential adverse side effects. The patient verbalized understanding. Allergies were verified. No exclusion criteria were identified and at least one of the following inclusion criteria were met: 1) physician request, 2) patient technically difficult to image (per the [place] [employer] guidelines of two or more segments not discernable within the apical view), or 3) questionable left ventricular function. ?
[2021-08-02 11:11] LABS: INR 1.1; Partial Thromboplastin Time 35.5 SECONDS (22.3-36.8); Prothrombin Time 13.7 Seconds (11.1-14.7)
[2021-08-02 11:15] LABS: Basophils Percent Auto 0.1 % (0.2-1.2); Hematocrit 40.6 % (42.0-52.0); Immature Granulocyte Absolute 0.02 K/mm3 (0.00-0.031); Immature Granulocyte Percent A 0.3 % (0-0.5); Lymphocytes Absolute Auto 0.42 K/mm3 (0.9-3.2); Lymphocytes Percent Auto 5.3 % (18.3-44.2); Mean Corpuscular HGB Conc 29.6 g/dl (32-36); Mean Corpuscular Hemoglobin 27.8 pg (26-34); Mean Corpuscular Volume 94.2 fl (80-100); Mean Platelet Volume 9.8 fl (7.4-10.4); Monocytes Absolute Auto 0.2 K/mm3 (0.1-0.6); Monocytes Percent Auto 2.2 % (2.6-8.5); Neutrophils Absolute Auto 7.3 K/mm3 (1.3-6.7); Neutrophils Percent Auto 92.1 % (45.5-73.1); Platelet Count Result 291 k/mm3 (150-375); Red Blood Count 4.31 M/mm3 (4.6-6.20); Red Cell Distribution Width 13.6 % (11.5-14.5); White Blood Count 7.9 K/mm3 (4.5-10.0)
[2021-08-02 11:39] LABS: Platelet Estimate Adequate (Adequate)
[2021-08-02 11:40] LABS: Anisocytosis 1+ (NORMAL); Hypochromasia 1+ (NORMAL); Poikilocytosis 1+ (NORMAL)
[2021-08-02] MEDS: HEPARIN SOD/D5W 100 UNITS/ML 25,000 UNITS/250 ML BAG 10 UNITS IV CONT (11:45)
--- NOTE | 2021-08-02 11:46 | PM.IMHP ---
H&P: HPI History of Present Illness Date/Time: 08/02/21 11:46 Chief Complaint: Shortness of breath Narrative: 65yo male with COPD and chronic respirator failure here for shortness of breath. Patient where 7 L of oxygen when sleeping, 2 L with activity and is on room air at rest at baseline. He is on Trelegy inhaler which was started few months ago. He has albuterol HFA that he barely uses when he feels well. He does have albuterol nebulizer available as well. He is up-to-date on his influenza vaccine. He has had 3 COVID vaccines with his last 1 on 03/15/2021. He exercises regularly 5 days a week on a treadmill for 10-12 minutes. He does not use oxygen when he exercises and his pulse ox runs 88-91%. He is retired from a [employer] and was exposed to toulene. 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 Patient normally has COPD flares once a year but last year he had up to 6 flares requiring steroids and hospitalized at least 3 times. He has never been intubated. His last flare was 2 months ago and was discharged on 05/28/2021 with nebulizer treatments and prednisone. Patient called in to the pulmonary doctors office on 07/04/2021 with complaints of cough productive yellow mucus and shortness of breath. He was treated with Levaquin and prednisone. Patient has noted that since that treatment he has noted persistent cough productive of thick white sputum without change. His incentive spirometry was 3000 prior to the Levaquin/prednisone but now only gets up to 1500. Patient denies any history of seasonal allergies. He does have sleep apnea but cannot tolerate BiPAP. He has 2 pillow orthopnea which is chronic. He has no history of CHF or coronary disease that he is aware of but there was concern for this. He was feeling well until 2 days prior to admission when he had increasing shortness of breath. His symptoms worsened and he was having trouble walking room to room without feeling short of breath. Symptoms seem to improve with inhaler. Yesterday he began to use 2 L of oxygen at rest. He did not use his nebulizers but did continue the albuterol inhaler. In the drapery cutter machine hours of admission, patient was awoken or shortness of breath. He turned his oxygen up to 9 L. he tried inhaler with minimal benefit but EMS was contacted. He denies any fever chills. He has a persistent cough productive of whitish thick sputum. No odynophagia or dysphagia. No chest pain. No hemoptysis. No abdominal or urinary symptoms. No pedal edema. No calf pain at rest. He does have calf pain with activity on the treadmill but has had lower extremity arterial imaging which showed only minimal PAD per patient. Patient was brought to the emergency room for evaluation. Emergency room, patient was tachycardic at 118 and SpO2 was 91% on 6 L high-flow nasal cannula. ABG showed 7.33/59/74. BNP was 600. Troponin climbed to 1.3. EKG showed sinus tachycardia rate 115. Chest x-ray showed airspace opacities in the right mid and lower lung zones as well as left lower lung zone consider pulmonary edema versus pneumonia. Patient was treated with IV Lasix x1. He was started on Solu-Medrol and nebulizer treatments. Aspirin was started. Was admitted for further care. Cardiology and Pulmonary have been consulted. Review of Systems Review of Systems: All systems reviewed & are unremarkable except as noted in HPI and below PMFSH Past Medical History Medical History Anxiety Aortic stenosis Chronic obstructive pulmonary disease Chronic respiratory failure with hypoxia, on home oxygen therapy Diabetic peripheral neuropathy Former smoker Patient smoked anywhere from 0.5 to 2 packs of cigarettes per day. Hyperlipidemia Hypertension Mitral stenosis ARCHANA (obstructive sleep apnea) PAD (peripheral artery disease) Type 2 diabetes mellitus Hemoglobin A1c was 6.8% on 05/14/2020. Surgical History Surgic
[2021-08-02 11:54] LABS: Glucose Point of Care 456 mg/dl (65-105)
[2021-08-02] MEDS: INSULIN ASPART (*BKC) 100 UNITS/ML 12 UNITS SUB-Q (12:15)
[2021-08-02] MEDS: methylPREDNISolone SOD SUCC 40 MG VIAL IV PUSH ×3 (12:25→23:48)
[2021-08-02] MEDS: ALBUTEROL SULFATE NEB 2.5 MG/0.5 ML INH INHALATION ×3 (13:03→20:48)
--- NOTE | 2021-08-02 14:44 | ECG_ITS ---
Measurements Intervals [place] Rate: 89 P: -56 PA: 137 QRS: 53 QRSD: 104 T: 56 QT: 347 QTc: 423 Interpretive Statements SINUS RHYTHM WITH MARKED SINUS ARRHYTHMIA COMPARED TO ECG 08/02/2021 02:35:56 SINUS RHYTHM NOW PRESENT SINUS ARRHYTHMIA NOW PRESENT Electronically Signed On 08-02-2021 20:56:23 CDT by Susana Bautista M.D.
[2021-08-02 16:37] LABS: Glucose Point of Care 385 mg/dl (65-105)
[2021-08-02 18:23] LABS: Partial Thromboplastin Time 41.2 SECONDS (22.3-36.8)
[2021-08-02] MEDS: HEPARIN SODIUM 5,000 UNITS/ML VIAL 4000 UNITS IV PUSH (18:43)
[2021-08-02 19:02] LABS: Influenza Control Positive
[2021-08-03] VITALS (26 sets, daily range): BP systolic 103–146; BP diastolic 50–62; PULSE 92–111; RESP 13–19; TEMP 36–37; O2SAT 93–100
[2021-08-03 00:02] LABS: Glucose Point of Care 370 mg/dl (65-105)
[2021-08-03] MEDS: IPRATROPIUM BR 0.02% INH SOLN 0.5 MG/2.5 ML VIAL INHALATION ×6 (00:12→19:52)
[2021-08-03] MEDS: ALBUTEROL SULFATE NEB 2.5 MG/0.5 ML INH INHALATION ×6 (00:12→19:52)
[2021-08-03 05:10] LABS: Basophils Percent Auto 0.3 % (0.2-1.2); Hematocrit 36.4 % (42.0-52.0); Hemoglobin 10.8 g/dL (14.0-18.0); Immature Granulocyte Absolute 0.05 K/mm3 (0.00-0.031); Immature Granulocyte Percent A 0.5 % (0-0.5); Lymphocytes Absolute Auto 0.79 K/mm3 (0.9-3.2); Lymphocytes Percent Auto 7.5 % (18.3-44.2); Mean Corpuscular HGB Conc 29.7 g/dl (32-36); Mean Corpuscular Volume 94.3 fl (80-100); Monocytes Absolute Auto 0.8 K/mm3 (0.1-0.6); Monocytes Percent Auto 7.5 % (2.6-8.5); Neutrophils Absolute Auto 8.9 K/mm3 (1.3-6.7); Neutrophils Percent Auto 84.2 % (45.5-73.1); Platelet Count Result 296 k/mm3 (150-375); Red Blood Count 3.86 M/mm3 (4.6-6.20); Red Cell Distribution Width 13.4 % (11.5-14.5); White Blood Count 10.6 K/mm3 (4.5-10.0)
[2021-08-03 05:32] LABS: Alanine Aminotransferase 17 U/L (4-50); Albumin Level 3.7 g/dL (3.5-5.1); Alkaline Phosphatase 60 U/L (38-126); Anion Gap 8 mmol/L (8-16); Aspartate Amino Transferase 38 U/L (17-59); Bilirubin,Total 0.3 mg/dL (0.2-1.3); Blood Urea Nitrogen 26 mg/dL (9-20); Calcium 8.5 mg/dL (8.4-10.2); Carbon Dioxide 32 mmol/L (22-30); Chloride 94 mmol/L (98-107); Estimated CRCL calculation 93 ml/min; Estimated Glomerular Filt Rate > 60; Glucose 373 mg/dL (65-110); Magnesium 1.8 mg/dL (1.6-2.3); Phosphorus 3.5 mg/dL (2.5-4.5); Potassium 4.6 mmol/L (3.4-5.0); Sodium 134 mmol/L (137-145)
[2021-08-03 05:35] LABS: Anisocytosis 1+ (NORMAL); Platelet Estimate Adequate (Adequate); Poikilocytosis 1+ (NORMAL)
[2021-08-03] MEDS: methylPREDNISolone SOD SUCC 40 MG VIAL IV PUSH (06:01)
[2021-08-03] MEDS: ATORVASTATIN 20 MG TABLET PO (08:28)
[2021-08-03] MEDS: FUROSEMIDE 20 MG TABLET PO (08:28)
[2021-08-03] MEDS: MULTIVITAMINS THERAPEUTIC TAB (*BKC) 1 TABLET PO (08:28)
[2021-08-03] MEDS: ENOXAPARIN 40 MG/0.4 ML SYRINGE SUB-Q (08:28)
[2021-08-03] MEDS: FLUTICASONE/UMECLIDIN/VILANTER 200-62.5-25 MCG ELLIPTA 1 PUFF INHALATION (08:28)
[2021-08-03] MEDS: PYRIDOXINE HCL 50 MG TABLET 250 MG PO (08:28)
[2021-08-03] MEDS: ramipriL 5 MG CAPSULE 20 MG PO (08:28)
[2021-08-03] MEDS: ASPIRIN 81 MG CHEWABLE TABLET PO (08:28)
[2021-08-03 08:58] LABS: Glucose Point of Care 335 mg/dl (65-105)
[2021-08-03] MEDS: MAGNESIUM OXIDE 400 MG TABLET PO (09:41)
[2021-08-03] MEDS: INSULIN ASPART (*BKC) 100 UNITS/ML SUB-Q ×3 (09:41→17:10)
--- NOTE | 2021-08-03 10:51 | PM.IMPN ---
Progress Note: A&P Assessment and Plan (1) Acute on chronic respiratory failure with hypoxia and hypercapnia: Code(s): J96.21 - Acute and chronic respiratory failure with hypoxia; J96.22 - Acute and chronic respiratory failure with hypercapnia Status: Acute Assessment and Plan: Patient with acute respiratory distress in the field and hypoxic in ED up to 6L O2 but condition had improved (nmlly on room air at rest). He has chronic hypoxia with sleep and with activity but is on room air at rest. His pCO2 was elevated at 54 which is chronic related to his COPD and untreated ARCHANA. COVID and influenza swab was negative. CXR showing multilobar airspace disease. Respiratory symptoms related to COPD exacerbation but cannot exclude underlying cardiac ischemia contributing to this. Consider CHF as well possibly related to his valvular disease. Would also consider pneumonia given his persistent cough although this seems to be more chronic. No other clinical evidence of pneumonia. CTA chest showed no PE but patchy bilateral upper lobe infiltrates, 9mm consolidation in RUL and extensive atherosclerosis. Treated with Lasix x1, Solu-Medrol and neb treatments. His oxygen requirement has improved. Continue IV antibiotics and agree about changing to different regiment to avoid RAVIN. Wean steroids. (2) Chronic obstructive pulmonary disease: Code(s): J44.9 - Chronic obstructive pulmonary disease, unspecified Status: Chronic Assessment and Plan: Patient COPD with exacerbation. This could have been triggered by underlying cardiac ischemia or from his valvular disease or PNA. He denies any chest pain prior to admission but shortness of breath could be his anginal equivalent. He was started on Solu-Medrol and this is being weaned. Continue nebulizer treatments and Trelegy. Pulmonary consulted and appreciate their input. Continue antibiotics. Wean oxygen as tolerated. (3) Elevated troponin: Code(s): R77.8 - Other specified abnormalities of plasma proteins Status: Acute Assessment and Plan: Patient with elevated troponin to 1.6. EKG shows sinus tachycardia with mild ST depression anterior leads. EKG does not appear much different from a May EKG. Echo showing EF 60-65% with HK, LAE, severe (JIM 1), moderate MS, mild-mod MR, and severe pulmonary HTN. Continue aspirin. Heparin drip stopped. Cardiology been consulted and appreciate their input. Given the CTA findings, hypokinesis and elevated Trop, concern for underlying cardiac ischemia. Will discuss with Cardiology about ischemic evaluation. (4) Mitral stenosis: Code(s): I05.0 - Rheumatic mitral stenosis Status: Acute Assessment and Plan: Echo from April shows [id number]-ic-xcpfeijt mitral stenosis. Repeat echo here showing moderate MS and mild-mod MR. Cardiology following. (5) Aortic stenosis: Code(s): I35.0 - Nonrheumatic aortic (valve) stenosis Status: Acute Assessment and Plan: Echocardiogram in April showing moderate to severe aortic stenosis. Echo here again showing severe with JIM 1. Cardiology has been consulted. Valve disease and/or pulm HTN could explain his more frequent exacerbations. (6) Type 2 diabetes mellitus: Code(s): E11.9 - Type 2 diabetes mellitus without complications Status: Chronic Assessment and Plan: A1c 6.7 in May.Patient appears to only be on metformin which is on hold. Patient's glucose is elevated related to the steroids. Wean steroids quickly as patient tolerates. Continue sliding scale protocol. Continue hypoglycemia protocol. Add Lantus. (7) PAD (peripheral artery disease): Code(s): I73.9 - Peripheral vascular disease, unspecified Status: Acute Assessment and Plan: Patient states that he has only minimal lower extremity arterial disease. There is however a CTA of the abdominal aorta and bilateral lower extremities on
--- NOTE | 2021-08-03 11:23 | PM.PNPUL ---
Progress Note: A&P Assessment and Plan (1) Acute exacerbation of chronic obstructive airways disease: Code(s): J44.1 - Chronic obstructive pulmonary disease with (acute) exacerbation Status: Acute Assessment and Plan: Gold group D COPD (49 PY, quit 2018, no PFT in last 10 years as syncope with PFTs 10 years ago), chronic hypoxemic and hypercarbic respiratory failure on room air at rest, 2 L with activity and 8 L at night was unable to tolerate any CPAP or BiPAP mask for his hypercarbic respiratory failure maintained on triple inhalers and unable to afford daliresp. currently patient comes in with 2 day history of increasing shortness of breath, fatigue, worsening hypoxemia, increasing need for short-acting beta agonists rescue and waking up early this morning with severe shortness of breath, gasping for air and worsening hypoxemia that improved when EMS treated him with a nebulizer and the ED treated him with bronchodilators, Lasix and steroids. Of note patient has a positive troponin. I will continue treating this for COPD exacerbation and will decrease his Solu-Medrol from 60 Q 6-40 q.6. I will continue albuterol nebulizers 2.5 mg q.4 hours and ipratropium nebulizers 0.5 mg q.4 hours. Currently he has no wheezing. Regarding concurrent issues that may be causing his shortness of breath he has a positive D-dimer at 3.84 and I will proceed with a CT angiogram of the chest as long as there is no plan for cardiac catheterization today given his positive troponins. I am awaiting a call back from the cardiology team. I will send blood cultures x2. I have sent a sputum for Gram stain and culture, is COVID RT PCR study is negative. He has had worsening cough with minimal phlegm production since his last outpatient exacerbation in which he was treated with Levaquin and previous exacerbations this year which he was treated with azithromycin. He was admitted to the hospital in May and I will initiate treatment for resistant organisms with vancomycin and Zosyn for now. 08/03 Patient does have wheezing, had increased phlegm, increased cough and worsening dyspnea on exertion and hypoxemia. many of of says symptoms may be explained by his cardiac dysfunction but he may have a COPD exacerbation. will decrease his Solu-Medrol to 20 q.6, will continue albuterol and ipratropium nebulizers q.4 hours. I will discontinue his trilogy inhaler as he is on maximal beta agonist, muscarinic antagonist and on systemic steroids. He has infiltrates on his CT scan and will continue vancomycin and change him to Levaquin. G stain with gram-positive cocci few mixed bacterial pato culture is pending. Blood Cultures are negative. Pulmonary inpatient services will resume on 08/06/2021. Discussed with Dr. Wing. (2) Acute on chronic respiratory failure with hypoxia and hypercapnia: Code(s): J96.21 - Acute and chronic respiratory failure with hypoxia; J96.22 - Acute and chronic respiratory failure with hypercapnia Status: Acute Assessment and Plan: patient has chronic hypercarbic and hypoxemic respiratory failure from his COPD. patient had a blood gas on admission of 7.33/54/73 on 6 L nasal cannula demonstrating chronic hypercarbic respiratory failure. Patient would benefit from noninvasive ventilation to prevent disease progression and hospitalizations in the future. The patient would benefit from noninvasive ventilation but he states he cannot tolerate CPAP or BiPAP mask. I have talked to him multiple times in the clinic about this. Will again talked to him to see if we could try desensitization while he is in the hospital to see if he could tolerate a positive airway pressure therapy. Currently patient is on 5 L nasal cannula with saturations 97%. 08/03 We had a discussion about his inability to tolerate CPAP or BiPAP for his obstructive sleep apnea and he said he is willing to try to see if we can find comfort
[2021-08-03 12:24] LABS: Glucose Point of Care 384 mg/dl (65-105)
[2021-08-03] MEDS: INSULIN GLARGINE (*BKC) 100 UNITS/ML 14 UNITS SUB-Q (12:34)
[2021-08-03] MEDS: methylPREDNISolone SOD SUCC 40 MG VIAL 20 MG IV PUSH ×3 (12:35→23:03)
--- NOTE | 2021-08-03 12:51 | PM.PNCARD ---
Progress Note: A&P Assessment and Plan (1) Elevated troponin: Code(s): R77.8 - Other specified abnormalities of plasma proteins Status: Acute Assessment and Plan: Unclear if the patient has elevated troponins are secondary to a NSTEMI/ACS event, or a type 2 VT secondary to respiratory failure. No typical anginal chest pain and a few days of shortness of breath and cough argue toward a COPD exacerbation. On the other hand he was not particularly hypoxic and his ABGs were not particularly bad in the emergency room. Does have some slight ST depression on his EKG. No known coronary disease. He is feeling better now. Discussed approach with Dr. Sanchez. CTA negative for PE ST depressions resolved on repeat EKG Heparin has been discontinued as this seems more like Type 2 VT related to severe rather than ACS Echo showed EF 60-65%. However, the apex, apical inferior and apical anterior segments were mildly hypokinetic with moderate hypokinesis of the mid and distal septum. Grade 2 diastolic dysfunction was noted. Also has severe , mild-mod MR, and severe PHTN (2) Acute on chronic respiratory failure with hypoxia and hypercapnia: Code(s): J96.21 - Acute and chronic respiratory failure with hypoxia; J96.22 - Acute and chronic respiratory failure with hypercapnia Status: Acute Assessment and Plan: Long history of COPD on home O2, Evaluated by Dr. Sanchez (3) Aortic stenosis: Code(s): I35.0 - Nonrheumatic aortic (valve) stenosis Status: Acute Assessment and Plan: Mod - severe from echo in April 2021...now there is severe aortic valve stenosis with a peak velocity of 408 cm/s, mean gradient of 38 mmHg, and aortic valve area of 1.0 cm2. Recommend follow up with his primary plan coordinator at [facility] (4) Mitral stenosis: Code(s): I05.0 - Rheumatic mitral stenosis Status: Acute Assessment and Plan: Severe mitral annular calcification thickened mitral valve and moderate mitral valve stenosis with a mean gradient of 12 mmHg and mitral valve area 1.6 cm2. Mild to moderate mitral regurgitation is present as well. Subjective Date/time seen: 08/03/21 12:51 Cardiology follow up for elevated troponin, aortic stenosis He's feeling much better today. Still has some shortness of breath but this has improved significantly. No shortness of breath. Review of Systems Constitutional: Constitutional: Reports fatigue Eyes: Eyes: Reports no additional eye complaints ENT: Denies epistaxis Cardiovascular: Cardiovascular: Denies chest pain, Reports pedal edema (occasionally), Reports dyspnea and Reports dyspnea on exertion Respiratory: Respiratory: Reports chest congestion, Reports cough, Reports dyspnea, Reports dyspnea on exertion and Reports wheezing Gastrointestinal: Gastrointestinal: Denies abdominal pain and Reports hematochezia Genitourinary: Genitourinary: Denies hematuria Musculoskeletal: Musculoskeletal: Reports no additional musculoskeletal complaints Integumentary/Breasts: Skin/Breast: Denies rash Neurologic: Denies behavioral changes and Denies confusion Psychiatric: Psychiatric: Denies behavioral changes and Denies confusion Endocrine: Endocrine: Reports fatigue Allergic/Immunologic: Allergic/Immunologic: Reports wheezing Exam Narrative: Obese male sitting on the edge of the bed Const: General: comfortable and no acute distress; No confusion Orientation/consciousness: No confusion HENMT: General nose exam: no epistaxis Mouth: Yes moist mucous membranes Eyes: EOM: EOMs intact bilaterally Neck: Neck: supple and no JVD Thyroid: thyroid normal Carotids: no bruits Lymphatic: lymphadenopathy not noted Resp: Auscultation: wheezes expiratory wheezes and scattered wheezes Cardio: Rate: regular rate Rhythm: regular rhythm Heart sounds: Murmur heart sound present (2-3/6 harsh DOMINICK heard best at lower sternal borders) GI: Inspection: non-diste
[2021-08-03 16:47] LABS: Glucose Point of Care 255 mg/dl (65-105)
[2021-08-03 21:18] LABS: Glucose Point of Care 295 mg/dl (65-105)
[2021-08-03 22:41] LABS: Vancomycin Trough 22.5 ug/mL (10.0-20.0)
[2021-08-04] VITALS (24 sets, daily range): BP systolic 107–145; BP diastolic 54–66; PULSE 61–124; RESP 18–22; TEMP 36.2–36.6; O2SAT 92–99
[2021-08-04] MEDS: IPRATROPIUM BR 0.02% INH SOLN 0.5 MG/2.5 ML VIAL INHALATION ×5 (04:35→16:10)
[2021-08-04] MEDS: ALBUTEROL SULFATE NEB 2.5 MG/0.5 ML INH INHALATION ×5 (04:35→16:10)
[2021-08-04 04:50] LABS: Alveolar/Arterial O2 Gradient 56.3 mmHg; Base Excess ABG 5.6 mEq/l (+/-2.0); HCO3 ABG 33.1 mEq/l (22.0-26.0); Oxygen Content ABG 20.1 %vol (16.0-22.0); Oxygen Saturation ABG 93.8 % (95.0-100.0); PCO2 ABG 59.6 mmHg (35.0-45.0); Total Hemoglobin 15.3 g/dL (12.0-18.0); pH ABG 7.362 (7.350-7.450)
[2021-08-04 04:51] LABS: Device OTHER DEVICE; Fractional Inspired Oxygen 28 %; Modified Allen's Test Pass; Oxyhemoglobin 93.4 % THb (90.0-100.0); PO2 FiO2 Ratio Arterial Blood 2.61 %; Site Drawn LEFT RADIAL
[2021-08-04] MEDS: methylPREDNISolone SOD SUCC 40 MG VIAL 20 MG IV PUSH ×3 (06:19→17:40)
[2021-08-04 06:26] LABS: Anion Gap 5 mmol/L (8-16); Blood Urea Nitrogen 30 mg/dL (9-20); Carbon Dioxide 37 mmol/L (22-30); Chloride 95 mmol/L (98-107); Estimated CRCL calculation 86 ml/min; Estimated Glomerular Filt Rate > 60; Glucose 272 mg/dL (65-110); Potassium 4.6 mmol/L (3.4-5.0); Sodium 137 mmol/L (137-145)
[2021-08-04] MEDS: PYRIDOXINE HCL 50 MG TABLET 250 MG PO (08:22)
[2021-08-04] MEDS: ENOXAPARIN 40 MG/0.4 ML SYRINGE SUB-Q (08:22)
[2021-08-04] MEDS: ASPIRIN 81 MG CHEWABLE TABLET PO (08:23)
[2021-08-04] MEDS: FUROSEMIDE 20 MG TABLET PO (08:23)
[2021-08-04] MEDS: ramipriL 5 MG CAPSULE 20 MG PO (08:23)
[2021-08-04] MEDS: MAGNESIUM OXIDE 400 MG TABLET PO (08:23)
[2021-08-04] MEDS: ATORVASTATIN 20 MG TABLET PO (08:23)
[2021-08-04] MEDS: MULTIVITAMINS THERAPEUTIC TAB (*BKC) 1 TABLET PO (08:23)
[2021-08-04 08:44] LABS: Glucose Point of Care 269 mg/dl (65-105)
[2021-08-04] MEDS: INSULIN ASPART (*BKC) 100 UNITS/ML SUB-Q ×3 (09:04→17:39)
--- NOTE | 2021-08-04 09:09 | PM.PNCARD ---
Progress Note: A&P Assessment and Plan (1) Elevated troponin: Code(s): R77.8 - Other specified abnormalities of plasma proteins Status: Acute Assessment and Plan: Elevated troponins, s/o CP, secondary to a type 2 DE due to COPD exacerbation superimposed on aortic stenosis and possible underlying CAD CTA negative for PE ST depressions resolved on repeat EKG Heparin has been discontinued as this seems more like Type 2 DE related to severe rather than ACS Echo showed EF 60-65%. However, the apex, apical inferior and apical anterior segments were mildly hypokinetic with moderate hypokinesis of the mid and distal septum. Grade 2 diastolic dysfunction was noted. Also has severe , mild-mod MR, and severe PHTN Continue aspirin Check lipids, add atorvastatin 40 mg daily Follow-up with usual senior courtroom clerk on discharge to pursue cardiac catheterization, and possible aortic and mitral valve replacements (2) Acute on chronic respiratory failure with hypoxia and hypercapnia: Code(s): J96.21 - Acute and chronic respiratory failure with hypoxia; J96.22 - Acute and chronic respiratory failure with hypercapnia Status: Acute Assessment and Plan: Long history of COPD on home O2, now with exacerbation, Evaluated by Dr. Sanchez Improving with antibiotics and steroids (3) Aortic stenosis: Code(s): I35.0 - Nonrheumatic aortic (valve) stenosis Status: Acute Assessment and Plan: Mod - severe from echo in April 2021...now there is severe aortic valve stenosis with a peak velocity of 408 cm/s, mean gradient of 38 mmHg, and aortic valve area of 1.0 cm2. Recommend follow up with his primary senior courtroom clerk at [facility] (4) Mitral stenosis: Code(s): I05.0 - Rheumatic mitral stenosis Status: Acute Assessment and Plan: Severe mitral annular calcification thickened mitral valve and moderate mitral valve stenosis with a mean gradient of 12 mmHg and mitral valve area 1.6 cm2. Mild to moderate mitral regurgitation is present as well. Subjective Date/time seen: 08/04/21 09:09 Interval history: Cardiology follow up for elevated troponin, aortic stenosis 08/03/2020: He's feeling much better today. Still has some shortness of breath but this has improved significantly. No shortness of breath. Date of service 08/04/2020: Continues to improve, able to walk to the bathroom without much shortness of breath. No chest discomfort. On 2 L nasal cannula. Review of Systems Constitutional: Constitutional: Denies weakness Eyes: Eyes: Reports no additional eye complaints ENT: Denies epistaxis Cardiovascular: Cardiovascular: Denies chest pain, Denies pedal edema, Denies leg edema and Denies lightheadedness Respiratory: Respiratory: Reports cough (White sputum) and Denies dyspnea Gastrointestinal: Gastrointestinal: Reports constipation Genitourinary: Genitourinary: Denies dysuria Musculoskeletal: Musculoskeletal: Reports no additional musculoskeletal complaints Integumentary/Breasts: Skin/Breast: Denies rash Neurologic: Denies confusion Psychiatric: Psychiatric: Reports no additional psychiatric complaints Exam Const: General: comfortable and no acute distress HENMT: General nose exam: no epistaxis Eyes: EOM: EOMs intact bilaterally Neck: Neck: supple Resp: Effort & Inspection: normal respiratory effort Auscultation: wheezes (Mild scattered expiratory wheezing) Cardio: Rate: regular rate Rhythm: regular rhythm Heart sounds: Murmur heart sound present (Harsh 2/6 DOMINICK upper sternal and mid sternal borders) GI: GI Palp: Yes Soft to palpation and No Tenderness to palpation present (GI) Skin: General skin exam: normal color and no rashes or lesions noted Neuro: Cognition (Neuro): normal cognition Speech: normal speech Extrem: General: no edema and no pedal edema Psych: Mental Status: mental status grossly normal Affect: normal affect Objective Data Vital
[2021-08-04 17:11] LABS: Glucose Point of Care 302 mg/dl (65-105)
[2021-08-04 17:16] LABS: Glucose Point of Care 341 mg/dl (65-105)
--- NOTE | 2021-08-04 17:19 | PM.IMPN ---
Progress Note: A&P Assessment and Plan (1) DVT prophylaxis: Code(s): Z29.9 - Encounter for prophylactic measures, unspecified Status: Acute Assessment and Plan: Lovenox (2) ARCHANA (obstructive sleep apnea): Code(s): G47.33 - Obstructive sleep apnea (adult) (pediatric) Status: Acute Assessment and Plan: Unable to tolerate CPAP, continue 7 L of oxygen at night per home use (3) Aortic stenosis: Code(s): I35.0 - Nonrheumatic aortic (valve) stenosis Status: Acute Assessment and Plan: Significant murmur noted, patient is a candidate for aortic valve replacement, defer to Cardiology for further management (4) Type 2 diabetes mellitus: Code(s): E11.9 - Type 2 diabetes mellitus without complications Status: Chronic Assessment and Plan: Controlled, continue current management, metformin is held, continue sliding scale, Lantus added due to hyperglycemia secondary to steroid use (5) Community acquired pneumonia: Qualifiers: Laterality: unspecified laterality Qualified Code(s): J18.9 - Pneumonia, unspecified organism Code(s): J18.9 - Pneumonia, unspecified organism Status: Acute (6) Chronic obstructive pulmonary disease: Code(s): J44.9 - Chronic obstructive pulmonary disease, unspecified Status: Chronic Assessment and Plan: Continue breathing treatments and steroids, continue to wean, add incentive spirometer Subjective Date/time seen: 08/04/21 12:49 Patient states he feels better than yesterday. No chest pain or shortness of breath. No overnight noted. Reason chills. Review of Systems Review of Systems: All systems reviewed & are unremarkable except as noted in HPI and below Exam Const: General: no acute distress HENMT: Mouth: Yes moist mucous membranes Eyes: General: appearance normal, both eyes and all related structures Neck: Neck: no JVD Resp: Auscultation: diminished lung sounds Cardio: Rate: regular rate Rhythm: regular rhythm Heart sounds: Murmur heart sound present GI: Inspection: non-distended GI Palp: Yes Soft to palpation and No Tenderness to palpation present (GI) Extrem: General: no edema Objective Data Vital Signs Vital Signs: Vital Signs - 24 hr 08/03/21 18:00 08/03/21 19:52 08/03/21 19:56 Temperature Pulse Rate 105 H 106 H Respiratory Rate 18 Blood Pressure Pulse Oximetry 94 08/03/21 20:00 08/03/21 20:06 08/03/21 22:00 Temperature 96.8 F L Pulse Rate 101 H 111 H 101 H Respiratory Rate 18 18 Blood Pressure 118/55 L Pulse Oximetry 100 08/03/21 22:45 08/04/21 00:00 08/04/21 01:51 Temperature 97.9 F Pulse Rate 107 H 97 97 Respiratory Rate 18 20 Blood Pressure 107/54 L Pulse Oximetry 94 97 08/04/21 02:56 08/04/21 04:00 08/04/21 04:36 Temperature 97.9 F Pulse Rate 94 124 H 103 H Respiratory Rate 19 18 20 Blood Pressure 145/60 H Pulse Oximetry 92 95 08/04/21 04:46 08/04/21 06:00 08/04/21 07:55 Temperature Pulse Rate 105 H 96 90 Respiratory Rate 20 20 Blood Pressure Pulse Oximetry 95 08/04/21 08:00 08/04/21 08:02 08/04/21 10:00 Temperature 97.2 F L Pulse Rate 89 84 102 H Respiratory Rate 20 20 Blood Pressure 126/63 Pulse Oximetry 95 95 08/04/21 12:00 08/04/21 12:05 08/04/21 12:13 Temperature 97.4 F L Pulse Rate 89 91 93 Respiratory Rate 20 20 20 Blood Pressure 125/60 Pulse Oximetry 96 08/04/21 16:00 08/04/21 16:08 08/04/21 16:15 Temperature Pulse Rate 86 109 H 97 Respiratory Rate 20 20 Blood Pressure Pulse Oximetry Intake/Output Intake/Output: Intake & Output 08/01/21 08/02/21 08/03/21 08/04/21 23:59 23:59 23:59 23:59 Intake Total 1920 2870 1470 Output Total 1900 1050 900 Balance 20 1820 570 Meds/Results Medications: Active Medications Generic Name Dose Route Start Last Admin Trade Name Freq PRN Reason Stop Dose Admin Acetaminophen
--- NOTE | 2021-08-04 17:21 | PC.NURSE ---
Dr. Sanchez had called to check on patient and to see if patient tolerated apnea link last night. After speaking with the patient Dr. Sanchez has decided on new orders of AVAPS increasing the following: TV 550, Rate 16, FiO2 32%. Repeat apnea link tonight with new settings on AVAPS machine. Obtain ABG in AM after removal of AVAPS machine.
--- NOTE | 2021-08-04 18:58 | PC.NURSE ---
This patient, Fadi Greenwood, was received from [facility] on 08/04/21 at 1858. Patient/family oriented to unit policies and routines
--- NOTE | 2021-08-04 19:18 | PC.NURSE ---
This patient, Fadi Greenwood, was transferred to [facility] on 08/04/21 at 1850. Personal belongings sent with patient. Report given to Katerina FELIZ. Appropriate documentation sent with patient.
[2021-08-04 21:37] LABS: Glucose Point of Care 238 mg/dl (65-105)
[2021-08-05] VITALS (19 sets, daily range): BP systolic 130–135; BP diastolic 56–63; PULSE 89–111; RESP 16–28; TEMP 35.9–36.5; O2SAT 87–95
[2021-08-05] MEDS: ALBUTEROL SULFATE NEB 2.5 MG/0.5 ML INH INHALATION ×3 (03:57→11:40)
[2021-08-05] MEDS: IPRATROPIUM BR 0.02% INH SOLN 0.5 MG/2.5 ML VIAL INHALATION ×3 (03:57→11:40)
[2021-08-05 04:24] LABS: Base Excess ABG 8.3 mEq/l (+/-2.0); Fractional Inspired Oxygen 32 %; HCO3 ABG 35.4 mEq/l (22.0-26.0); Oxygen Content ABG 16.9 %vol (16.0-22.0); Oxygen Saturation ABG 94.8 % (95.0-100.0); Oxyhemoglobin 94.3 % THb (90.0-100.0); PO2 ABG 77.3 mmHg (80.0-100.0); PO2 FiO2 Ratio Arterial Blood 2.42 %; Total Hemoglobin 12.7 g/dL (12.0-18.0); pH ABG 7.379 (7.350-7.450)
[2021-08-05 04:26] LABS: Modified Allen's Test Pass; PCO2 ABG 61.4 mmHg (35.0-45.0); Site Drawn RIGHT RADIAL
[2021-08-05 04:27] LABS: Non-Invasive Vent Rate 16 /MIN
[2021-08-05 04:28] LABS: Device NON-INVASIVE VENT; Non-Invasive Expiratory Pressure 5 CMH2O
[2021-08-05 07:16] LABS: Cholesterol 132 mg/dL (0-200); HDL Direct 58 mg/dL; Triglycerides 82 mg/dL (<150)
[2021-08-05 07:26] LABS: LDL Cholesterol Direct 53 mg/dL
[2021-08-05 07:34] LABS: Glucose Point of Care 274 mg/dl (65-105)
[2021-08-05] MEDS: INSULIN ASPART (*BKC) 100 UNITS/ML SUB-Q ×3 (07:49→16:12)
[2021-08-05] MEDS: ramipriL 5 MG CAPSULE 20 MG PO (07:53)
[2021-08-05] MEDS: ATORVASTATIN 40 MG TABLET PO (07:53)
[2021-08-05] MEDS: ENOXAPARIN 40 MG/0.4 ML SYRINGE SUB-Q (07:53)
[2021-08-05] MEDS: MAGNESIUM OXIDE 400 MG TABLET PO (07:54)
[2021-08-05] MEDS: MULTIVITAMINS THERAPEUTIC TAB (*BKC) 1 TABLET PO (07:54)
[2021-08-05] MEDS: PYRIDOXINE HCL 50 MG TABLET 250 MG PO (07:54)
[2021-08-05] MEDS: FUROSEMIDE 20 MG TABLET PO (07:55)
[2021-08-05] MEDS: ASPIRIN 81 MG CHEWABLE TABLET PO (07:55)
--- NOTE | 2021-08-05 08:58 | PC.NURSE ---
called pharmacy to deliver prednisone 40 mg po, awaiting pharmacy to deliver medication.
[2021-08-05] MEDS: predniSONE 20 MG TABLET 40 MG PO (09:32)
--- NOTE | 2021-08-05 10:28 | PM.DS ---
DS: Admitting Diagnosis Discharge Date August 05, 2021 Admitting Diagnosis Acute on chronic respiratory failure with hypoxia and hypercapnia, COPD exacerbation DS: Discharge Diagnosis Discharge Diagnosis (1) Community acquired pneumonia: Qualifiers: Laterality: unspecified laterality Qualified Code(s): J18.9 - Pneumonia, unspecified organism Code(s): J18.9 - Pneumonia, unspecified organism Status: Acute (2) COPD (chronic obstructive pulmonary disease): Qualifiers: COPD type: COPD with acute exacerbation Qualified Code(s): J44.1 - Chronic obstructive pulmonary disease with (acute) exacerbation Code(s): J44.9 - Chronic obstructive pulmonary disease, unspecified Status: Acute DS: Summary Hospital Course Reason for hospitalization: Shortness of breath Hospital Course: 65-year-old male with past medical history significant for COPD and chronic respiratory failures presenting with shortness of breath. He occasionally uses oxygen at home, but not all the time. He started needing up to 9 L in the ER and needed 6 L high-flow nasal cannula. He did have an elevated troponin to 1 3. Cardiology and pulmonology were consulted. He was started on Lasix and Solu-Medrol as well as aspirin. He also has untreated sleep apnea. He was started on IV antibiotics and Legionella and strep pneumo antigens were sent as well as a sputum culture. Steroids and breathing treatments were continued. Pulmonology change antibiotics to vancomycin and Levaquin. Cardiology thought most symptoms were from pulmonary etiology. They recommended outpatient follow-up with his industrial editor at [facility] for possible aortic valve over placement. His breathing improved significantly and steroids were slowly weaned. Sputum culture came back positive for Moraxella. Cardiology recommended outpatient replacement of aortic valve and deferred further management to pulmonology and hospitalist care. Patient's symptoms resolved significantly and he was discharged on Levaquin and a prednisone taper with close follow-up outpatient with pulmonology and Cardiology. Status at Discharge Functional status at discharge: independent ambulation Time Spent with Patient Time attestation: Total time spent providing and/or coordinating discharge services: Exam Const: General: no acute distress Eyes: General: appearance normal, both eyes and all related structures Neck: Neck: no JVD Resp: Effort & Inspection: normal respiratory effort Auscultation: no crackles and diminished lung sounds Cardio: Rate: regular rate Rhythm: regular rhythm GI: GI Palp: Yes Soft to palpation and No Tenderness to palpation present (GI) DS: Data Data Completed and Pending Labs on day of discharge: Labs from last 24 hours 08/05/21 08/05/21 08/05/21 07:27 06:42 04:03 Puncture Site ABG pH ABG pCO2 ABG pO2 ABG PO2/FiO2 Ratio ABG HCO3 ABG O2 Saturation ABG O2 Content ABG Base Excess A-a Gradient Oxyhemoglobin Total Hemoglobin O2 Delivery Device O2 Liters/Min Vent Rate Pending FiO2 Expiratory Pressure Pending Inspiratory Pressure Pending POC Capillary Glucose 274 H Triglycerides 82 Cholesterol 132 LDL Cholesterol Direct 53 HDL Direct 58 08/05/21 08/04/21 08/04/21 04:03 20:24 16:49 Puncture Site Right radial ABG pH 7.379 ABG pCO2 61.4 H* ABG pO2 77.3 L ABG PO2/FiO2 Ratio 2.42 ABG HCO3 35.4 H ABG O2 Saturation 94.8 L ABG O2 Content 16.9 ABG Base Excess 8.3 A-a Gradient 79.0 Oxyhemoglobin 94.3 Total Hemoglobin 12.7 O2 Delivery Device Non-invasive vent O2 Liters/Min Hospitality House Supervisor Vent Rate 16 FiO2 32 Expiratory Pressure 5 Inspiratory Pressure Not Reportable POC Capillary Glucose 238 H 302 H Triglycerides Cholesterol LDL Cholesterol Direct HDL Direct 08/04/21 11:43 Puncture Site ABG pH ABG pCO2 ABG p
--- NOTE | 2021-08-05 11:09 | PC.NURSE ---
called pharmacy for IV meds for pt scheduled at 11am, levofloxcin and vancomycin.
--- NOTE | 2021-08-05 11:10 | PC.NURSE ---
awaiting delivery of levofloxcin and vancomycin IV from pharmacy.
--- NOTE | 2021-08-05 11:33 | PCOTNOTE ---
Canceled pt. order for OT services. Per PT evaluation, pt. is at baseline, and nursing and pt. report pt. has been independent in room. No skilled OT evaluation or services recommended.
[2021-08-05 12:02] LABS: Glucose Point of Care 350 mg/dl (65-105)
--- NOTE | 2021-08-05 13:51 | PM.PNCARD ---
Progress Note: A&P Assessment and Plan (1) Elevated troponin: Code(s): R77.8 - Other specified abnormalities of plasma proteins Status: Acute Assessment and Plan: Elevated troponins, s/o CP, secondary to a type 2 MA due to COPD exacerbation superimposed on aortic stenosis and possible underlying CAD ST depressions resolved on repeat EKG Heparin has been discontinued as this seems more like Type 2 MA related to severe rather than ACS Echo showed EF 60-65%. However, the apex, apical inferior and apical anterior segments were mildly hypokinetic with moderate hypokinesis of the mid and distal septum. Grade 2 diastolic dysfunction was noted. Also has severe , mild-mod MR, and severe PHTN Continue aspirin, atorvastatin added for prob CAD (coronary Ca+ on CT) Extra furosemide 40 mg po X 1 today for worsening LE edema Having brief PAT but no sustained arrhythmias Home today or tomorrow? Instructed to come to the ER ABIMBOLA if any worsening of breathing Follow-up with usual technical support specialist ABIMBOLA on discharge to pursue cardiac catheterization, and possible aortic and mitral valve replacements (2) Acute on chronic respiratory failure with hypoxia and hypercapnia: Code(s): J96.21 - Acute and chronic respiratory failure with hypoxia; J96.22 - Acute and chronic respiratory failure with hypercapnia Status: Acute Assessment and Plan: Long history of COPD on home O2, now with exacerbation, Evaluated by Dr. Daniel Alford; still on IV antibiotics and steroids (3) Aortic stenosis: Code(s): I35.0 - Nonrheumatic aortic (valve) stenosis Status: Acute Assessment and Plan: Mod - severe from echo in April 2021...now there is severe aortic valve stenosis with a peak velocity of 408 cm/s, mean gradient of 38 mmHg, and aortic valve area of 1.0 cm2. Aortic stenosis has progressed to the point where pt likely would benefit fr replacement. Recommend follow up with his primary technical support specialist Dr. Singh at [facility] to consider AVR +/- MVR (4) Mitral stenosis: Code(s): I05.0 - Rheumatic mitral stenosis Status: Acute Assessment and Plan: Severe mitral annular calcification thickened mitral valve and moderate mitral valve stenosis with a mean gradient of 12 mmHg and mitral valve area 1.6 cm2. Mild to moderate mitral regurgitation is present as well. Subjective Date/time seen: 08/05/21 13:51 Interval history: Cardiology follow up for elevated troponin, aortic stenosis 08/03/2021: He's feeling much better today. Still has some shortness of breath but this has improved significantly. No shortness of breath. Date of service 08/04/2021: Continues to improve, able to walk to the bathroom without much shortness of breath. No chest discomfort. On 2 L nasal cannula. Date of service 08/05/2021: Hopes to go home. Up in room w/o much trouble but still on 2L O2. No CP. Some LE edema. Occ tachy; tele shows NSR usually in 90's but APCs and brief runs PAT for a few beats. Review of Systems Constitutional: Constitutional: Reports fatigue and Denies weakness Eyes: Eyes: Reports no additional eye complaints ENT: Denies epistaxis Cardiovascular: Cardiovascular: Denies chest pain, Denies pedal edema, Denies leg edema, Denies lightheadedness, Denies dyspnea and Reports dyspnea on exertion Respiratory: Respiratory: Reports chest congestion, Reports cough (White sputum), Denies dyspnea, Reports dyspnea on exertion and Reports wheezing Gastrointestinal: Gastrointestinal: Denies abdominal pain, Reports hematochezia and Reports constipation Genitourinary: Genitourinary: Denies hematuria and Denies dysuria Musculoskeletal: Musculoskeletal: Reports no additional musculoskeletal complaints Integumentary/Breasts: Skin/Breast: Denies rash Neurologic: Denies behavioral changes, Denies confusion and Denies weakness Psychiatric: Psychiatric: Reports no additional psychiatric complaints, Den
--- NOTE | 2021-08-05 14:38 | PC.NURSE ---
home 02 eval order for pt, respiratory to eval. pt for home 02 settings, ordered per MD Melvin.
--- NOTE | 2021-08-05 15:10 | HOMEO2EVAL ---
Evaluation was performed at [facility] Home Oxygen Evaluation RC: Home Oxygen (O2) Evaluation Start: 08/05/21 14:37 Freq: ONCE Status: Active Protocol: RPE Activity Type Activity Date Activity User E-Sign Co-Sign Detail Recorded Client Recorded Date Recorded By Document 08/05/21 14:55 KRM [id number] 08/05/21 15:10 KRM Document 08/05/21 15:00 KRM [id number] 08/05/21 15:10 KRM Document 08/05/21 15:01 KRM [id number] 08/05/21 15:10 KRM Document 08/05/21 15:02 KRM [id number] 08/05/21 15:10 KRM Document 08/05/21 15:04 KRM [id number] 08/05/21 15:10 KRM 08/05/21 08/05/21 08/05/21 14:55 15:00 15:01 Home O2 Evaluation Test Phase Resting Exercise Exercise Oxygen Delivery Room Air Room Air Nasal Cannula Oxygen Flow Rate (L/min) 1 Pulse Oximetry (90-100 %) 92 87 L 88 L Pulse Rate (60-100 beats/min) 101 H 95 96 Activity Tolerance Ambulation Distance (feet) Ambulation Distance (meters) Treatment Charges 08/05/21 08/05/21 15:02 15:04 Home O2 Evaluation Test Phase Exercise Exercise Oxygen Delivery Nasal Cannula Nasal Cannula Oxygen Flow Rate (L/min) 2 3 Pulse Oximetry (90-100 %) 88 L 92 Pulse Rate (60-100 beats/min) 95 109 H Activity Tolerance Good Ambulation Distance (feet) 200 Ambulation Distance (meters) 60.95 Treatment Charges O2 Evaluation - Inpatient
--- NOTE | 2021-08-05 15:10 | PCRCNOTE ---
Home oxygen evaluation completed. Pt. needs are as follows: room air at rest and 3lpm with activity. Pt. already has o2 with [facility]. Family will bring tank to get pt. home. Pt. has all equipment at home he needs for the above requirements.
[2021-08-05] MEDS: FUROSEMIDE 40 MG TABLET PO (16:00)
[2021-08-05 16:22] LABS: Glucose Point of Care 387 mg/dl (65-105)
--- NOTE | 2021-08-05 16:54 | PC.NURSE ---
clarified with MD Melvin pt discharge medication, pt stated there was medication that needed to be stopped while on Levaquin and prednisone, no medication needs to be stopped per MD Melvin. Pt informed medications are correct.
--- NOTE | 2021-08-05 17:06 | PC.NURSE ---
MD Melvin to clarify prednisone taper with Lin.
[2021-08-06 03:40] LABS: Legionella pneumophila Ag Ur Not Detected (Not Detected)
[2021-08-06 14:09] LABS: Pneumococcal Antigen Urine Not Detected (Not Detected)
== END 2021-08-05 17:15 | disposition home or self-care (01) | DRG 190 ==
LOC: ANHED 04:16 → ANHIMU 04:42 → ANH2MED 08-04 18:49
PROVIDERS: Internal Medicine; Internal Medicine Cardiovascular Disease; Internal Medicine Pulmonary Disease; Admitting Provider Internal Medicine; Emergency Provider Family Medicine; Visit Provider Student in an Organized Health Care Education/Training Program
DX: J44.1 Chronic obstructive pulmonary disease with (acute) exacerbation (principal); J18.9 Pneumonia, unspecified organism; J96.21 Acute and chronic respiratory failure with hypoxia; J96.22 Acute and chronic respiratory failure with hypercapnia; I21.A1 Myocardial infarction type 2; J44.0 Chronic obstructive pulmonary disease with (acute) lower respiratory infection; I35.0 Nonrheumatic aortic (valve) stenosis; I05.0 Rheumatic mitral stenosis; Z20.822 Contact with and (suspected) exposure to COVID-19; G47.33 Obstructive sleep apnea (adult) (pediatric); E11.42 Type 2 diabetes mellitus with diabetic polyneuropathy; E78.5 Hyperlipidemia, unspecified; I10 Essential (primary) hypertension; I73.9 Peripheral vascular disease, unspecified; F41.9 Anxiety disorder, unspecified; E66.9 Obesity, unspecified; Z68.34 Body mass index [BMI] 34.0-34.9, adult; Z87.891 Personal history of nicotine dependence; Z99.81 Dependence on supplemental oxygen; Z79.82 Long term (current) use of aspirin; Z79.84 Long term (current) use of oral hypoglycemic drugs
CPT/HCPCS: 36415; 36600; 71045; 71275; 80048; 80053; 80061; 80202; 82805; 82948; 83735; 83880; 84100; 84484; 85025; 85380; 85610; 85730; 87040; 87070; 87077; 87205; 87449; 87804; 87899; 93005; 94002; 94618; 94640; 94762; 96374; 96375; 97161; 99285; A9270; C8929; C9803; J1644; J1650; J1815; J1940; J1956; J2543; J2920; J2930; J3370; J7512; Q9957; Q9967; U0003; U0005

== ENCOUNTER 2021-09-03 05:28 | Emergency (ER) | payer MEDICARE, OTHER, SELFPAY ==
--- NOTE | ~2021-09-03 | XR_ITS ---
XR chest 1V portable DATE: 09/03/2021 05:53 INDICATION: Shortness of breath for 2 days. History of COPD, hypertension. TECHNIQUE: Portable AP chest on 09/03/2021 at 0550 hours COMPARISON: 08/02/2021 CT pulmonary scan FINDINGS: Multiple approximately 1.3 cm mass in the lateral right midlung; CT thorax examination is r ecommended. Heart size appears within normal range but there is pulmonary vascular congestion and redistribution. There is mild prominence of the minor fissure suggesting subpleural edema. No pleural effusion. There is mild infiltrate or atelectasis scattered in both lung nguyen, greater in the lower lung zone s. Pneumonia and pulmonary edema are considerations. Aortic arch calcification. Osteopenia. IMPRESSION: Possible 1.3 cm mass, lateral right midlung; bronchogenic carcinoma is not excluded Congestive changes and patchy rather diffuse bilateral pulmonary infiltrates. Differential diagnosis includes pulmonary edema, pneumonia Reviewed, dictated and finalized at location A. IMPRESSION: Possible 1.3 cm mass, lateral right midlung; bronchogenic carcinoma is not excluded Congestive changes and patchy rather diffuse bilateral pulmonary infiltrates. D ifferential diagnosis includes pulmonary edema, pneumonia
--- NOTE | 2021-09-03 05:31 | ECG_ITS ---
Measurements Intervals Leivasy Rate: 113 P: MT: 0 QRS: 65 QRSD: 94 T: 45 QT: 302 QTc: 415 Interpretive Statements ATRIAL FIBRILLATION WITH RAPID VENTRICULAR RESPONSE VENTRICULAR PREMATURE COMPLEX ABNORMAL ECG Electronically Signed On 09-03-2021 7:13:41 CDT by Marlon Andrade D.O.
[2021-09-03 05:32] VITALS: BP 147/79; PULSE 118; RESP 22; TEMP 37.1; O2SAT 92
[2021-09-03 05:42] VITALS: O2SAT 94
--- NOTE | 2021-09-03 05:45 | ED.SOB ---
HPI - SOB/Dyspnea General Chief Complaint: Shortness of Breath/Dyspnea <Manoj Garcia MD - Last Filed: 09/03/21 18:58> Stated Complaint: sob <Manoj Garcia MD - Last Filed: 09/03/21 18:58> Time Seen by Provider: 09/03/21 05:30 <Manoj Garcia MD - Last Filed: 09/03/21 18:58> Source: patient <Manoj Garcia MD - Last Filed: 09/03/21 18:58> History of Present Illness HPI Narrative: Patient presents with shortness of breath. Patient reports a history of COPD as well as a history of aortic stenosis is currently being evaluated aortic valve replacement. He comes in with shortness of breath for approximately 2 days he has been trying his nebulized therapies however symptoms are worse today so he came to the ER for further evaluation. Her sensation of not getting enough air he reports increase in his cough denies any chest pain or fevers. Reports he has been having to use his as needed home oxygen for the past few days approximately 2 L and is satting low 90s to high 80s. Reports he gets very short of breath with walking short distances. Denies any nausea vomiting or diarrhea. <Manoj Garcia MD - Last Filed: 09/03/21 18:58> Related Data Home Medications: Home Medications Medication Instructions Recorded Confirmed ramipril 10 mg capsule (Altace) 20 mg PO DAILY 05/11/20 08/08/21 aspirin 81 mg tablet 81 mg PO EVERY OTHER DAY 08/06/20 08/08/21 multivitamin (Daily Multi-Vitamin) 100 tablet PO DAILY 08/14/20 08/08/21 pyridoxine (vitamin B6) 250 mg 250 mg PO DAILY 08/14/20 08/08/21 tablet (Vitamin B-6) albuterol sulfate 90 mcg/actuation 2 puff inhalation Q4H PRN 05/24/21 08/08/21 aerosol inhaler (ProAir HFA) shortness of breath or wheezing albuterol sulfate 2.5 mg/0.5 mL 2.5 mg inhalation Q4HRT PRN 08/02/21 08/08/21 solution for nebulization Shortness Of Breath amlodipine 10 mg tablet 10 mg PO DAILY 08/02/21 08/08/21 atorvastatin 20 mg tablet 20 mg PO DAILY 08/02/21 08/08/21 fluticasone fur. 200 mcg-umeclid 200 inh inhalation DAILY 08/02/21 08/08/21 62.5 mcg-vilant 25 mcg inhalat.powder (Trelegy Ellipta) furosemide 20 mg tablet 20 mg PO DAILY 08/02/21 08/08/21 metformin 1,000 mg tablet 1,000 mg PO BID 08/02/21 08/08/21 <Manoj Garcia MD - Last Filed: 09/03/21 18:58> Allergies/Adverse Reactions: Allergies Allergy/AdvReac Type Severity Reaction Status Date / Time naproxen Allergy Unknown Hives / Verified 09/03/21 05:39 Red Face <Manoj Garcia MD - Last Filed: 09/03/21 18:58> Review of Systems Review of Systems: CONSTITUTIONAL: Denies fever, chills, or sweats. EYES: Denies visual changes, redness, or discharge. ENT: Denies rhinorrhea, congestion, sore throat, or otalgia. CARDIOVASCULAR: Denies chest pain, palpitations, or edema. RESPIRATORY: Reports shortness of breath and cough GASTROINTESTINAL: Denies abdominal pain, nausea, vomiting, or diarrhea. GENITOURINARY: Denies dysuria or hematuria. SKIN: Denies rash or itching. MUSCULOSKELETAL: Denies back pain, joint pain, or myalgia. NEUROLOGIC: Denies headache, numbness, dizziness, or weakness. PSYCHIATRIC: Denies anxiety or depression. <Manoj Garcia MD - Last Filed: 09/03/21 18:58> All systems reviewed & are unremarkable except as noted in HPI and below <Manoj Garcia MD - Last Filed: 09/03/21 18:58> PMFSH Past Medical History Medical History: Medical History Anxiety Aortic stenosis Chronic obstructive pulmonary disease Chronic respiratory failure with hypoxia, on home oxygen therapy Diabetic peripheral neuropathy Former smoker Patient smoked anywhere from 0.5 to 2 packs of cigarettes per day. Hyperlipidemia Hypertension Mitral stenosis ARCHANA (obstructive sleep apnea) PAD (peripheral artery disease) Type 2 diabetes mellitus Hemoglobin A1c was 6.8% on 05/14/2020. <Manoj Garcia MD - Last Filed: 09/03/21 18:58> Surgical H
[2021-09-03 05:51] LABS: Basophils Absolute Auto 0.1 K/mm3 (0.0-0.1); Basophils Percent Auto 0.8 % (0.2-1.2); Eosinophils Absolute Auto 0.6 K/mm3 (0-0.3); Eosinophils Percent Auto 7.1 % (0-4.4); Hemoglobin 10.7 g/dL (14.0-18.0); Immature Granulocyte Absolute 0.09 K/mm3 (0.00-0.031); Immature Granulocyte Percent A 1.1 % (0-0.5); Lymphocytes Absolute Auto 1.36 K/mm3 (0.9-3.2); Lymphocytes Percent Auto 16.3 % (18.3-44.2); Mean Corpuscular HGB Conc 30.6 g/dl (32-36); Mean Corpuscular Hemoglobin 27.5 pg (26-34); Mean Platelet Volume 9.1 fl (7.4-10.4); Monocytes Absolute Auto 1.2 K/mm3 (0.1-0.6); Monocytes Percent Auto 14.3 % (2.6-8.5); Neutrophils Absolute Auto 5.1 K/mm3 (1.3-6.7); Neutrophils Percent Auto 60.4 % (45.5-73.1); Platelet Count Result 406 k/mm3 (150-375); Red Blood Count 3.89 M/mm3 (4.6-6.20); Red Cell Distribution Width 13.9 % (11.5-14.5); White Blood Count 8.4 K/mm3 (4.5-10.0)
[2021-09-03] MEDS: methylPREDNISolone SOD SUCC 125 MG VIAL IV PUSH (05:51)
[2021-09-03 05:55] VITALS: O2SAT 94
[2021-09-03] MEDS: ALBUTEROL SULFATE NEB 2.5 MG/3 ML INH 15 MG INHALATION (05:55)
[2021-09-03] MEDS: IPRATROPIUM BR 0.02% INH SOLN 0.5 MG/2.5 ML VIAL 1.5 MG INHALATION (05:55)
[2021-09-03 06:01] LABS: Alanine Aminotransferase 14 U/L (6-50); Albumin Level 3.8 g/dL (3.5-5.1); Alkaline Phosphatase 80 U/L (38-126); Anion Gap 5 mmol/L (8-16); Aspartate Amino Transferase 25 U/L (17-59); Bilirubin,Total 0.4 mg/dL (0.2-1.3); Blood Urea Nitrogen 13 mg/dL (9-20); Calcium 8.7 mg/dL (8.4-10.2); Carbon Dioxide 31 mmol/L (22-30); Chloride 102 mmol/L (98-107); Estimated Glomerular Filt Rate > 60; Glucose 180 mg/dL (65-110); Potassium 4.6 mmol/L (3.4-5.0); Sodium 138 mmol/L (137-145)
[2021-09-03 06:10] VITALS: PULSE 104; RESP 16
[2021-09-03 06:12] LABS: Alveolar/Arterial O2 Gradient 74.8 mmHg; Base Excess ABG 4.5 mEq/l (+/-2.0); Fractional Inspired Oxygen 28 %; HCO3 ABG 29.6 mEq/l (22.0-26.0); Oxygen Content ABG 15.6 %vol (16.0-22.0); Oxygen Saturation ABG 94.3 % (95.0-100.0); Oxyhemoglobin 94.3 % THb (90.0-100.0); PCO2 ABG 46.3 mmHg (35.0-45.0); PO2 ABG 70.2 mmHg (80.0-100.0); PO2 FiO2 Ratio Arterial Blood 2.51 %; Total Hemoglobin 11.7 g/dL (12.0-18.0); pH ABG 7.424 (7.350-7.450)
[2021-09-03 06:13] LABS: Device NASAL CANNULA; Site Drawn RIGHT BRACHIAL
[2021-09-03 08:06] VITALS: PULSE 86; RESP 22; O2SAT 94
== END 2021-09-03 08:08 | disposition home or self-care (01) ==
PROVIDERS: Emergency Medicine; Emergency Provider Emergency Medicine
DX: J96.11 Chronic respiratory failure with hypoxia (principal); J44.9 Chronic obstructive pulmonary disease, unspecified; E11.42 Type 2 diabetes mellitus with diabetic polyneuropathy; E11.51 Type 2 diabetes mellitus with diabetic peripheral angiopathy without gangrene; E78.5 Hyperlipidemia, unspecified; I10 Essential (primary) hypertension; I08.0 Rheumatic disorders of both mitral and aortic valves; Z99.81 Dependence on supplemental oxygen; Z87.891 Personal history of nicotine dependence; Z79.82 Long term (current) use of aspirin; Z79.84 Long term (current) use of oral hypoglycemic drugs
CPT/HCPCS: 36415; 36600; 71045; 80053; 82805; 85025; 93005; 94640; 96374; 99284; J2930

== ENCOUNTER 2022-02-01 09:23 | Outpatient (CLI) | payer MEDICARE, OTHER, SELFPAY ==
--- NOTE | ~2022-02-01 | CT_ITS ---
EXAMINATION: CT diagnostic chest wo con DATE: 02/01/2022 09:42 INDICATION: Right upper lobe consolidation. TECHNIQUE: Computed tomography (CT) of the chest was performed without intravenous contrast. The dose -length product was 796.74 mGy-cm. Automated exposure control and iterative reconstruction technique were employed. COMPARISON: CT dated 08/02/2021 and chest x-ray dated 09/03/2021 FINDINGS: There is atherosclerosis of the aorta and coronary arteries. There are calcified mediastina l lymph nodes, consistent with chronic granulomatous disease. Heart size normal. No significant pleur al or pericardial effusion. No thoracic lymphadenopathy. There are calcified granulomas of the liver and spleen. There are gallstones. Gallbladder is distended although only partially visualized. There is thickening of the minor fissure. No endobronchial lesions. There is right lower lobe atelectasis. No endobronchial lesions. There is a 3 mm right upper lobe nodule in the superior segment. IMPRESSION: 1. Right upper lobe nodule measuring 3 mm, likely benign. Consider follow-up low dose CT chest in 12 months. 2: Thickening of the minor fissure, likely secondary to previous infectious/inflammatory process. 3: Cholelithiasis. Reviewed, dictated and finalized at location B. IMPRESSION: 1. Right upper lobe nodule measuring 3 mm, likely benign. Consider follow-up lo w dose CT chest in 12 months. 2: Thickening of the minor fissure, likely secondary to previous infectious/inf lammatory process. 3: Cholelithiasis.
== END 2022-02-01 09:24 | disposition home or self-care (01) ==
PROVIDERS: Visit Provider Internal Medicine Pulmonary Disease
DX: R91.1 Solitary pulmonary nodule (principal); K80.20 Calculus of gallbladder without cholecystitis without obstruction
CPT/HCPCS: 71250

== ENCOUNTER 2022-03-02 08:16 | Emergency (ER) | payer MEDICARE, OTHER, SELFPAY ==
[2022-03-02 08:17] VITALS: BP 173/63; PULSE 106; RESP 18; TEMP 36.7; O2SAT 97
[2022-03-02 08:28] VITALS: BP 160/60; PULSE 83; RESP 18; O2SAT 96
[2022-03-02] MEDS: HYDROcodone/acetaminophen (*CRX) 5-325 MG TABLET 1 TAB PO (08:52)
[2022-03-02 10:21] LABS: Strep Group A RT-PCR Not Detected (Negative)
[2022-03-02 11:07] VITALS: BP 148/67; PULSE 75; RESP 18; O2SAT 97
--- NOTE | 2022-03-02 11:18 | ED.GENADULT ---
HPI - General Adult General Chief complaint: Neck Pain/Injury Stated complaint: neck pain Time Seen by Provider: 03/02/22 08:25 History of Present Illness HPI narrative: Patient is a 66-year-old male who presents ER with right-sided neck pain. Patient reports he put on some [place] decorations couple days ago. He has had increased pain and now has significant pain in his right neck. Has difficulty with turning to the right side. No numbness or tingling in the arms or legs. He does report he has some mild discomfort if he swallows on the right side. No difficulty breathing or swallowing. Denies fevers or chills or sweats. No trauma to the head or neck. No car accidents or falls. Related Data Home Medications Medication Instructions Recorded Confirmed ramipril 10 mg capsule (Altace) 20 mg PO DAILY 05/11/20 02/20/22 aspirin 81 mg tablet 81 mg PO EVERY OTHER DAY 08/06/20 02/20/22 multivitamin (Daily Multi-Vitamin 100 tablet PO DAILY 08/14/20 02/20/22 tablet) pyridoxine (vitamin B6) 250 mg 250 mg PO DAILY 08/14/20 02/20/22 tablet (Vitamin B-6) albuterol sulfate 90 mcg/actuation 2 puff inhalation Q4H PRN 05/24/21 02/20/22 aerosol inhaler (ProAir HFA) shortness of breath or wheezing amlodipine 10 mg tablet 10 mg PO DAILY 08/02/21 02/20/22 atorvastatin 20 mg tablet 20 mg PO DAILY 08/02/21 02/20/22 metformin 1,000 mg tablet 1,000 mg PO BID 08/02/21 02/20/22 clopidogrel 75 mg tablet 75 mg PO DAILY 10/24/21 02/20/22 torsemide 20 mg tablet 20 mg PO QAM 10/24/21 02/20/22 oxygen-air delivery systems 12/07/21 02/20/22 spironolactone 25 mg tablet 25 mg PO DAILY 12/07/21 02/20/22 Allergies Allergy/AdvReac Type Severity Reaction Status Date / Time naproxen Allergy Unknown Hives / Verified 03/02/22 08:28 Red Face Review of Systems Review of Systems: All systems reviewed & are unremarkable except as noted in HPI and below Constitutional: Constitutional: Denies chills and Denies fever(s) ENT: Denies dysphagia, Denies nasal congestion and Denies sore throat Musculoskeletal: Musculoskeletal: Denies back pain, Denies joint swelling and Denies muscle cramps Comments: Neck pain Neurologic: Denies focal weakness and Denies numbness PMFSH Past Medical History Medical History Anxiety Aortic stenosis Chronic obstructive pulmonary disease Chronic respiratory failure with hypoxia, on home oxygen therapy Diabetic peripheral neuropathy Former smoker Patient smoked anywhere from 0.5 to 2 packs of cigarettes per day. Hyperlipidemia Hypertension Mitral stenosis ARCHANA (obstructive sleep apnea) PAD (peripheral artery disease) Type 2 diabetes mellitus Hemoglobin A1c was 6.8% on 05/14/2020. Surgical History Surgical History History of abdominal surgery As an . Patient is a poor historian regarding this surgery but does have a midline abdominal scar. History of colonoscopy with polypectomy Family History Family History Father Acute myocardial infarction, Onset Age: 50 Social History Social History Social History: The patient is and lives with his in [place]. Retired from [employer]. He smoked 0.5 to 2 packs of cigarettes per day for many years and quit in 2016. 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 No illicit substance use. He designates his Arlene as his surrogate decision maker and he wishes to be a full code. Smoking packs per day: 1 Smoking cigarettes per day: 20.0 Years smoked: 50 Smoking pack-years: 50.00 Smoking status: Former smoker Tobacco type: cigarettes Smoking end date: 01/04/18 Alcohol intake: former Substance use: never Last use: 5- or 6 yrs quit drinking Sexual [place]
== END 2022-03-02 11:27 | disposition home or self-care (01) ==
PROVIDERS: Emergency Provider Emergency Medicine
DX: M62.838 Other muscle spasm (principal); J44.9 Chronic obstructive pulmonary disease, unspecified; J96.11 Chronic respiratory failure with hypoxia; E11.42 Type 2 diabetes mellitus with diabetic polyneuropathy; E78.5 Hyperlipidemia, unspecified; I10 Essential (primary) hypertension; I08.0 Rheumatic disorders of both mitral and aortic valves; E11.51 Type 2 diabetes mellitus with diabetic peripheral angiopathy without gangrene; I73.9 Peripheral vascular disease, unspecified; G47.33 Obstructive sleep apnea (adult) (pediatric); Z99.81 Dependence on supplemental oxygen; Z87.891 Personal history of nicotine dependence; Z79.84 Long term (current) use of oral hypoglycemic drugs; Z79.82 Long term (current) use of aspirin
CPT/HCPCS: 87651; 99283; A9270

== ENCOUNTER 2022-03-04 09:45 | Outpatient (RCR) | payer MEDICARE, OTHER, SELFPAY ==
[2021-12-07 09:24] VITALS: PULSE 81
== END 2022-03-04 16:00 | disposition home or self-care (01) ==
LOC: ANHCPREHAB 09:45
DX: Z95.2 Presence of prosthetic heart valve (principal)
CPT/HCPCS: 93798

== ENCOUNTER 2022-03-06 07:59 | Outpatient (CLI) | payer MEDICARE, OTHER, SELFPAY ==
--- NOTE | 2022-03-07 13:15 | WPDSIXMINUTE ---
Six Minute Walk Procedure Procedure Performed Pulmonary Stress Test (6 min walk) Six Minute Walk Six Minute Walk: This 6 minute walk test was carried out with the patient breathing ambient air. The pre-walk oxyhemoglobin saturation was 96 %. The patient walked over 426 m with no stops during walking. The oxyhemoglobin saturation during the walk remained 92 % or higher. Impression: No evidence of oxyhemoglobin desaturation on this testing.
== END 2022-03-06 08:00 | disposition home or self-care (01) ==
LOC: ANHPFT 08:01
PROVIDERS: Visit Provider Internal Medicine Pulmonary Disease
DX: J40 Bronchitis, not specified as acute or chronic (principal); Z72.0 Tobacco use
CPT/HCPCS: 94618

== ENCOUNTER 2022-07-24 09:40 | Emergency (ER) | payer MEDICARE, OTHER, SELFPAY ==
[2022-07-24] VITALS (20 sets, daily range): BP systolic 113–145; BP diastolic 48–84; PULSE 77–93; RESP 11–20; TEMP 36.1; O2SAT 92–100
--- NOTE | ~2022-07-24 | XR_ITS ---
Portable chest x-ray Comparison: 09/03/2021 Clinical History: Dyspnea Findings: There is probable linear scarring right midlung versus minimal fluid in right minor fissur e. Probable additional linear bibasilar scarring or atelectasis. Cardiomediastinal silhouette is sta ble. Bones and soft tissues are unremarkable. Impression: Probable areas of linear bibasilar scarring or atelectasis, and possibly minimal fluid in the right m inor fissure. Reviewed, dictated and finalized at location M. Impression: Probable areas of linear bibasilar scarring or atelectasis, and possibly minima l fluid in the right minor fissure.
--- NOTE | 2022-07-24 09:46 | ECG_ITS ---
Measurements Intervals [place] Rate: 89 P: 19 IA: 160 QRS: 48 QRSD: 94 T: 48 QT: 336 QTc: 409 Interpretive Statements SINUS RHYTHM COMPARED TO ECG 09/03/2021 05:35:35 SINUS RHYTHM NOW PRESENT Electronically Signed On 07-24-2022 15:53:52 CDT by Irina Amaro M.D.
[2022-07-24 10:08] LABS: Basophils Absolute Auto 0.1 K/mm3 (0.0-0.1); Basophils Percent Auto 0.5 % (0.2-1.2); Eosinophils Absolute Auto 0.1 K/mm3 (0-0.3); Eosinophils Percent Auto 0.4 % (0-4.4); Hematocrit 41.9 % (42.0-52.0); Hemoglobin 13.3 g/dL (14.0-18.0); Immature Granulocyte Absolute 0.27 K/mm3 (0.00-0.031); Immature Granulocyte Percent A 1.8 % (0-0.5); Lymphocytes Absolute Auto 2.55 K/mm3 (0.9-3.2); Lymphocytes Percent Auto 16.8 % (18.3-44.2); Mean Corpuscular HGB Conc 31.7 g/dl (32-36); Mean Corpuscular Hemoglobin 28.4 pg (26-34); Mean Corpuscular Volume 89.5 fl (80-100); Mean Platelet Volume 9.6 fl (7.4-10.4); Monocytes Absolute Auto 1.8 K/mm3 (0.1-0.6); Monocytes Percent Auto 11.6 % (2.6-8.5); Neutrophils Absolute Auto 10.5 K/mm3 (1.3-6.7); Neutrophils Percent Auto 68.9 % (45.5-73.1); Platelet Count Result 272 k/mm3 (150-375); Red Blood Count 4.68 M/mm3 (4.6-6.20); Red Cell Distribution Width 13.3 % (11.5-14.5); White Blood Count 15.2 K/mm3 (4.5-10.0)
[2022-07-24 10:17] LABS: Alanine Aminotransferase 24 U/L (6-50); Albumin Level 4.7 g/dL (3.5-5.1); Alkaline Phosphatase 89 U/L (38-126); Anion Gap 9 mmol/L (8-16); Aspartate Amino Transferase 30 U/L (17-59); Bilirubin,Total 0.5 mg/dL (0.2-1.3); Blood Urea Nitrogen 28 mg/dL (9-20); Calcium 9.7 mg/dL (8.4-10.2); Carbon Dioxide 26 mmol/L (22-30); Chloride 103 mmol/L (98-107); Estimated CRCL calculation 82 ml/min; Estimated Glomerular Filt Rate > 60; Glucose 148 mg/dL (65-110); Potassium 4.6 mmol/L (3.4-5.0); Sodium 138 mmol/L (137-145)
[2022-07-24] MEDS: IPRATROPIUM BR 0.02% INH SOLN 0.5 MG/2.5 ML VIAL 1.5 MG INHALATION (10:25)
[2022-07-24] MEDS: LEVALBUTEROL NEB 1.25 MG/3 ML 2.5 MG INHALATION (10:26)
--- NOTE | 2022-07-24 11:15 | PC.NURSE ---
Patient report received from TRINI Desai . All questions answered and care of patient assumed.
--- NOTE | 2022-07-24 12:30 | PC.NURSE ---
Ambulatory pulse ox completed as per MD order. Patient sating 91-92% while seating. While ambulating patient sating 89-91%. No change in dyspnea while ambulating. Patient did not have increased work of breathing. MD made aware of results.
--- NOTE | 2022-07-24 13:22 | ED.SOB ---
HPI - SOB/Dyspnea General Chief Complaint: Shortness of Breath/Dyspnea Stated Complaint: SOB Time Seen by Provider: 07/24/22 09:51 History of Present Illness HPI Narrative: Patient is a 66-year-old male who presents ER with shortness of breath. Has history of COPD. Called his tape recorder repairer last week who put him on steroids for 5 days and a Z-Nick. Patient still has shortness of breath today so he came to the ER. He noted yesterday that he was hypoxic in the 80s with ambulation. Denies fevers or chills. No chest pain. Related Data Home Medications Medication Instructions Recorded Confirmed ramipril 10 mg capsule (Altace) 20 mg PO DAILY 05/11/20 02/20/22 aspirin 81 mg tablet 81 mg PO EVERY OTHER DAY 08/06/20 02/20/22 multivitamin (Daily Multi-Vitamin 100 tablet PO DAILY 08/14/20 02/20/22 tablet) pyridoxine (vitamin B6) 250 mg 250 mg PO DAILY 08/14/20 02/20/22 tablet (Vitamin B-6) albuterol sulfate 90 mcg/actuation 2 puff inhalation Q4H PRN 05/24/21 02/20/22 aerosol inhaler (ProAir HFA) shortness of breath or wheezing amlodipine 10 mg tablet 10 mg PO DAILY 08/02/21 02/20/22 atorvastatin 20 mg tablet 20 mg PO DAILY 08/02/21 02/20/22 metformin 1,000 mg tablet 1,000 mg PO BID 08/02/21 02/20/22 clopidogrel 75 mg tablet 75 mg PO DAILY 10/24/21 02/20/22 torsemide 20 mg tablet 20 mg PO QAM 10/24/21 02/20/22 oxygen-air delivery systems 12/07/21 02/20/22 spironolactone 25 mg tablet 25 mg PO DAILY 12/07/21 02/20/22 Allergies Allergy/AdvReac Type Severity Reaction Status Date / Time naproxen Allergy Unknown Hives / Verified 03/02/22 08:28 Red Face Review of Systems Review of Systems: All systems reviewed & are unremarkable except as noted in HPI and below Constitutional: Constitutional: Denies chills and Denies fever(s) ENT: Denies nasal congestion and Denies sore throat Cardiovascular: Cardiovascular: Denies chest pain, Denies rapid heart rate and Denies radiating jaw, neck or arm pain Respiratory: Respiratory: Reports cough, Reports dyspnea and Reports wheezing Gastrointestinal: Gastrointestinal: Denies abdominal pain, Denies nausea and Denies vomiting PMFSH Past Medical History Medical History Anxiety Aortic stenosis Chronic obstructive pulmonary disease Chronic respiratory failure with hypoxia, on home oxygen therapy Diabetic peripheral neuropathy Former smoker Patient smoked anywhere from 0.5 to 2 packs of cigarettes per day. Hyperlipidemia Hypertension Mitral stenosis ARCHANA (obstructive sleep apnea) PAD (peripheral artery disease) Type 2 diabetes mellitus Hemoglobin A1c was 6.8% on 05/14/2020. Surgical History Surgical History History of abdominal surgery As an infant. Patient is a poor historian regarding this surgery but does have a midline abdominal scar. History of colonoscopy with polypectomy Family History Family History Father Acute myocardial infarction, Onset Age: 50 Social History Social History Social History: The patient is and lives with his in [place]. Retired from [employer]. He smoked 0.5 to 2 packs of cigarettes per day for many years and quit in 2016. 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 No illicit substance use. He designates his Arlene as his surrogate decision maker and he wishes to be a full code. Smoking packs per day: 1 Smoking cigarettes per day: 20.0 Years smoked: 50 Smoking pack-years: 50.00 Smoking status: Former smoker Tobacco type: cigarettes Smoking end date: 01/04/18 Alcohol intake: former Substance use: never Last use: 5- or 6 yrs quit drinking Sexual Orientation (if Verbalized by the Patient): Straight or Heterosexual [employer]
== END 2022-07-24 13:36 | disposition home or self-care (01) ==
PROVIDERS: Emergency Provider Emergency Medicine; PCP Internal Medicine Pulmonary Disease
DX: J44.1 Chronic obstructive pulmonary disease with (acute) exacerbation (principal); J96.11 Chronic respiratory failure with hypoxia; E11.42 Type 2 diabetes mellitus with diabetic polyneuropathy; E11.51 Type 2 diabetes mellitus with diabetic peripheral angiopathy without gangrene; I73.9 Peripheral vascular disease, unspecified; I10 Essential (primary) hypertension; I08.0 Rheumatic disorders of both mitral and aortic valves; E78.5 Hyperlipidemia, unspecified; G47.33 Obstructive sleep apnea (adult) (pediatric); Z99.81 Dependence on supplemental oxygen; Z87.891 Personal history of nicotine dependence; Z79.82 Long term (current) use of aspirin; Z79.84 Long term (current) use of oral hypoglycemic drugs
CPT/HCPCS: 36415; 71045; 80053; 85025; 93005; 94640; 99283

== ENCOUNTER 2023-02-03 12:42 | Outpatient (CLI) | payer MEDICARE, OTHER, SELFPAY ==
--- NOTE | ~2023-02-03 | CT_ITS ---
EXAMINATION: CT lung screening DATE: 02/03/2023 13:12 INDICATION: Personal history of nicotine dependence TECHNIQUE: Computed tomography (CT) of the chest was performed without intravenous contrast. The dose -length product was 561.11 mGy-cm. Automated exposure control and iterative reconstruction technique were employed. COMPARISON: CT dated 02/01/2022 FINDINGS: There is atherosclerosis of the aorta and coronary arteries. There is a prosthetic aortic v alve. No significant pleural or pericardial effusion. There are possible gallstones. There are calcif ied granulomas of the liver and spleen. Mild emphysema. There is fissural thickening on the right. 3 mm right upper lobe nodule is unchanged. No endobronchial lesions. No pneumothorax. There is dependen t atelectasis. Mild thoracic spondylosis. IMPRESSION: 1. Lung-RADS category 2: Benign appearance or behavior. Continue annual screening with noncontrast lo w-dose chest CT in 12 months. Reviewed, dictated and finalized at location A. IMPRESSION: 1. Lung-RADS category 2: Benign appearance or behavior. Continue annual screeni ng with noncontrast low-dose chest CT in 12 months.
== END 2023-02-03 12:43 | disposition home or self-care (01) ==
PROVIDERS: Visit Provider Internal Medicine Pulmonary Disease
DX: Z12.2 Encounter for screening for malignant neoplasm of respiratory organs (principal); Z87.891 Personal history of nicotine dependence
CPT/HCPCS: 71271

== ENCOUNTER 2023-04-08 17:38 | Emergency (ER) | payer MEDICARE, OTHER, SELFPAY ==
--- NOTE | ~2023-04-08 | CT_ITS ---
Clinical Indication: Dyspnea CT Scan of the Chest with Contrast: Technique: Contiguous sections were acquired throughout the chest after intravenous administration of 100 cc of Omnipaque 350. Dose reduction technique was used on this scan by utilizing automated expos ure control and iterative reconstruction technique. The dose-length product (DLP) was 1029.26 mGy-cm. COMPARISON: 02/03/2023 Findings: There is no evidence of any significant mediastinal, hilar or axillary lymphadenopathy. There is no f illing defect in the pulmonary arterial tree to suggest pulmonary embolus. There is no evidence of ao rtic dissection or aneurysm. There are atherosclerotic changes of the aorta. Patient is status post a ortic valve replacement. There is no evidence of pleural or pericardial effusion. There is bibasilar scarring and/or atelectatic change, similar to prior exam. There is minimal nodula rity in the right upper lobe (axial image 57 for example), suggestive of focal pneumonitis/small airw ays infectious process. Images through the upper abdomen reveal no abnormalities. Impression: No evidence of pulmonary embolus, aortic dissection, or aortic aneurysm. Probable focal area of mild small airways infectious process/pneumonitis in the right upper lobe. Reviewed, dictated and finalized at location . IAL PROGRAMS DIRECTOR Impression: No evidence of pulmonary embolus, aortic dissection, or aortic aneurysm. Probable focal area of mild small airways infectious process/pneumonitis in the right upper lobe.
--- NOTE | ~2023-04-08 | XR_ITS ---
Portable chest x-ray Comparison: 07/24/2022 Clinical History: Cough Findings: Linear areas of bibasilar scarring are present. Possible COPD. Cardiomediastinal silhouet te is stable. Bones and soft tissues are unremarkable. Impression: Linear areas of bibasilar scarring, stable from prior exam. Possible COPD. Reviewed, dictated and finalized at [facility]. TRICIAN MANAGER Impression: Linear areas of bibasilar scarring, stable from prior exam. Possible COPD.
[2023-04-08 18:16] VITALS: BP 172/59; PULSE 111; RESP 20; TEMP 36.6; O2SAT 94
--- NOTE | 2023-04-08 23:37 | ED.URI ---
HPI - URI/Sore Throat General Chief Complaint: Upper Respiratory Infection Stated Complaint: st/congestion/tachy Time Seen by Provider: 04/08/23 22:35 History of Present Illness HPI Narrative: 67-year-old male with a history of peripheral arterial disease, ARCHANA on 3 L at night, type 2 diabetes, COPD, CHF, s/p TAVR and cardiac stents reports for evaluation for dyspnea, productive cough and sore throat. Patient states 2 days ago he developed a sore throat. He has been gargling salt water with mild improvement. States yesterday he began developing a productive cough with dyspnea. Today around 230, he did a nebulizer treatment without relief. Later in the evening, he was trying to get dressed when he became short of breath. States he took his oxygen at that time was 84% and his heart rate was 129 which prompted him come to the ED. he states he smoked for 45-50 years, however quit smoking 70 years ago. He does report a history of COPD. He denies chest pain, fever, abdominal pain, nausea, vomiting, diarrhea, dysuria or hematuria, lower extremity edema, calf pain, history of BT. He follows with cardiology at [facility] and sees Dr. Sanchez pulmonology at [place]. Related Data Home Medications Medication Instructions Recorded Confirmed ramipril 10 mg capsule (Altace) 20 mg PO DAILY 05/11/20 07/30/22 aspirin 81 mg tablet 81 mg PO EVERY OTHER DAY 08/06/20 07/30/22 multivitamin (Daily Multi-Vitamin 100 tablet PO DAILY 08/14/20 07/30/22 tablet) pyridoxine (vitamin B6) 250 mg 250 mg PO DAILY 08/14/20 07/30/22 tablet (Vitamin B-6) amlodipine 10 mg tablet 10 mg PO DAILY 08/02/21 07/30/22 metformin 1,000 mg tablet 1,000 mg PO BID 08/02/21 07/30/22 clopidogrel 75 mg tablet 75 mg PO DAILY 10/24/21 07/30/22 torsemide 20 mg tablet 20 mg PO QAM 10/24/21 07/30/22 oxygen-air delivery systems 12/07/21 07/30/22 atorvastatin 40 mg tablet 40 mg PO DAILY 01/22/23 metoprolol succinate 25 mg 12.5 mg PO DAILY 01/22/23 tablet,extended release 24 hr nitroglycerin 0.4 mg sublingual 0.4 mg sublingual ONCE 01/22/23 tablet Allergies Allergy/AdvReac Type Severity Reaction Status Date / Time naproxen Allergy Unknown Hives / Verified 04/08/23 22:15 Red Face Review of Systems Review of Systems: CONSTITUTIONAL: Denies fever, chills, or sweats. EYES: Denies visual changes, redness, or discharge. ENT: see HPI CARDIOVASCULAR: Denies chest pain, palpitations, or edema. RESPIRATORY: see HPI GASTROINTESTINAL: Denies abdominal pain, nausea, vomiting, or diarrhea. GENITOURINARY: Denies dysuria or hematuria. SKIN: Denies rash or itching. MUSCULOSKELETAL: Denies back pain, joint pain, or myalgia. NEUROLOGIC: Denies headache, numbness, or weakness. PSYCHIATRIC: Denies anxiety or depression. [facility] Past Medical History Medical History Anxiety Aortic stenosis Chronic obstructive pulmonary disease Chronic respiratory failure with hypoxia, on home oxygen therapy Diabetic peripheral neuropathy Former smoker Patient smoked anywhere from 0.5 to 2 packs of cigarettes per day. Hyperlipidemia Hypertension Mitral stenosis ARCHANA (obstructive sleep apnea) PAD (peripheral artery disease) Type 2 diabetes mellitus Hemoglobin A1c was 6.8% on 05/14/2020. Surgical History Surgical History History of abdominal surgery As an infant. Patient is a poor historian regarding this surgery but does have a midline abdominal scar. History of colonoscopy with polypectomy Family History Family History Father Acute myocardial infarction, Onset Age: 50 Social History Social History Social History: The patient is and lives with his in [place]. Retired from [employer]. He smoked 0.5 to 2 packs of cigarett
[2023-04-08 23:50] VITALS: PULSE 107; RESP 20
[2023-04-08] MEDS: IPRATROPIUM BR 0.02% INH SOLN 0.5 MG/2.5 ML VIAL INHALATION (23:50)
[2023-04-08] MEDS: ALBUTEROL SULFATE NEB 2.5 MG/3 ML INH INHALATION (23:50)
[2023-04-09] VITALS (12 sets, daily range): BP systolic 113–145; BP diastolic 51–80; PULSE 88–114; RESP 12–23; O2SAT 91–99
--- NOTE | 2023-04-09 | ECG_ITS ---
Measurements Intervals [place] Rate: 100 P: -67 SC: 142 QRS: 66 QRSD: 109 T: 49 QT: 350 QTc: 453 Interpretive Statements ECTOPIC ATRIAL TACHYCARDIA INCOMPLETE RIGHT BUNDLE BRANCH BLOCK MINIMAL Q WAVES- INFERIOR LEADS BASELINE ARTIFACT- I, II, III ABNORMAL ECG COMPARED TO ECG 04/09/2023 00:47:00 ECTOPIC ATRIAL TACHYCARDIA NOW PRESENT Electronically Signed On 04-09-2023 7:58:31 COUNTER HOP by Marlon Andrade D.O.
[2023-04-09 00:01] LABS: Basophils Absolute Auto 0.1 K/mm3 (0.0-0.1); Basophils Percent Auto 0.4 % (0.2-1.2); Eosinophils Absolute Auto 0.1 K/mm3 (0-0.3); Eosinophils Percent Auto 0.5 % (0-4.4); Hematocrit 42.8 % (42.0-52.0); Hemoglobin 13.4 g/dL (14.0-18.0); Immature Granulocyte Absolute 0.05 K/mm3 (0.00-0.031); Immature Granulocyte Percent A 0.3 % (0-0.5); Lymphocytes Absolute Auto 1.62 K/mm3 (0.9-3.2); Lymphocytes Percent Auto 10.9 % (18.3-44.2); Mean Corpuscular HGB Conc 31.3 g/dl (32-36); Mean Corpuscular Hemoglobin 27.6 pg (26-34); Mean Corpuscular Volume 88.1 fl (80-100); Mean Platelet Volume 9.4 fl (7.4-10.4); Monocytes Absolute Auto 1.7 K/mm3 (0.1-0.6); Monocytes Percent Auto 11.1 % (2.6-8.5); Neutrophils Absolute Auto 11.4 K/mm3 (1.3-6.7); Neutrophils Percent Auto 76.8 % (45.5-73.1); Platelet Count Result 251 k/mm3 (150-375); Red Blood Count 4.86 M/mm3 (4.6-6.20); Red Cell Distribution Width 13.9 % (11.5-14.5); White Blood Count 14.8 K/mm3 (4.5-10.0)
[2023-04-09] MEDS: ALBUTEROL SULFATE NEB 2.5 MG/3 ML INH INHALATION ×2 (00:17→00:30)
[2023-04-09] MEDS: IPRATROPIUM BR 0.02% INH SOLN 0.5 MG/2.5 ML VIAL INHALATION ×2 (00:17→00:30)
[2023-04-09] MEDS: methylPREDNISolone SOD SUCC 125 MG VIAL IV PUSH (00:20)
[2023-04-09 00:21] LABS: Alanine Aminotransferase 22 U/L (6-50); Albumin Level 4.7 g/dL (3.5-5.1); Alkaline Phosphatase 102 U/L (38-126); Anion Gap 10 mmol/L (8-16); Aspartate Amino Transferase 30 U/L (17-59); Bilirubin,Total 0.8 mg/dL (0.2-1.3); Blood Urea Nitrogen 28 mg/dL (9-20); Calcium 9.8 mg/dL (8.4-10.2); Carbon Dioxide 26 mmol/L (22-30); Chloride 101 mmol/L (98-107); Estimated CRCL calculation 55 ml/min; Estimated Glomerular Filt Rate 47; Glucose 155 mg/dL (65-110); Magnesium 1.9 mg/dL (1.6-2.3); Potassium 4.6 mmol/L (3.4-5.0); Sodium 137 mmol/L (137-145)
[2023-04-09 00:25] LABS: Prothrombin Time 13.3 Seconds (11.1-14.7)
[2023-04-09 00:26] LABS: Partial Thromboplastin Time 36.3 SECONDS (22.3-36.8)
[2023-04-09 00:33] LABS: NT Pro B Type Natriuretic Pept 625 pg/mL (19.9-100); Troponin I < 0.012 ng/mL (0.000-0.034)
[2023-04-09 00:36] LABS: D Dimer 0.93 ug/mL (<0.48)
[2023-04-09 00:50] LABS: Influenza A QL RT-PCR Negative (Negative); Influenza B QL RT-PCR Negative (Negative); RSV RNA, RT-PCR Negative (Negative); SARS-CoV-2 RNA PCR Negative (Negative)
[2023-04-09 02:01] LABS: Strep Group A RT-PCR NOT DETECTED (Negative)
--- NOTE | 2023-04-09 03:36 | ECG_ITS ---
Measurements Intervals [place] Rate: 109 P: -72 KS: 139 QRS: 65 QRSD: 101 T: 38 QT: 326 QTc: 439 Interpretive Statements SINUS OR ECTOPIC ATRIAL TACHYCARDIA ATRIAL PREMATURE COMPLEX INCOMPLETE RIGHT BUNDLE BRANCH BLOCK DELAYED PRECORDIAL R/S TRANSITION BASELINE ARTIFACT- I, II, III, AVR, AVL, AVF ABNORMAL ECG COMPARED TO ECG 07/24/2022 09:57:12 INCOMPLETE RIGHT BUNDLE-BRANCH BLOCK NOW PRESENT Electronically Signed On 04-09-2023 7:54:34 MAGISTERIAL DISTRICT JUDGE by Marlon Andrade D.O.
[2023-04-09] MEDS: SODIUM CHLORIDE 0.9% IV 1,000 ML 999 ML IV CONT (03:57)
[2023-04-09] MEDS: AZITHROMYCIN 250 MG TABLET 500 MG PO (06:56)
== END 2023-04-09 07:00 | disposition home or self-care (01) ==
PROVIDERS: Physician Assistant; Student in an Organized Health Care Education/Training Program; Emergency Provider Student in an Organized Health Care Education/Training Program
DX: J18.9 Pneumonia, unspecified organism (principal); J44.1 Chronic obstructive pulmonary disease with (acute) exacerbation; N17.9 Acute kidney failure, unspecified; I11.0 Hypertensive heart disease with heart failure; I50.9 Heart failure, unspecified; E11.9 Type 2 diabetes mellitus without complications; E78.5 Hyperlipidemia, unspecified; Z87.891 Personal history of nicotine dependence; Z20.822 Contact with and (suspected) exposure to COVID-19
CPT/HCPCS: 36415; 71045; 71275; 80053; 83735; 83880; 84484; 85025; 85380; 85610; 85730; 87637; 87651; 93005; 94640; 96361; 96374; 99284; A9270; J2930; J7030; Q9967

== ENCOUNTER 2023-07-21 16:01 | Emergency (ER) | payer MEDICARE, OTHER, SELFPAY ==
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
[2023-07-21 16:13] VITALS: BP 165/59; PULSE 76; RESP 16; TEMP 36.7; O2SAT 97
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
== END 2023-07-21 17:32 | disposition home or self-care (01) ==
PROVIDERS: Emergency Provider Nurse Practitioner Family
DX: F41.9 Anxiety disorder, unspecified (principal); Z87.891 Personal history of nicotine dependence; I35.0 Nonrheumatic aortic (valve) stenosis; J44.9 Chronic obstructive pulmonary disease, unspecified; E11.42 Type 2 diabetes mellitus with diabetic polyneuropathy; E78.5 Hyperlipidemia, unspecified; I10 Essential (primary) hypertension; I05.0 Rheumatic mitral stenosis; Z79.82 Long term (current) use of aspirin
CPT/HCPCS: 72040; 99213; G0463

== ENCOUNTER 2025-02-18 15:37 | Outpatient (CLI) | payer MEDICARE, SELFPAY ==
--- NOTE | ~2025-02-18 | CT_ITS ---
EXAMINATION:CT lung screening DATE: 02/18/2025 15:50 INDICATION: Screening TECHNIQUE: Computed tomography (CT) of the chest was performed without intravenous contrast. The dose-length product (DLP) was 501.54 mGy-cm. COMPARISON: February 09, 2024 FINDINGS: No new nodules or masses. Scattered fibrotic appearing changes in the lung bases. No acute intrathoracic process. Heart and great vessels appear stable including aortic valvular replacement, and extensive coronary artery calcifications/stenting. Evidence of old granulomatous disease. No acute process seen in the visualized portions of the upper abdomen, extrathoracic soft tissues or bony thorax. IMPRESSION: 1. Stable exam. LUNG RADS 2. Follow-up low-dose lung cancer screening chest CT recommended in 12 months. 2. Chronic findings as above. Reviewed, dictated and finalized at location A. [employer]
== END 2025-02-18 15:38 | disposition home or self-care (01) ==
PROVIDERS: Visit Provider Internal Medicine Pulmonary Disease
DX: Z12.2 Encounter for screening for malignant neoplasm of respiratory organs (principal); Z87.891 Personal history of nicotine dependence
CPT/HCPCS: 71271